=== PATIENT | female | born 1950 | race Caucasian/White ===

== ENCOUNTER 2020-12-10 12:49 | Emergency (ER) | payer MEDICARE, OTHER, SELFPAY ==
--- NOTE | ~2020-12-10 | XR_ITS ---
EXAMINATION: XR finger 1st LT min 2V INDICATION: Left first finger pain TECHNIQUE: Three views of the left first finger are obtained. COMPARISON: None available FINDINGS: Bone alignment is normal. There is moderate osteoarthritis at the triscaphe, first carpomet acarpal, and interphalangeal joints. No fracture is identified. There is mild soft tissue swelling. IMPRESSION: 1. No acute osseous abnormality. Reviewed, dictated and finalized at location A.
[2020-12-10 13:00] VITALS: BP 115/67; PULSE 57; RESP 20; TEMP 36.5; O2SAT 100
--- NOTE | 2020-12-10 13:48 | ED.UPPEXIN ---
HPI - Extremity Injury (Upper) General Chief Complaint: Extremity Injury, Upper Stated Complaint: left thumb injury Time Seen by Provider: 12/10/20 13:40 Source: patient and RN notes reviewed Mode of arrival: ambulatory Limitations: no limitations History of Present Illness HPI narrative: 70 year old female presents to express care with complaints of being outside of her apartment complex and slipping in the mud yesterday and fell forward hyperextending her left thumb and hitting her left knee on the ground. Patient states that she has some bruising to the medial aspect of her left knee but is able to move knee and walk on knee with no problems, has had previous total knee replacement. Left thumb is red and swollen with discomfort with movement of thumb. Patient states that pain to her thumb is throbbing and rates pain a 5/10, has been taking Butalbital for her pain. Patient denies any injury to her head, no loss of consciousness,had to call police to help her get up. Patient is right hand dominant. MD complaint: injury to: left and finger (thumb) Onset (ago): day(s) Other Extremity Injury: Left: fingers (thumb) Handedness: right Place: outdoors Related Data Home Medications Medication Instructions Recorded Confirmed alprazolam 0.5 mg PO BID PRN 12/10/20 12/10/20 amlodipine 10 mg PO DAILY 12/10/20 12/10/20 buspirone 15 mg PO TID 12/10/20 12/10/20 jlavzzudln-kayexgnhkbvlh-dicp 2 tablet PO Q4-6H PRN 12/10/20 12/10/20 duloxetine 30 mg PO BID 12/10/20 12/10/20 gabapentin 400 mg PO BID 12/10/20 12/10/20 levothyroxine 100 mcg PO DAILY 12/10/20 12/10/20 losartan 100 mg PO DAILY 12/10/20 12/10/20 montelukast 10 mg PO DAILY 12/10/20 12/10/20 pantoprazole 40 mg PO QAM 12/10/20 12/10/20 semaglutide [Ozempic] 0.5 mg SUBCUT WEEKLY 12/10/20 12/10/20 simvastatin 20 mg PO DAILY 12/10/20 12/10/20 tizanidine 2 mg PO Q8H PRN 12/10/20 12/10/20 warfarin [Coumadin] 4 mg PO DAILY 12/10/20 12/10/20 Allergies Allergy/AdvReac Type Severity Reaction Status Date / Time Sulfa (Sulfonamide Allergy Mild Rash Verified 12/10/20 13:46 Antibiotics) Corticosteroids AdvReac Intermediate Other Verified 12/10/20 13:47 (Glucocorticoids) hydromorphone [From Dilaudid] AdvReac Mild Itching Verified 12/10/20 13:46 morphine AdvReac Mild Nausea Verified 12/10/20 13:47 Review of Systems Review of Systems: CONSTITUTIONAL: Denies fever, chills, or sweats. EYES: Denies visual changes, redness, or discharge. ENT: Denies rhinorrhea, congestion, sore throat, or otalgia. CARDIOVASCULAR: Denies chest pain, palpitations, or edema. RESPIRATORY: Denies cough or dyspnea. GASTROINTESTINAL: Denies abdominal pain, nausea, vomiting, or diarrhea. GENITOURINARY: Denies dysuria or hematuria. SKIN: Denies rash or itching.Small area of bruising medial aspect of left knee, left thumb and carpal area swollen with bruising noted MUSCULOSKELETAL: Denies acute back pain has history of chronic back problems,no acute joint pain except for pain to left thumb NEUROLOGIC: Denies headache, numbness, or weakness. PSYCHIATRIC: Positive history of anxiety or depression. All systems reviewed & are unremarkable except as noted in HPI and below PMFSH Past Medical History Medical History (Updated 12/11/20 @ 00:00 by Marco Daemrashida) Asthma Bronchitis Diabetes Fibromyalgia Hyperlipidemia Hypertension Surgical History Surgical History (Updated 12/10/20 @ 17:24 by Emilie Vicente NP) H/O section H/O gastric bypass History of bilateral knee replacement Hx of tonsillectomy Family History Family History (Updated 12/10/20 @ 14:10 by Emilie Vicente NP) Mother Heart disease Cerebrovascular accident Hypertension Grandparent Diabetes mellitus Father Hypertension Diabetes mellitus Cirrhosis Sibling Hypertension Social History Social History (Updated 12/10/20 @ 14:09 by Emilie Vicente NP) Smoking status: Never smoker Alcohol intake: former Alcohol use
== END 2020-12-10 14:16 | disposition home or self-care (01) ==
PROVIDERS: Emergency Provider Registered Nurse; PCP Family Medicine
DX: S60.012A Contusion of left thumb without damage to nail, initial encounter (principal); W01.0XXA Fall on same level from slipping, tripping and stumbling without subsequent striking against object, initial encounter; J45.909 Unspecified asthma, uncomplicated; E11.9 Type 2 diabetes mellitus without complications; M79.7 Fibromyalgia; E78.5 Hyperlipidemia, unspecified; I10 Essential (primary) hypertension; Z98.84 Bariatric surgery status; Z96.653 Presence of artificial knee joint, bilateral
CPT/HCPCS: 73140; 99213; G0463

== ENCOUNTER 2021-03-17 11:13 | Emergency (ER) | payer MEDICARE, OTHER, SELFPAY ==
--- NOTE | ~2021-03-17 | XR_ITS ---
EXAMINATION: XR chest 2V DATE: 03/17/2021 11:53 INDICATION: Chest pain TECHNIQUE: PA and lateral views of the chest were obtained. COMPARISON: None FINDINGS: The lungs are clear with no focal airspace opacities, pulmonary edema, pleural effusion or pneumothor ax. The cardiomediastinal silhouette is normal. Instrumented anterior and posterior spinal fusion at the lower cervical spine with the posterior fusion extending to the upper thoracic spine. Distal righ t clavicle resection. Sutures along the anterior abdominal wall with multiple surgical clips in the e pigastric region. IMPRESSION: 1. No acute cardiopulmonary disease. Reviewed, dictated and finalized at location B. EN EXAMINER
--- NOTE | ~2021-03-17 | US_ITS ---
EXAMINATION: US venous doppler LE RT DATE: 03/17/2021 14:03 INDICATION: Right lower limb pain and ecchymosis TECHNIQUE: Grayscale ultrasound images without and with compression and Doppler ultrasound images of the right lower extremity veins were obtained. COMPARISON: None. FINDINGS: The visualized portions of right common femoral vein, profunda (deep) femoral vein, femoral vein, pop liteal vein, posterior tibial veins, peroneal veins, gastrocnemius vein and greater saphenous vein ou tflow are patent. IMPRESSION: 1. No deep venous thrombosis in the right lower limb. Reviewed, dictated and finalized at location B. R LOCOMOTIVE
--- NOTE | 2021-03-17 11:15 | ECG_ITS ---
Measurements Intervals [place] Rate: 65 P: 29 IL: 165 QRS: 4 QRSD: 81 T: 28 QT: 406 QTc: 423 Interpretive Statements SINUS RHYTHM BORDERLINE R WAVE PROGRESSION, ANTERIOR LEADS BASELINE ARTIFACT- I, II ,III, AVR, AVF BORDERLINE ECG Electronically Signed On 03-17-2021 11:29:23 ASSOCIATE by Paul Carrero D.O.
[2021-03-17 11:22] VITALS: BP 151/87; PULSE 73; RESP 18; TEMP 36.3; O2SAT 100
[2021-03-17 11:41] LABS: Basophils Percent Auto 0.2 % (0.2-1.2); Eosinophils Absolute Auto 0.1 K/mm3 (0-0.3); Eosinophils Percent Auto 3.1 % (0-4.4); Hematocrit 36.6 % (37.0-47.0); Hemoglobin 11.9 g/dL (12.0-15.0); Immature Granulocyte Absolute 0.01 K/mm3 (0.00-0.031); Immature Granulocyte Percent A 0.2 % (0-0.5); Mean Corpuscular HGB Conc 32.5 g/dl (32-36); Mean Corpuscular Hemoglobin 31.2 pg (26-34); Mean Corpuscular Volume 96.1 fl (80-100); Monocytes Absolute Auto 0.3 K/mm3 (0.1-0.6); Monocytes Percent Auto 6.7 % (2.6-8.5); Neutrophils Absolute Auto 2.2 K/mm3 (1.3-6.7); Neutrophils Percent Auto 53.8 % (45.5-73.1); Platelet Count Result 205 k/mm3 (150-375); Red Blood Count 3.81 M/mm3 (4.2-5.4); Red Cell Distribution Width 13.5 % (11.5-14.5); White Blood Count 4.2 K/mm3 (4.5-10.0)
[2021-03-17 11:53] LABS: Alanine Aminotransferase 21 U/L (4-35); Albumin Level 4.2 g/dL (3.5-5.1); Alkaline Phosphatase 80 U/L (38-126); Anion Gap 8 mmol/L (8-16); Aspartate Amino Transferase 32 U/L (14-36); Bilirubin,Total 0.4 mg/dL (0.2-1.3); Blood Urea Nitrogen 13 mg/dL (7-17); Calcium 9.3 mg/dL (8.4-10.2); Carbon Dioxide 25 mmol/L (22-30); Chloride 107 mmol/L (98-107); Estimated CRCL calculation 47 ml/min; Estimated Glomerular Filt Rate 60; Glucose 130 mg/dL (65-110); Lipase 44 U/L (23-300); Potassium 3.9 mmol/L (3.4-5.0); Sodium 140 mmol/L (137-145)
[2021-03-17 11:54] LABS: INR 2.6; Prothrombin Time 26.9 Seconds (11.1-14.7)
[2021-03-17 11:55] LABS: Partial Thromboplastin Time 33.2 SECONDS (22.3-36.8)
[2021-03-17 12:02] LABS: Troponin I < 0.012 ng/mL (0.000-0.034)
--- NOTE | 2021-03-17 13:30 | ED.GENADULT ---
HPI - General Adult General Chief complaint: Chest Pain Stated complaint: CP, SOB Time Seen by Provider: 03/17/21 13:06 History of Present Illness HPI narrative: 78-year-old female presents to the emergency department for evaluation of right lower extremity ecchymosis. 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 Patient sat on her chair yesterday incorrectly and struck her right posterior thigh on the armrest. Patient states that she noticed increased ecchymosis and pain of the right lower extremity this morning. Patient also reports some right-sided chest pain. Patient states she has no previous cardiac history. Patient states the chest pain does feel similar to her anxiety and states that she does feel anxious at this time. 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 Patient is taking her Coumadin as directed but is unsure of her INR today. Related Data Allergies Allergy/AdvReac Type Severity Reaction Status Date / Time morphine Allergy Itching Verified 03/17/21 13:07 sulfur dioxide Allergy Itching Verified 03/17/21 13:07 Review of Systems Review of Systems: CONSTITUTIONAL: Denies fever, chills, or sweats. EYES: Denies visual changes, redness, or discharge. ENT: Denies rhinorrhea, congestion, sore throat, or otalgia. CARDIOVASCULAR: Reproducible right-sided chest pain. no palpitations, or edema. RESPIRATORY: Denies cough or dyspnea. GASTROINTESTINAL: Denies abdominal pain, nausea, vomiting, or diarrhea. GENITOURINARY: Denies dysuria or hematuria. SKIN: Denies rash or itching. MUSCULOSKELETAL: Right lower leg pain and ecchymosis NEUROLOGIC: Denies headache, numbness, or weakness. PSYCHIATRIC: Denies anxiety or depression. Exam Narrative: APPEARANCE: Well appearing, no pain in distress, well-nourished. Head normocephalic atraumtaic. EYES: PERRLA/EOMI, conjunctivae very clear. NOSE: Normal no drainage EARS:TMS clear Jesse Zafar, with good light reflex. THROAT: Pharynx clear, no exudate. NECK: Supple. No adenopathy, no masses. RESPIRATORY: Airway patent, repsirations nonlabored. Clear to auscultation bilaterally, no rales, rhonchi, wheezing. CARDIOVASCULAR: Regular rate and rhythm without murmurs rubs or gallops, reproducible right-sided chest tenderness to palpation. ABDOMINAL: Soft, nontender, nondistended, no hepatosplenomegally MUSCULOSKELETAl: Right posterior thigh tenderness to palpation with ecchymosis behind right knee and into right calf with tenderness of the right calf. No significant right-sided lower extremity edema NEURO: Alert. Cranial nerves II through XII intact. Good gait. Good coordination SKIN:: Warm, dry. Normal Color PSYCHIATRIC: Normal affect/mood, normal interaction with parents. Course Course Emergency Course: Patient does have history of DVT and does have some right calf tenderness to palpation. Patient's INR was therapeutic. To further rule out lower extremity DVT from the injury a lower extremity Doppler was ordered and this was negative for DVT. Patient is not tachycardic and patient is not hypoxic. With the negative DVT I have low concern for a concurrent pulmonary embolism at this time. Therefore I am not ordering a CT PE study. Patient did have some right-sided pleuritic chest pain that was worsened with deep inspiration. Patient states she does feel improved at this time. Patient denies any shortness of breath. Patient states the pain that she was having did feel similar to her anxiety. Patient was updated on the results of her ultrasound and labs. Patient was also updated on the anticipated course of illness and on the importance of a close follow-up with her primary care physician. Patient was comfortable with the plan for discharge and close follow-up. Vital Signs Vital signs: Vital Signs Temperature 97.4 F L 03/17/21 11:22 Pulse Rate 73 03/17/21 11:22 Respiratory Rate 18 03/17/21 11:22 Blood Press
[2021-03-17 14:58] LABS: Troponin I < 0.012 ng/mL (0.000-0.034)
[2021-03-17] MEDS: ACETAMINOPHEN/BUTALBITAL/CAFFEINE 325-50-40 MG TABLET (FIORICET) 1 TAB PO (15:09)
== END 2021-03-17 15:25 | disposition home or self-care (01) ==
PROVIDERS: Emergency Medicine; Emergency Provider Emergency Medicine; PCP Family Medicine
DX: S80.11XA Contusion of right lower leg, initial encounter (principal); S89.91XA Unspecified injury of right lower leg, initial encounter; R07.1 Chest pain on breathing; Z86.718 Personal history of other venous thrombosis and embolism; Z79.01 Long term (current) use of anticoagulants; X58.XXXA Exposure to other specified factors, initial encounter
CPT/HCPCS: 36415; 71046; 80053; 83690; 84484; 85025; 85610; 85730; 93005; 93971; 99284; A9270

== ENCOUNTER 2025-04-01 12:57 | Emergency (ER) | payer MEDICARE, MEDICAID, SELFPAY ==
--- OUTSIDE RECORDS SUMMARY | 2024-10-22 05:00 | XMS_ITS ---
Author Organization [facility] [employer] Address [address] [facility] [address] [place] [address] Care Team Providers Care Med Surg Rn Name Role Phone Morris Casas MD Primary Care Provider UnavailMica Manley Unavailable [phone] REASON FOR VISIT 3 month f/u Medications Medication SIG (Take, Route, Frequency, Duration) Notes Start Date End Date Status Cyclobenzaprine HCl 10 MG Tablet Oral 08/08/2023 Not-Taking tiZANidine HCl 2 MG Tablet Oral 08/08/2023 Not-Taking Mounjaro 10 MG/0.5ML Solution Pen-injector Subcutaneous *Reorder from [employer] for eRx and Interaction Alerts* 08/08/2023 Not-Taking Ozempic (0.25 or 0.5 MG/DOSE) 2 MG/3ML Solution Pen-injector Subcutaneous *Pick strength-form from [employer] for eRX* 08/08/2023 Not-Taking busPIRone HCl 10 MG Tablet 1 tablet Oral Twice a day; Duration: 90 days Active Linzess 145 MCG Capsule Oral 08/08/2023 Not-Taking Mounjaro 2.5 MG/0.5ML Solution Auto-injector as directed Subcutaneous *Reorder from [employer] for eRx and Interaction Alerts* 08/08/2023 Active Ketorolac Tromethamine 0.5 % Solution Ophthalmic 08/08/2023 Active Propranolol HCl 20 MG Tablet Oral 08/08/2023 Active Gabapentin 400 MG Capsule 1 capsule Oral four times day 08/08/2023 Active Famotidine 20 MG Tablet Oral 08/08/2023 Active Warfarin Sodium 3 MG Tablet Oral 08/08/2023 Active Losartan Potassium 100 MG Tablet Oral 08/08/2023 Active amLODIPine Besylate 10 MG Tablet Oral 08/08/2023 Active Nystatin 251990 UNIT/ML Suspension Mouth/Throat 08/08/2023 Active Simvastatin 20 MG Tablet Oral 08/08/2023 Active Ofloxacin 0.30% Solution Ophthalmic 08/08/2023 Active Furosemide 40 MG Tablet Oral 08/08/2023 Active Ywirocpvir-CYDV-Sycja ine 50-325-40 MG Tablet Oral 08/08/2023 Active Montelukast Sodium 10 MG Tablet Oral 08/08/2023 Active Pantoprazole Sodium 40 MG Tablet Delayed Release Oral 08/08/2023 Active Levothyroxine Sodium 100 MCG Tablet Oral 08/08/2023 Active Warfarin Sodium 4 MG Tablet Oral 08/08/2023 Active DULoxetine HCl 30 MG Capsule Delayed Release Particles Oral 08/08/2023 Active PEG 3350-KCl-Na Bicarb-NaCl 420 GM Solution Reconstituted Oral 08/08/2023 Active ProAir HFA 108 (90 Base) MCG/ACT Aerosol Solution Inhalation 08/08/2023 Active Restasis 0.05 % Emulsion Ophthalmic 08/08/2023 Active ALPRAZolam 0.5 MG Tablet 1 tablet Oral Twice a day; Duration: 30 days 07/25/2024 Active Social History Sex Assigned At : Social History Observation Description Sex Assigned At Female Encounters Encounter Location Date Provider Diagnosis [address] [address] 10/22/2024 Mica Yanes Plan Of Treatment Next Appt Details Provider Name:Mica Yanes , 04/22/2025 09:45:00 AM, [facility] [address], [place] [address], [place], [address], Progress Notes * SEDRICK KITCHEN KDOB: [birth year] (75 yo F)Acc No.[id number]:10/22/2024 Patient: ZEYAD AGUIARN Randall Provider: Michelle YANES PMHNP :1950 A ge:74 Y S ex:Female Date:10/22/2024 Address:[address] [place], [place] [address] Pcp:Morris Casas MD Subjective: * Chief Complaints: * 3 month f/u * Medications: T akingbusPIRone HCl 10 MG Tablet 1 tablet Oral Twice a day ALPRAZolam 0.5 MG Tablet 1 tablet Oral Twice a day Restasis 0.05 % Emulsion Ophthalmic ProAir HFA 108 (90 Base) MCG/ACT Aerosol Solution Inhalation Levothyroxine Sodium 100 MCG Tablet Oral Pantoprazole Sodium 40 MG Tablet Delayed Release Oral PEG 3350-KCl-Na Bicarb- NaCl 420 GM Solution Reconstituted Oral DULoxetine HCl 30 MG Capsule Delayed Release Particles Oral Warfarin Sodium 4 MG Tablet Oral Montelukast Sodium 10 MG Tablet Oral Ublxaysqud-ICIS-Svytjhjv 50-325-40 MG Tablet Oral Furosemide 40 MG Tablet Oral Ofloxacin 0.30% Solution Ophthalmic Simvastatin 20 MG Tablet Oral Losartan Potassium 100 MG Tablet Oral Warfarin Sodium 3 MG Tablet Oral Famotidine 20 MG Tablet Oral Nystatin 574774 UNIT/ML Suspension Mouth/Throat amLODIPine Besylate 10 MG Tablet Oral Gabapentin 400 MG Capsule 1 capsule Oral four times day Propranolol HCl 20 MG Tablet Oral Ketorolac Tromethamine 0.5 % Solution Ophthalmic Mounjaro 2.5 MG/0.5ML Solution Auto-injector as directed Subcutaneous , Notes to Pharmacist: *Reorder from [facility] for eRx and Interaction Alerts*Taking busPIRone HCl 10 MG Tablet 1 tablet Oral Twice a day Taking ALPRAZolam 0.5 MG Tablet 1 tablet Oral Twice a day Taking Restasis 0.05 % Emulsion Ophthalmic Taking ProAir HFA 108 (90 Base) MCG/ACT Aerosol Solution Inhalation Taking Levothyroxine Sodium 100 MCG Tablet Oral Taking Pantoprazole Sodium 40 MG Tablet Delayed Release Oral Taking PEG 3350-KCl-Na Bicarb-NaCl 420 GM Solution Reconstituted Oral Taking DULoxetine HCl 30 MG Capsule Delayed Release Particles Oral Taking Warfarin Sodium 4 MG Tablet Oral Taking Montelukast Sodium 10 MG Tablet Oral Taking Oeaqidcytj-FPGM-Hglxdxbv 50-325-40 MG Tablet Oral Taking Furosemide 40 MG Tablet Oral Taking Ofloxacin 0.30% Solution Ophthalmic Taking Simvastatin 20 MG Tablet Oral Taking Losartan Potassium 100 MG Tablet Oral Taking Warfarin Sodium 3 MG Tablet Oral Taking Famotidine 20 MG Tablet Oral Taking Nystatin 073048 UNIT/ML Suspension Mouth/Throat Taking amLODIPine Besylate 10 MG Tablet Oral Taking Gabapentin 400 MG Capsule 1 capsule Oral four times day Taking Propranolol HCl 20 MG Tablet Oral Taking Ketorolac Tromethamine 0.5 % Solution Ophthalmic Taking Mounjaro 2.5 MG/0.5ML Solution Auto-injector as directed Subcutaneous , Notes to Pharmacist: *Reorder from [facility] for eRx and Interaction Alerts*Not-TakingLinzess 145 MCG Capsule Oral Ozempic (0.25 or 0.5 MG/DOSE) 2 MG/3ML Solution Pen-injector Subcutaneous , Notes to Pharmacist: *Pick strength-form from [facility] for eRX*Mounjaro 10 MG/0.5ML Solution Pen-injector Subcutaneous , Notes to Pharmacist: *Reorder from [facility] for eRx and Interaction Alerts*tiZANidine HCl 2 MG Tablet Oral Cyclobenzaprine HCl 10 MG Tablet Oral Not-Taking Linzess 145 MCG Capsule Oral Not-Taking Ozempic (0.25 or 0.5 MG/DOSE) 2 MG/3ML Solution Pen-injector Subcutaneous , Notes to Pharmacist: *Pick strength-form from [facility] for eRX*Not-Taking Mounjaro 10 MG/0.5ML Solution Pen-injector Subcutaneous , Notes to Pharmacist: *Reorder from [facility] for eRx and Interaction Alerts*Not-Taking tiZANidine HCl 2 MG Tablet Oral Not-Taking Cyclobenzaprine HCl 10 MG Tablet Oral Billing Information: * Procedure Codes: * Electronic signature of FEDE Srivastava on 04/01/2025 at 01:00 PM HISTOLOGY SUPERVISOR Sign off status: Pending * Provider: FEDE DEWITT Date: 0 10/22/2024 Generated for Fe Sims/Perla on: 06/02/2024 01:00 PM HISTOLOGY SUPERVISOR
--- OUTSIDE RECORDS SUMMARY | 2024-12-18 05:00 | XMS_ITS ---
Author Organization [facility] [employer] Address [facility] [address] Care Team Providers Care Director Of Diversity And Inclusion Name Role Phone Yessenia ANGULO, Morris Primary Care Provider Mica Steward Unavailable [phone] Smitha Allen Unavailable [phone] REASON FOR VISIT Therapy Visit Social History Sex Assigned At : Social History Observation Description Sex Assigned At Female Encounters Encounter Location Date Provider Diagnosis [facility] [employer] [place] [id number] [address] 12/18/2024 Smitha Allen Plan Of Treatment Next Appt Details Provider Name:Mica Yanes , 04/22/2025 09:45:00 AM, [facility], [facility] [address], [place], [address], Progress Notes * SEDRICK KITCHEN KDOB: [birth year] (75 yo F)Acc No.[id number]:12/18/2024 Patient: Nomra RAPHAELSEDRICK Provider: Jennifer [place] LCSW :1950 A ge:74 Y S ex:Female Date:12/18/2024 Address:[address] [place], [place] [id number] Pcp:Morris Casas MD Data: * Chief Complaints: * T herapy Visit * Electronic signature of Smitha Allen LCSW on 04/01/2025 at 01:01 PM VEHICLE CALIBRATION ENGINEER Sign off status: Pending Signatures: No Ad Hoc Signature Added * Provider: Jennifer [place] LCSW Date: 0 12/18/2024 Generated for Fe powell/Taylor/Perla on: 1 06/02/2024 01:01 PM VEHICLE CALIBRATION ENGINEER
[2025-04-01 13:01] VITALS: BP 113/73; PULSE 67; RESP 18; TEMP 36.6; O2SAT 98
--- OUTSIDE RECORDS SUMMARY | 2025-04-01 13:01 | XMS_ITS | Patient Health Record ---
Author Organization [facility] Address [address] [place] [address] Care Team Providers Care Wood Gluer Name Role Phone Morris Casas MD Primary Care Provider UnavailMica Manley Unavailable [phone] Smitha Bloom Unavailable [phone] Allergies Allergen (clinical drug ingredient) Drug/Non Drug Allergy documented on EMR Reaction Allergy Type Onset Date Status CORTICOSTEROIDS (GLUCOCORTICOIDS) (uncoded) Unknown Allergy 07/18/2023 Active Substance with sulfonamide structure and antibacterial mechanism of action (substance) SULFA (SULFONAMIDE ANTIBIOTICS) (uncoded) Unknown Allergy 07/18/2023 Active hydromorphone Dilaudid Unknown Drug Allergy 07/18/2023 Ac tive morphine Morphine Unknown Drug Allergy 07/18/2023 Active Reason For Referral No Information Medications Medication SIG (Take, Route, Frequency, Duration) Notes Start Date End Date Status ALPRAZolam 0.5 MG Tablet 1 tablet Oral Twice a day; Duration: 30 days 10/22/2024 Active Warfarin Sodium 3 MG Tablet Oral 08/08/2023 Active Simvastatin 20 MG Tablet Oral 08/08/2023 Active Pjvbpbbyvg-ONXR-Aaakm ine 50-325-40 MG Tablet Oral 08/08/2023 Active busPIRone HCl 15 MG Tablet 1 tablet Orally Twice a day; Duration: 90 days Active Pantoprazole Sodium 40 MG Tablet Delayed Release Oral 08/08/2023 Active Ozempic (0.25 or 0.5 MG/DOSE) 2 MG/3ML Solution Pen-injector Subcutaneous *Pick strength-form from [email or web address] for eRX* 08/08/2023 Not-Taking Levothyroxine Sodium 100 MCG Tablet Oral 08/08/2023 Active Linzess 145 MCG Capsule Oral 08/08/2023 Not-Taking ProAir HFA 108 (90 Base) MCG/ACT Aerosol Solution Inhalation 08/08/2023 Active Gabapentin 400 MG Capsule 1 capsule Oral four times day 08/08/2023 Active Restasis 0.05 % Emulsion Ophthalmic 08/08/2023 Active Famotidine 20 MG Tablet Oral 08/08/2023 Active Montelukast Sodium 10 MG Tablet Oral 08/08/2023 Active Warfarin Sodium 4 MG Tablet Oral 08/08/2023 Active Cyclobenzaprine HCl 10 MG Tablet Oral 08/08/2023 Not-Taking DULoxetine HCl 30 MG Capsule Delayed Release Particles Oral 08/08/2023 Active tiZANidine HCl 2 MG Tablet Oral 08/08/2023 Not-Taking PEG 3350-KCl-Na Bicarb-NaCl 420 GM Solution Reconstituted Oral 08/08/2023 Active Mounjaro 10 MG/0.5ML Solution Pen-injector Subcutaneous *Reorder from [email or web address] for eRx and Interaction Alerts* 08/08/2023 Not-Taking Immunizations Vaccine Route Administration Date Status Comme nts Influenza virus vaccine, quadrivalent (IIV4), split virus, 0.25 mL dosage Unknown 12/09/2017 Administered Influenza virus vaccine, quadrivalent (IIV4), split virus, 0.25 mL dosage Unknown 12/20/2018 Administered Influenza virus vaccine, quadrivalent (IIV4), split virus, 0.25 mL dosage Unknown 12/11/2019 Administered Influenza, high dose seasonal Unknown 12/20/2018 Admini stered Influenza, seasonal, injecta ble, preservative free, 3 yrs and above Unknown 01/31/2014 Administered Influenza, unspecified formulation Unknown 12/22/2020 A dministered Pfizer [employer] Covid-19 Vac cine 2nd dose Unknown 07/03/2020 Administered Pfizer [employer] Covid-19 Vac cine 2nd dose Unknown 07/24/2020 Administered Pfizer [employer] Covid-19 Vac cine 2nd dose Unknown 02/01/2021 Administered Pfizer [employer] Covid-19 Vac cine 2nd dose Unknown 08/04/2021 Administered Pfizer-Biontech Covid-19 Vac cine 1st dose Unknown 01/06/2022 Administered Pneumococcal conjugate PCV 13 Unknown 04/10/2014 Admini stered Pneumococcal polysaccharide PPV23 Unknown 04/10/2016 Ad ministered Tdap Unknown 04/18/2019 Administered Social History Tobacco Use: Social History Observation Description Date Details (start date - stop date) Never Smoker NA - NA Sex Assigned At : Social History Observation Description Sex Assigned At Female Social History Tobacco Use: Social Info Question Answer Notes Tobacco Control (Standard) Tobacco use: Nonsmoker Additional Details Category Social Info Options Details Migrated Social History Migrated Social History Alcohol Intake: None 07/16/2018,Tobacco Years: Never smoker 07/16/2018,Smoking Status: 0 05/15/2023 Problems Problem Type SNOMED Code ICD Code Onset Dates Problem Status W/U Status Risk Notes Problem Mild recurrent major depression (46580177) Major depressive disorder, recurrent, mild (F33.0) 4 Active confirmed Problem Generalized anxiety disorder (57540437) Generalized anxiety disorder (F41.1) 4 Active confirmed Problem Posttraumatic stress disorder (71516952) Post-traumatic stress disorder, chronic (F43.12) 4 Active confirmed Problem Primary insomnia (3518696) Primary insomnia (F51.01) 4 Active confirmed Problem Long-term current use of drug therapy (425677555) Other shelter (current) drug therapy (Z79.899) 4 Active confirmed Problem Depression Screening (012432744) Encounter for screening for depression (Z13.31) Active confirmed Encounters Encounter Location Date Provider Diagnosis [employer] [address] [facility] [address] [address] 04/18/2024 Smitha Hemdenilson Post-traumatic stres s disorder, chronic F43.12 ; Major depressive disorder, recurrent, mild F33.0 and Generalized anxiety disorder F41.1 [employer] [address] [facility] [address] [address] 04/25/2024 Mica Yanes Major depressive disorder, recurrent, mild F33.0 ; Generalized anxiety disorder F41.1 ; Post-traumatic stress disorder, chronic F43.12 ; Primary insomnia F51.01 and 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 [employer] [facility] [address] [facility] [address] [address] 05/08/2024 Smitha Hemann Post-traumatic stres s disorder, chronic F43.12 ; Major depressive disorder, recurrent, mild F33.0 and Generalized anxiety disorder F41.1 [place] [address] [address] 05/29/2024 Smitha Hemann Post-traumatic stres s disorder, chronic F43.12 ; Major depressive disorder, recurrent, mild F33.0 and Generalized anxiety disorder F41.[address] [address] 06/20/2024 Smitha Hemann Post-traumatic stres s disorder, chronic F43.12 ; Major depressive disorder, recurrent, mild F33.0 and Generalized anxiety disorder F41.[address] [address] 07/18/2024 Smitha Hemann Post-traumatic stres s disorder, chronic F43.12 ; Major depressive disorder, recurrent, mild F33.0 and Generalized anxiety disorder F41.[address] [address] 07/25/2024 Mica Yanes Major depressive disorder, recurrent, mild F33.0 ; Generalized anxiety disorder F41.1 ; Post-traumatic stress disorder, chronic F43.12 ; Primary insomnia F51.01 ; 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 and Encounter for screening for depression Z13.[address] [address] 08/14/2024 Smitha Hemann Post-traumatic stres s disorder, chronic F43.12 ; Major depressive disorder, recurrent, mild F33.0 ; Generalized anxiety disorder F41.1 and Encounter for screening for depression Z13.31 [place] [address] [address] 09/16/2024 Smitha Hemann Major depressive disorder, recurrent, mild F33.0 ; Post-traumatic stress disorder, chronic F43.12 and Generalized anxiety disorder F41.1 [place] [address] [address] 10/17/2024 Smitha Hemann Encounter for screening for depression Z13.31 ; Post-traumatic stress disorder, chronic F43.12 ; Major depressive disorder, recurrent, mild F33.0 and Generalized anxiety disorder F41.1 [facility] [address] [place] [address] 10/22/2024 Mica aYnes Major depressive disorder, recurrent, mild F33.0 ; Generalized anxiety disorder F41.1 ; Post-traumatic stress disorder, chronic F43.12 ; Primary insomnia F51.01 ; Other shelter (current) drug therapy Z79.899 and Encounter for screening for depression Z13.31 [facility] [address] [facility] [address] [place] [address] 11/19/2024 Smitha Hemann Post-traumatic stres s disorder, chronic F43.12 ; Major depressive disorder, recurrent, mild F33.0 and Generalized anxiety disorder F41.1 [facility] [address] [facility] [address] [place] [address] 12/11/2024 Smitha Hemann Post-traumatic stres s disorder, chronic F43.12 and Major depressive disorder, recurrent, mild F33.0 [facility] [address] [facility] [address] [place] [address] 01/07/2025 Smitha Hemann Post-traumatic stres s disorder, chronic F43.12 and Generalized anxiety disorder F41.1 [facility] [address] [facility] [address] [place] [address] 01/21/2025 Mica Yanes Major depressive disorder, recurrent, mild F33.0 ; Generalized anxiety disorder F41.1 ; Post-traumatic stress disorder, chronic F43.12 ; Primary insomnia F51.01 and Other shelter (current) drug therapy Z79.899 [facility] [address] [place] [address] 02/06/2025 Smitha Hemann Post-traumatic stres s disorder, chronic F43.12 [facility] [address] [facility] [address] [place] [address] 10/03/2024 Mica Yanes [facility] [address] [place] [address] 10/22/2024 Mica Yanes [facility], [facility] [address] [place] [address] 07/25/2024 Mica Yanes [facility], [facility] [address] [place] [address] 08/14/2024 Mica Yanes [facility], [facility] [address] [place] [address] 10/22/2024 Mica Yanes [facility], [facility] [address] [facility] [address] [place] [address] 12/09/2024 Mica Yanes [facility], [facility] [address] [facility] [address] [place] [address] 12/10/2024 Smitha Bloom [facility], [facility] [address] [facility] [address] [place] [address] 02/06/2025 Mica Yanes [facility], [facility] [address] [facility] [address] [place] [address] 02/06/2025 Mica Yanes [facility], [facility] [address] [facility] [address] [place] [address] 02/06/2025 Mica Yanes Assessments Encounter Date Diagnosis (ICD Code) Assessment Notes Treatment Notes Treatment Clinical Notes Section Notes 04/18/2024 Post-traumatic stress disorder, chronic (ICD-10 - F43.12) 04/25/2024 Major depressive disorder, recurrent, mild (ICD-10 - F33.0) Preventing Depression From Coming Back: Care Instructions material was published, Seasonal Affective Disorder: Care Instructions material was published, Depression Treatment: Care Instructions material was published, Learning About How to Get Help During a Mental Health Crisis material was published, Learning About Depression Screening material was published 1. major depression - educated on all medications, benefits, side effects and risk, and educated on depression, anxiety, and mood d/o and educated on compliance of medications, appointment's, continue therapy discussion with patient about course of treatment and patient instructions. SSRI side effects discussed including but not limited to, gastric upset, nausea, vomiting, diarrhea and/or constipation, weight changes, sexual side effects including loss of libido, increased suicidal thoughts/behaviors in children and young adults, and serotonin syndrome. Cymbalta 30 mg daily PCP prescribes COVID vaccine 04/24/24 2. Generalized anxiety disorder - Alprazolam 0.5 mg - at night and 1/2 in day and take other 1/2 when need it in day, no refill while on pain medications Buspar 10 mg am and lunch GDR hx schedule therapy Smitha Discussed and educated pt regarding benzodiazepines are generally not intended for prolonged use and that use can cause tolerance, dependence, depression, and associated memory issues including dementias (this list is not exhaustive). Benzodiazepine use is generally not recommended concurrently with pain medications and/or other controlled substances due to increased risks of profound sedation, respiratory depression, coma, and even . They are not to be used with any alcohol, as this combination can also be lethal. Patient was provided caution 3. Primary insomnia -Melatonin 3 mg OTC 4. Chronic post-traumatic stress disorder -therapy 5. Long-term drug therapy LABS scheduled with PCP and iron 04/18/2024 Major depressive disorder, recurrent, mild (ICD-10 - F33.0) 05/08/2024 Major depressive disorder, recurrent, mild (ICD-10 - F33.0) 05/08/2024 Post-traumatic stress disorder, chronic (ICD-10 - F43.12) 05/29/2024 Major depressive disorder, recurrent, mild (ICD-10 - F33.0) 05/29/2024 Post-traumatic stress disorder, chronic (ICD-10 - F43.12) 06/20/2024 Major depressive disorder, recurrent, mild (ICD-10 - F33.0) 07/18/2024 Post-traumatic stress disorder, chronic (ICD-10 - F43.12) 07/25/2024 Major depressive disorder, recurrent, mild (ICD-10 - F33.0) Preventing Depression From Coming Back: Care Instructions material was published, Seasonal Affective Disorder: Care Instructions material was published, Depression Treatment: Care Instructions material was published, Learning About How to Get Help During a Mental Health Crisis material was published, Learning About Depression Screening material was published 1. major depression - educated on all medications, benefits, side effects and risk, and educated on depression, anxiety, and mood d/o and educated on compliance of medications, appointment's, continue therapy discussion with patient about course of treatment and patient instructions. SSRI side effects discussed including but not limited to, gastric upset, nausea, vomiting, diarrhea and/or constipation, weight changes, sexual side effects including loss of libido, increased suicidal thoughts/behaviors in children and young adults, and serotonin syndrome. Cymbalta 30 mg daily PCP prescribes COVID vaccine 1/15/25 has not [address] car since 05/03 2. Generalized anxiety disorder - Alprazolam 0.5 mg - at night and 1/2 in day and take other 1/2 when need it in day, no refill while on pain medications Buspar 10 mg am and lunch GDR hx schedule therapy Smitha Discussed and educated pt regarding benzodiazepines are generally not intended for prolonged use and that use can cause tolerance, dependence, depression, and associated memory issues including dementias (this list is not exhaustive). Benzodiazepine use is generally not recommended concurrently with pain medications and/or other controlled substances due to increased risks of profound sedation, respiratory depression, coma, and even . They are not to be used with any alcohol, as this combination can also be lethal. Patient was provided caution 3. Primary insomnia -Melatonin 3 mg OTC 4. Chronic post-traumatic stress disorder -therapy 5. Long-term drug therapy LABS with PCP and iron 06/20/2024 Post-traumatic stress disorder, chronic (ICD-10 - F43.12) 07/18/2024 Major depressive disorder, recurrent, mild (ICD-10 - F33.0) 08/14/2024 Major depressive disorder, recurrent, mild (ICD-10 - F33.0) 08/14/2024 Post-traumatic stress disorder, chronic (ICD-10 - F43.12) 09/16/2024 Major depressive disorder, recurrent, mild (ICD-10 - F33.0) 10/17/2024 Post-traumatic stress disorder, chronic (ICD-10 - F43.12) 10/17/2024 Encounter for screening for depression (ICD-10 - Z13.31) 10/22/2024 Major depressive disorder, recurrent, mild (ICD-10 - F33.0) Preventing Depression From Coming Back: Care Instructions material was published, Seasonal Affective Disorder: Care Instructions material was published, Depression Treatment: Care Instructions material was published, Learning About How to Get Help During a Mental Health Crisis material was published, Learning About Depression Screening material was published 1. major depression - educated on all medications, benefits, side effects and risk, and educated on depression, anxiety, and mood d/o and educated on compliance of medications, appointment's, continue therapy discussion with patient about course of treatment and patient instructions. SSRI side effects discussed including but not limited to, gastric upset, nausea, vomiting, diarrhea and/or constipation, weight changes, sexual side effects including loss of libido, increased suicidal thoughts/behaviors in children and young adults, and serotonin syndrome. Cymbalta 30 mg daily PCP prescribes COVID vaccine 04/24/24 has [address] car since 05/03 2. Generalized anxiety disorder - Alprazolam 0.5 mg - at night and 1/2 in day and take other 1/2 when need it in day, no refill while on pain medications Buspar 10 mg am and lunch GDR hx schedule therapy Smitha Discussed and educated pt regarding benzodiazepines are generally not intended for prolonged use and that use can cause tolerance, dependence, depression, and associated memory issues including dementias (this list is not exhaustive). Benzodiazepine use is generally not recommended concurrently with pain medications and/or other controlled substances due to increased risks of profound sedation, respiratory depression, coma, and even . They are not to be used with any alcohol, as this combination can also be lethal. Patient was provided caution 3. Primary insomnia -Melatonin 3 mg OTC 4. Chronic post-traumatic stress disorder -therapy 5. Long-term drug therapy LABS with PCP and iron 09/16/2024 Post-traumatic stress disorder, chronic (ICD-10 - F43.12) 11/19/2024 Major depressive disorder, recurrent, mild (ICD-10 - F33.0) 11/19/2024 Post-traumatic stress disorder, chronic (ICD-10 - F43.12) 12/11/2024 Major depressive disorder, recurrent, mild (ICD-10 - F33.0) 12/11/2024 Post-traumatic stress disorder, chronic (ICD-10 - F43.12) 01/07/2025 Post-traumatic stress disorder, chronic (ICD-10 - F43.12) 01/21/2025 Major depressive disorder, recurrent, mild (ICD-10 - F33.0) Preventing Depression From Coming Back: Care Instructions material was published, Seasonal Affective Disorder: Care Instructions material was published, Depression Treatment: Care Instructions material was published, Learning About How to Get Help During a Mental Health Crisis material was published, Learning About Depression Screening material was published 1. major depression - educated on all medications, benefits, side effects and risk, and educated on depression, anxiety, and mood d/o and educated on compliance of medications, appointment's, continue therapy discussion with patient about course of treatment and patient instructions. SSRI side effects discussed including but not limited to, gastric upset, nausea, vomiting, diarrhea and/or constipation, weight changes, sexual side effects including loss of libido, increased suicidal thoughts/behaviors in children and young adults, and serotonin syndrome. Cymbalta 30 mg daily PCP prescribes COVID vaccine 04/24/[address] car since 05/03 2. Generalized anxiety disorder - patient would like to increase Buspar and stop Alprazolam 0.5 mg - at night and 1/2 in day and take other 1/2 when need it in day,- reported taking 1/2 tab daily related to surgery planned 02/22/25 shoulder and will be on pain rx no refill while on pain medications increase Buspar 15 mg am and lunch GDR hx schedule therapy Smitha Discussed and educated pt regarding benzodiazepines are generally not intended for prolonged use and that use can cause tolerance, dependence, depression, and associated memory issues including dementias (this list is not exhaustive). Benzodiazepine use is generally not recommended concurrently with pain medications and/or other controlled substances due to increased risks of profound sedation, respiratory depression, coma, and even . They are not to be used with any alcohol, as this combination can also be lethal. Patient was provided caution 3. Primary insomnia -Melatonin 3 mg OTC 4. Chronic post-traumatic stress disorder -therapy 5. Long-term drug therapy LABS with PCP and iron 01/21/2025 Generalized anxiety disorder (ICD-10 - F41.1) Generalized Anxiety Disorder: Care Instructions material was published, Learning About Generalized Anxiety Disorder material was published, Learning About Anxiety Disorders material was published 1. major depression - educated on all medications, benefits, side effects and risk, and educated on depression, anxiety, and mood d/o and educated on compliance of medications, appointment's, continue therapy discussion with patient about course of treatment and patient instructions. SSRI side effects discussed including but not limited to, gastric upset, nausea, vomiting, diarrhea and/or constipation, weight changes, sexual side effects including loss of libido, increased suicidal thoughts/behaviors in children and young adults, and serotonin syndrome. Cymbalta 30 mg daily PCP prescribes COVID vaccine 04/24/[address] car since 05/03 2. Generalized anxiety disorder - patient would like to increase Buspar and stop Alprazolam 0.5 mg - at night and 1/2 in day and take other 1/2 when need it in day,- reported taking 1/2 tab daily related to surgery planned 02/22/25 shoulder and will be on pain rx no refill while on pain medications increase Buspar 15 mg am and lunch GDR hx schedule therapy Smitha Discussed and educated pt regarding benzodiazepines are generally not intended for prolonged use and that use can cause tolerance, dependence, depression, and associated memory issues including dementias (this list is not exhaustive). Benzodiazepine use is generally not recommended concurrently with pain medications and/or other controlled substances due to increased risks of profound sedation, respiratory depression, coma, and even . They are not to be used with any alcohol, as this combination can also be lethal. Patient was provided caution 3. Primary insomnia -Melatonin 3 mg OTC 4. Chronic post-traumatic stress disorder -therapy 5. Long-term drug therapy LABS with PCP and iron 02/06/2025 Post-traumatic stress disorder, chronic (ICD-10 - F43.12) 01/21/2025 Post-traumatic stress disorder, chronic (ICD-10 - F43.12) Post-Traumatic Stress Disorder (PTSD): Care Instructions material was published 1. major depression - educated on all medications, benefits, side effects and risk, and educated on depression, anxiety, and mood d/o and educated on compliance of medications, appointment's, continue therapy discussion with patient about course of treatment and patient instructions. SSRI side effects discussed including but not limited to, gastric upset, nausea, vomiting, diarrhea and/or constipation, weight changes, sexual side effects including loss of libido, increased suicidal thoughts/behaviors in children and young adults, and serotonin syndrome. Cymbalta 30 mg daily PCP prescribes COVID vaccine 04/24/24 [address] car since 05/03 2. Generalized anxiety disorder - patient would like to increase Buspar and stop Alprazolam 0.5 mg - at night and 1/2 in day and take other 1/2 when need it in day,- reported taking 1/2 tab daily related to surgery planned 02/22/25 shoulder and will be on pain rx no refill while on pain medications increase Buspar 15 mg am and lunch GDR hx schedule therapy Smitha Discussed and educated pt regarding benzodiazepines are generally not intended for prolonged use and that use can cause tolerance, dependence, depression, and associated memory issues including dementias (this list is not exhaustive). Benzodiazepine use is generally not recommended concurrently with pain medications and/or other controlled substances due to increased risks of profound sedation, respiratory depression, coma, and even . They are not to be used with any alcohol, as this combination can also be lethal. Patient was provided caution 3. Primary insomnia -Melatonin 3 mg OTC 4. Chronic post-traumatic stress disorder -therapy 5. Long-term drug therapy LABS with PCP and iron 01/07/2025 Generalized anxiety disorder (ICD-10 - F41.1) 11/19/2024 Generalized anxiety disorder (ICD-10 - F41.1) 10/17/2024 Major depressive disorder, recurrent, mild (ICD-10 - F33.0) 10/22/2024 Generalized anxiety disorder (ICD-10 - F41.1) Generalized Anxiety Disorder: Care Instructions material was published, Learning About Generalized Anxiety Disorder material was published, Learning About Anxiety Disorders material was published 1. major depression - educated on all medications, benefits, side effects and risk, and educated on depression, anxiety, and mood d/o and educated on compliance of medications, appointment's, continue therapy discussion with patient about course of treatment and patient instructions. SSRI side effects discussed including but not limited to, gastric upset, nausea, vomiting, diarrhea and/or constipation, weight changes, sexual side effects including loss of libido, increased suicidal thoughts/behaviors in children and young adults, and serotonin syndrome. Cymbalta 30 mg daily PCP prescribes COVID vaccine 04/24/[address] car since 05/03 2. Generalized anxiety disorder - Alprazolam 0.5 mg - at night and 1/2 in day and take other 1/2 when need it in day, no refill while on pain medications Buspar 10 mg am and lunch [facility]DR hx schedule therapy [place] Discussed and educated pt regarding benzodiazepines are generally not intended for prolonged use and that use can cause tolerance, dependence, depression, and associated memory issues including dementias (this list is not exhaustive). Benzodiazepine use is generally not recommended concurrently with pain medications and/or other controlled substances due to increased risks of profound sedation, respiratory depression, coma, and even . They are not to be used with any alcohol, as this combination can also be lethal. Patient was provided caution 3. Primary insomnia -Melatonin 3 mg OTC 4. Chronic post-traumatic stress disorder -therapy 5. Long-term drug therapy LABS with PCP and iron 09/16/2024 Generalized anxiety disorder (ICD-10 - F41.1) 08/14/2024 Generalized anxiety disorder (ICD-10 - F41.1) 07/18/2024 Generalized anxiety disorder (ICD-10 - F41.1) 07/25/2024 Generalized anxiety disorder (ICD-10 - F41.1) Generalized Anxiety Disorder: Care Instructions material was published, Learning About Generalized Anxiety Disorder material was published, Learning About Anxiety Disorders material was published 1. major depression - educated on all medications, benefits, side effects and risk, and educated on depression, anxiety, and mood d/o and educated on compliance of medications, appointment's, continue therapy discussion with patient about course of treatment and patient instructions. SSRI side effects discussed including but not limited to, gastric upset, nausea, vomiting, diarrhea and/or constipation, weight changes, sexual side effects including loss of libido, increased suicidal thoughts/behaviors in children and young adults, and serotonin syndrome. Cymbalta 30 mg daily PCP prescribes COVID vaccine 04/24/[address] car since 05/03 2. Generalized anxiety disorder - Alprazolam 0.5 mg - at night and 1/2 in day and take other 1/2 when need it in day, no refill while on pain medications Buspar 10 mg am and lunch GDR hx schedule therapy [place] Discussed and educated pt regarding benzodiazepines are generally not intended for prolonged use and that use can cause tolerance, dependence, depression, and associated memory issues including dementias (this list is not exhaustive). Benzodiazepine use is generally not recommended concurrently with pain medications and/or other controlled substances due to increased risks of profound sedation, respiratory depression, coma, and even . They are not to be used with any alcohol, as this combination can also be lethal. Patient was provided caution 3. Primary insomnia -Melatonin 3 mg OTC 4. Chronic post-traumatic stress disorder -therapy 5. Long-term drug therapy LABS with PCP and iron 06/20/2024 Generalized anxiety disorder (ICD-10 - F41.1) 05/29/2024 Generalized anxiety disorder (ICD-10 - F41.1) 05/08/2024 Generalized anxiety disorder (ICD-10 - F41.1) 04/18/2024 Generalized anxiety disorder (ICD-10 - F41.1) 04/25/2024 Generalized anxiety disorder (ICD-10 - F41.1) Generalized Anxiety Disorder: Care Instructions material was published, Learning About Generalized Anxiety Disorder material was published, Learning About Anxiety Disorders material was published 1. major depression - educated on all medications, benefits, side effects and risk, and educated on depression, anxiety, and mood d/o and educated on compliance of medications, appointment's, continue therapy discussion with patient about course of treatment and patient instructions. SSRI side effects discussed including but not limited to, gastric upset, nausea, vomiting, diarrhea and/or constipation, weight changes, sexual side effects including loss of libido, increased suicidal thoughts/behaviors in children and young adults, and serotonin syndrome. Cymbalta 30 mg daily PCP prescribes COVID vaccine 04/24/24 2. Generalized anxiety disorder - Alprazolam 0.5 mg - at night and 1/2 in day and take other 1/2 when need it in day, no refill while on pain medications Buspar 10 mg am and lunch GDR hx schedule therapy [place] Discussed and educated pt regarding benzodiazepines are generally not intended for prolonged use and that use can cause tolerance, dependence, depression, and associated memory issues including dementias (this list is not exhaustive). Benzodiazepine use is generally not recommended concurrently with pain medications and/or other controlled substances due to increased risks of profound sedation, respiratory depression, coma, and even . They are not to be used with any alcohol, as this combination can also be lethal. Patient was provided caution 3. Primary insomnia -Melatonin 3 mg OTC 4. Chronic post-traumatic stress disorder -therapy 5. Long-term drug therapy LABS scheduled with PCP and iron 04/25/2024 Post-traumatic stress disorder, chronic (ICD-10 - F43.12) Post-Traumatic Stress Disorder (PTSD): Care Instructions material was published 1. major depression - educated on all medications, benefits, side effects and risk, and educated on depression, anxiety, and mood d/o and educated on compliance of medications, appointment's, continue therapy discussion with patient about course of treatment and patient instructions. SSRI side effects discussed including but not limited to, gastric upset, nausea, vomiting, diarrhea and/or constipation, weight changes, sexual side effects including loss of libido, increased suicidal thoughts/behaviors in children and young adults, and serotonin syndrome. Cymbalta 30 mg daily PCP prescribes COVID vaccine 04/24/24 2. Generalized anxiety disorder - Alprazolam 0.5 mg - at night and 1/2 in day and take other 1/2 when need it in day, no refill while on pain medications Buspar 10 mg am and lunch GDR hx schedule therapy [place] Discussed and educated pt regarding benzodiazepines are generally not intended for prolonged use and that use can cause tolerance, dependence, depression, and associated memory issues including dementias (this list is not exhaustive). Benzodiazepine use is generally not recommended concurrently with pain medications and/or other controlled substances due to increased risks of profound sedation, respiratory depression, coma, and even . They are not to be used with any alcohol, as this combination can also be lethal. Patient was provided caution 3. Primary insomnia -Melatonin 3 mg OTC 4. Chronic post-traumatic stress disorder -therapy 5. Long-term drug therapy LABS scheduled with PCP and iron 07/25/2024 Post-traumatic stress disorder, chronic (ICD-10 - F43.12) Post-Traumatic Stress Disorder (PTSD): Care Instructions material was published 1. major depression - educated on all medications, benefits, side effects and risk, and educated on depression, anxiety, and mood d/o and educated on compliance of medications, appointment's, continue therapy discussion with patient about course of treatment and patient instructions. SSRI side effects discussed including but not limited to, gastric upset, nausea, vomiting, diarrhea and/or constipation, weight changes, sexual side effects including loss of libido, increased suicidal thoughts/behaviors in children and young adults, and serotonin syndrome. Cymbalta 30 mg daily PCP prescribes COVID vaccine 04/24/[address] car since 05/03 2. Generalized anxiety disorder - Alprazolam 0.5 mg - at night and 1/2 in day and take other 1/2 when need it in day, no refill while on pain medications Buspar 10 mg am and lunch GDR hx schedule therapy [place] Discussed and educated pt regarding benzodiazepines are generally not intended for prolonged use and that use can cause tolerance, dependence, depression, and associated memory issues including dementias (this list is not exhaustive). Benzodiazepine use is generally not recommended concurrently with pain medications and/or other controlled substances due to increased risks of profound sedation, respiratory depression, coma, and even . They are not to be used with any alcohol, as this combination can also be lethal. Patient was provided caution 3. Primary insomnia -Melatonin 3 mg OTC 4. Chronic post-traumatic stress disorder -therapy 5. Long-term drug therapy LABS with PCP and iron 10/22/2024 Post-traumatic stress disorder, chronic (ICD-10 - F43.12) Post-Traumatic Stress Disorder (PTSD): Care Instructions material was published 1. major depression - educated on all medications, benefits, side effects and risk, and educated on depression, anxiety, and mood d/o and educated on compliance of medications, appointment's, continue therapy discussion with patient about course of treatment and patient instructions. SSRI side effects discussed including but not limited to, gastric upset, nausea, vomiting, diarrhea and/or constipation, weight changes, sexual side effects including loss of libido, increased suicidal thoughts/behaviors in children and young adults, and serotonin syndrome. Cymbalta 30 mg daily PCP prescribes COVID vaccine 04/24/[address] car since 05/03 2. Generalized anxiety disorder - Alprazolam 0.5 mg - at night and 1/2 in day and take other 1/2 when need it in day, no refill while on pain medications Buspar 10 mg am and lunch GDR hx schedule therapy [place] Discussed and educated pt regarding benzodiazepines are generally not intended for prolonged use and that use can cause tolerance, dependence, depression, and associated memory issues including dementias (this list is not exhaustive). Benzodiazepine use is generally not recommended concurrently with pain medications and/or other controlled substances due to increased risks of profound sedation, respiratory depression, coma, and even . They are not to be used with any alcohol, as this combination can also be lethal. Patient was provided caution 3. Primary insomnia -Melatonin 3 mg OTC 4. Chronic post-traumatic stress disorder -therapy 5. Long-term drug therapy LABS with PCP and iron 10/17/2024 Generalized anxiety disorder (ICD-10 - F41.1) 01/21/2025 Primary insomnia (ICD-10 - F51.01) Insomnia: Care Instructions material was published, Learning About Sleeping Well material was published 1. major depression - educated on all medications, benefits, side effects and risk, and educated on depression, anxiety, and mood d/o and educated on compliance of medications, appointment's, continue therapy discussion with patient about course of treatment and patient instructions. SSRI side effects discussed including but not limited to, gastric upset, nausea, vomiting, diarrhea and/or constipation, weight changes, sexual side effects including loss of libido, increased suicidal thoughts/behaviors in children and young adults, and serotonin syndrome. Cymbalta 30 mg daily PCP prescribes COVID vaccine 04/24/[address] car since 05/03 2. Generalized anxiety disorder - patient would like to increase Buspar and stop Alprazolam 0.5 mg - at night and 1/2 in day and take other 1/2 when need it in day,- reported taking 1/2 tab daily related to surgery planned 02/22/25 shoulder and will be on pain rx no refill while on pain medications increase Buspar 15 mg am and lunch GDR hx schedule therapy [place] Discussed and educated pt regarding benzodiazepines are generally not intended for prolonged use and that use can cause tolerance, dependence, depression, and associated memory issues including dementias (this list is not exhaustive). Benzodiazepine use is generally not recommended concurrently with pain medications and/or other controlled substances due to increased risks of profound sedation, respiratory depression, coma, and even . They are not to be used with any alcohol, as this combination can also be lethal. Patient was provided caution 3. Primary insomnia -Melatonin 3 mg OTC 4. Chronic post-traumatic stress disorder -therapy 5. Long-term drug therapy LABS with PCP and iron 01/21/2025 Other shelter (current) drug therapy (ICD-10 - Z79.899) Medication Refill: Care Instructions material was published 1. major depression - educated on all medications, benefits, side effects and risk, and educated on depression, anxiety, and mood d/o and educated on compliance of medications, appointment's, continue therapy discussion with patient about course of treatment and patient instructions. SSRI side effects discussed including but not limited to, gastric upset, nausea, vomiting, diarrhea and/or constipation, weight changes, sexual side effects including loss of libido, increased suicidal thoughts/behaviors in children and young adults, and serotonin syndrome. Cymbalta 30 mg daily PCP prescribes COVID vaccine 04/24/[address] car since 05/03 2. Generalized anxiety disorder - patient would like to increase Buspar and stop Alprazolam 0.5 mg - at night and 1/2 in day and take other 1/2 when need it in day,- reported taking 1/2 tab daily related to surgery planned 02/22/25 shoulder and will be on pain rx no refill while on pain medications increase Buspar 15 mg am and lunch GDR hx schedule therapy [place] Discussed and educated pt regarding benzodiazepines are generally not intended for prolonged use and that use can cause tolerance, dependence, depression, and associated memory issues including dementias (this list is not exhaustive). Benzodiazepine use is generally not recommended concurrently with pain medications and/or other controlled substances due to increased risks of profound sedation, respiratory depression, coma, and even . They are not to be used with any alcohol, as this combination can also be lethal. Patient was provided caution 3. Primary insomnia -Melatonin 3 mg OTC 4. Chronic post-traumatic stress disorder -therapy 5. Long-term drug therapy LABS with PCP and iron 10/22/2024 Primary insomnia (ICD-10 - F51.01) Insomnia: Care Instructions material was published, Learning About Sleeping Well material was published 1. major depression - educated on all medications, benefits, side effects and risk, and educated on depression, anxiety, and mood d/o and educated on compliance of medications, appointment's, continue therapy discussion with patient about course of treatment and patient instructions. SSRI side effects discussed including but not limited to, gastric upset, nausea, vomiting, diarrhea and/or constipation, weight changes, sexual side effects including loss of libido, increased suicidal thoughts/behaviors in children and young adults, and serotonin syndrome. Cymbalta 30 mg daily PCP prescribes COVID vaccine 04/24/24 has not drove car since 05/03 2. Generalized anxiety disorder - Alprazolam 0.5 mg - at night and 1/2 in day and take other 1/2 when need it in day, no refill while on pain medications Buspar 10 mg am and lunch GDR hx schedule therapy [place] Discussed and educated pt regarding benzodiazepines are generally not intended for prolonged use and that use can cause tolerance, dependence, depression, and associated memory issues including dementias (this list is not exhaustive). Benzodiazepine use is generally not recommended concurrently with pain medications and/or other controlled substances due to increased risks of profound sedation, respiratory depression, coma, and even . They are not to be used with any alcohol, as this combination can also be lethal. Patient was provided caution 3. Primary insomnia -Melatonin 3 mg OTC 4. Chronic post-traumatic stress disorder -therapy 5. Long-term drug therapy LABS with PCP and iron 07/25/2024 Primary insomnia (ICD-10 - F51.01) Insomnia: Care Instructions material was published, Learning About Sleeping Well material was published 1. major depression - educated on all medications, benefits, side effects and risk, and educated on depression, anxiety, and mood d/o and educated on compliance of medications, appointment's, continue therapy discussion with patient about course of treatment and patient instructions. SSRI side effects discussed including but not limited to, gastric upset, nausea, vomiting, diarrhea and/or constipation, weight changes, sexual side effects including loss of libido, increased suicidal thoughts/behaviors in children and young adults, and serotonin syndrome. Cymbalta 30 mg daily PCP prescribes COVID vaccine 04/24/24 has not drove car since 05/03 2. Generalized anxiety disorder - Alprazolam 0.5 mg - at night and 1/2 in day and take other 1/2 when need it in day, no refill while on pain medications Buspar 10 mg am and lunch GDR hx schedule therapy [place] Discussed and educated pt regarding benzodiazepines are generally not intended for prolonged use and that use can cause tolerance, dependence, depression, and associated memory issues including dementias (this list is not exhaustive). Benzodiazepine use is generally not recommended concurrently with pain medications and/or other controlled substances due to increased risks of profound sedation, respiratory depression, coma, and even . They are not to be used with any alcohol, as this combination can also be lethal. Patient was provided caution 3. Primary insomnia -Melatonin 3 mg OTC 4. Chronic post-traumatic stress disorder -therapy 5. Long-term drug therapy LABS with PCP and iron 08/14/2024 Encounter for screening for depression (ICD-10 - Z13.31) 04/25/2024 Primary insomnia (ICD-10 - F51.01) Insomnia: Care Instructions material was published, Learning About Sleeping Well material was published 1. major depression - educated on all medications, benefits, side effects and risk, and educated on depression, anxiety, and mood d/o and educated on compliance of medications, appointment's, continue therapy discussion with patient about course of treatment and patient instructions. SSRI side effects discussed including but not limited to, gastric upset, nausea, vomiting, diarrhea and/or constipation, weight changes, sexual side effects including loss of libido, increased suicidal thoughts/behaviors in children and young adults, and serotonin syndrome. Cymbalta 30 mg daily PCP prescribes COVID vaccine 04/24/24 2. Generalized anxiety disorder - Alprazolam 0.5 mg - at night and 1/2 in day and take other 1/2 when need it in day, no refill while on pain medications Buspar 10 mg am and lunch GDR hx schedule therapy [place] Discussed and educated pt regarding benzodiazepines are generally not intended for prolonged use and that use can cause tolerance, dependence, depression, and associated memory issues including dementias (this list is not exhaustive). Benzodiazepine use is generally not recommended concurrently with pain medications and/or other controlled substances due to increased risks of profound sedation, respiratory depression, coma, and even . They are not to be used with any alcohol, as this combination can also be lethal. Patient was provided caution 3. Primary insomnia -Melatonin 3 mg OTC 4. Chronic post-traumatic stress disorder -therapy 5. 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 major depression - educated on all medications, benefits, side effects and risk, and educated on depression, anxiety, and mood d/o and educated on compliance of medications, appointment's, continue therapy discussion with patient about course of treatment and patient instructions. SSRI side effects discussed including but not limited to, gastric upset, nausea, vomiting, diarrhea and/or constipation, weight changes, sexual side effects including loss of libido, increased suicidal thoughts/behaviors in children and young adults, and serotonin syndrome. Cymbalta 30 mg daily PCP prescribes COVID vaccine 04/24/24 2. Generalized anxiety disorder - Alprazolam 0.5 mg - at night and 1/2 in day and take other 1/2 when need it in day, no refill while on pain medications Buspar 10 mg am and lunch GDR hx schedule therapy [place] Discussed and educated pt regarding benzodiazepines are generally not intended for prolonged use and that use can cause tolerance, dependence, depression, and associated memory issues including dementias (this list is not exhaustive). Benzodiazepine use is generally not recommended concurrently with pain medications and/or other controlled substances due to increased risks of profound sedation, respiratory depression, coma, and even . They are not to be used with any alcohol, as this combination can also be lethal. Patient was provided caution 3. Primary insomnia -Melatonin 3 mg OTC 4. Chronic post-traumatic stress disorder -therapy 5. Long-term drug therapy LABS scheduled with PCP and iron 07/25/2024 Other shelter (current) drug therapy (ICD-10 - Z79.899) Medication Refill: Care Instructions material was published 1. major depression - educated on all medications, benefits, side effects and risk, and educated on depression, anxiety, and mood d/o and educated on compliance of medications, appointment's, continue therapy discussion with patient about course of treatment and patient instructions. SSRI side effects discussed including but not limited to, gastric upset, nausea, vomiting, diarrhea and/or constipation, weight changes, sexual side effects including loss of libido, increased suicidal thoughts/behaviors in children and young adults, and serotonin syndrome. Cymbalta 30 mg daily PCP prescribes COVID vaccine 04/24/[address] has not [address] car since 05/03 2. Generalized anxiety disorder - Alprazolam 0.5 mg - at night and 1/2 in day and take other 1/2 when need it in day, no refill while on pain medications Buspar 10 mg am and lunch GDR hx schedule therapy [place] Discussed and educated pt regarding benzodiazepines are generally not intended for prolonged use and that use can cause tolerance, dependence, depression, and associated memory issues including dementias (this list is not exhaustive). Benzodiazepine use is generally not recommended concurrently with pain medications and/or other controlled substances due to increased risks of profound sedation, respiratory depression, coma, and even . They are not to be used with any alcohol, as this combination can also be lethal. Patient was provided caution 3. Primary insomnia -Melatonin 3 mg OTC 4. Chronic post-traumatic stress disorder -therapy 5. 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 major depression - educated on all medications, benefits, side effects and risk, and educated on depression, anxiety, and mood d/o and educated on compliance of medications, appointment's, continue therapy discussion with patient about course of treatment and patient instructions. SSRI side effects discussed including but not limited to, gastric upset, nausea, vomiting, diarrhea and/or constipation, weight changes, sexual side effects including loss of libido, increased suicidal thoughts/behaviors in children and young adults, and serotonin syndrome. Cymbalta 30 mg daily PCP prescribes COVID vaccine 04/24/[address] car since 05/03 2. Generalized anxiety disorder - Alprazolam 0.5 mg - at night and 1/2 in day and take other 1/2 when need it in day, no refill while on pain medications Buspar 10 mg am and lunch GDR hx schedule therapy [place] Discussed and educated pt regarding benzodiazepines are generally not intended for prolonged use and that use can cause tolerance, dependence, depression, and associated memory issues including dementias (this list is not exhaustive). Benzodiazepine use is generally not recommended concurrently with pain medications and/or other controlled substances due to increased risks of profound sedation, respiratory depression, coma, and even . They are not to be used with any alcohol, as this combination can also be lethal. Patient was provided caution 3. Primary insomnia -Melatonin 3 mg OTC 4. Chronic post-traumatic stress disorder -therapy 5. Long-term drug therapy LABS with PCP and iron 10/22/2024 Encounter for screening for depression (ICD-10 - Z13.31) 1. major depression - educated on all medications, benefits, side effects and risk, and educated on depression, anxiety, and mood d/o and educated on compliance of medications, appointment's, continue therapy discussion with patient about course of treatment and patient instructions. SSRI side effects discussed including but not limited to, gastric upset, nausea, vomiting, diarrhea and/or constipation, weight changes, sexual side effects including loss of libido, increased suicidal thoughts/behaviors in children and young adults, and serotonin syndrome. Cymbalta 30 mg daily PCP prescribes COVID vaccine 04/24/[address] car since 05/03 2. Generalized anxiety disorder - Alprazolam 0.5 mg - at night and 1/2 in day and take other 1/2 when need it in day, no refill while on pain medications Buspar 10 mg am and lunch GDR hx schedule therapy [place] Discussed and educated pt regarding benzodiazepines are generally not intended for prolonged use and that use can cause tolerance, dependence, depression, and associated memory issues including dementias (this list is not exhaustive). Benzodiazepine use is generally not recommended concurrently with pain medications and/or other controlled substances due to increased risks of profound sedation, respiratory depression, coma, and even . They are not to be used with any alcohol, as this combination can also be lethal. Patient was provided caution 3. Primary insomnia -Melatonin 3 mg OTC 4. Chronic post-traumatic stress disorder -therapy 5. Long-term drug therapy LABS with PCP and camilla 07/25/2024 Encounter for screening for depression (ICD-10 - Z13.31) 1. major depression - educated on all medications, benefits, side effects and risk, and educated on depression, anxiety, and mood d/o and educated on compliance of medications, appointment's, continue therapy discussion with patient about course of treatment and patient instructions. SSRI side effects discussed including but not limited to, gastric upset, nausea, vomiting, diarrhea and/or constipation, weight changes, sexual side effects including loss of libido, increased suicidal thoughts/behaviors in children and young adults, and serotonin syndrome. Cymbalta 30 mg daily PCP prescribes COVID vaccine 04/24/24 has not [address] car since 05/03 2. Generalized anxiety disorder - Alprazolam 0.5 mg - at night and 1/2 in day and take other 1/2 when need it in day, no refill while on pain medications Buspar 10 mg am and lunch GDR hx schedule therapy [place] Discussed and educated pt regarding benzodiazepines are generally not intended for prolonged use and that use can cause tolerance, dependence, depression, and associated memory issues including dementias (this list is not exhaustive). Benzodiazepine use is generally not recommended concurrently with pain medications and/or other controlled substances due to increased risks of profound sedation, respiratory depression, coma, and even . They are not to be used with any alcohol, as this combination can also be lethal. Patient was provided caution 3. Primary insomnia -Melatonin 3 mg OTC 4. Chronic post-traumatic stress disorder -therapy 5. Long-term drug therapy LABS with PCP and camilla Plan Of Treatment Next Appt Details Provider Name:Mica Yanes , 04/22/2025 09:45:00 AM, [address], [address], [place], [address], Insurance Providers Payer Name Payer Address Payer Phone Subscriber Number Group Number Insured Name Patient Relationship to Insured Coverage Start Date Coverage End Date [employer] Medicare Replacemen t/Advantag e - Ppo [address] [address] [place]ELSI NMANAS [phone] [id number] SEDRICK KITCHNE Self - patient is the insured Janett Rowland - Ffs-DNU [address] [address] [place] [address] [id number] SEDRICK KITCHEN Self - patient is the insured Medical (General) History Medical History History ICD Code Problems: Acute COVID-19 Chronic pain Chronic post-traumatic stress disorder Generalized anxiety disorder Long-term drug therapy Mild recurrent major depression Primary insomnia Recurrent falls , Surgical History Surgery Date(Month/Year) Tonsilectomy/adenoids 04/10/1958 Appendectomy (71292) 04/10/1974 Removal of gallbladder (91407) 5 Hysterectomy (92371) 04/10/1981 Cataract surgery (10988) 04/10/2019
--- OUTSIDE RECORDS SUMMARY | 2025-04-01 13:01 | XMS_ITS | Clinical Summary ---
Author Organization 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 Active melatonin 10 mg cap Take by mouth. Activ e montelukast (SINGULAIR) 10 mg tablet Take 10 mg by mouth nightly. Active multivitamin (THERAGRAN) tab Take 1 tablet by mouth daily. Active pen needle, diabetic (NOVOFINE 32 MISC) by miscellaneous route. Active pantoprazole (PROTONIX) 40 MG tablet Take 40 mg by mouth daily. Active semaglutide 2 mg/dose (8 mg/3 mL) pnij Inject subcutaneously. Active simvastatin (ZOCOR) 20 MG tablet Take 20 mg by mouth nightly. Active TiZANidine (ZANAFLEX) 2 MG capsule Take 2 mg by mouth 3 (three) times a day. Active topiramate (TOPAMAX) 25 MG tablet Take 25 mg by mouth 2 (two) times a day. Active warfarin (COUMADIN) 4 MG tablet Take 4 mg by mouth daily. Active Active Problems Problem Noted Date Diagnosed Date Deep postoperative wound infection 10/05/2021 Social History Tobacco Use Types Packs/Day Years Used Date Smoking Tobacco: Never Assessed Comments Unknown Sex and Gender Information Value Date Recorded Sex Assigned at Not on file Legal Sex Female 3:03 PM EDT Gender Identity Not on file Sexual Orientation Not on file Last Filed Vital Signs Vital Sign Reading Time Taken Comments Blood Pressure - - Pulse - - Temperature - - Respiratory Rate - - Oxygen Saturation - - Inhaled Oxygen Concentration - - Weight 83.5 kg (184 lb) 10/04/2021 4:58 PM PDT Height 165.1 cm (5' 5) 10/04/2021 4:58 PM PDT Body Mass Index 30.62 10/04/2021 4:58 PM PDT Plan of Treatment Not on file Medical Devices Not on file Insurance - MEDICARE
--- OUTSIDE RECORDS SUMMARY | 2025-04-01 13:01 | XMS_ITS | Clinical Summary ---
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 Active ondansetron (ZOFRAN-ODT) 4 MG TABLET DISPERSIBLE Take 4 mg by mouth every 8 hours as needed for Nausea - 1st line. Active oxyCODONE-Aceta minophen (PERCOCET) 10-325 MG Tablet Take 1 Tab by mouth every 4 hours as needed for Severe pain. Active pantoprazole (PROTONIX) 40 MG Pack Take 40 mg by mouth daily. Active propranolol (INDERAL) 80 MG Tablet Take 80 mg by mouth 2 times daily. Active Sennosides-Docu sate Sodium (SENNA-DOCUSATE SODIUM) 8.6-50 MG Tablet Take 1 Tab by mouth daily. Active simvastatin (ZOCOR) 20 MG Tablet Take 20 mg by mouth daily. Active traMADol (ULTRAM) 50 MG Tablet Take 50 mg by mouth every 6 hours as needed for Moderate or more severe pain. Active Cholecalciferol (VITAMIN D3) 400 units Capsule Take 2 Caps by mouth daily. Active warfarin (COUMADIN) 3 MG Tablet Take 3 mg by mouth daily. Active buPROPion SR (WELLBUTRIN SR) 150 MG TABLET SR 12 HR Take 150 mg by mouth daily. Active ALPRAZolam (XANAX) 0.5 MG Tablet Take 0.5 mg by mouth 2 times daily as needed for Anxiety. Active amLODIPine (NORVASC) 10 MG Tablet Take 10 mg by mouth daily. Active Ascorbic Acid 500 MG Chewable Tablet Take 1 Tab by mouth 2 times daily. Active busPIRone (BUSPAR) 10 MG Tablet Take 5 mg by mouth 3 times daily. Active butalbital-aspi rin-caffeine (FIORINAL) 50-325-40 MG Capsule Take 1 Cap by mouth every 4 hours as needed (tension headache). Active cyclobenzaprine (FLEXERIL) 10 MG Tablet Take 10 mg by mouth 3 times daily as needed for Muscle spasms. Active DULoxetine (CYMBALTA) [address] Particles Take 30 mg by mouth daily. Active DULoxetine (CYMBALTA) [address] Particles Take 60 mg by mouth daily. Active escitalopram (LEXAPRO) 20 MG Tablet Take 20 mg by mouth daily. Active levothyroxine (SYNTHROID) 88 MCG Tablet Take 88 mcg by mouth daily. Active losartan (COZAAR) 100 MG Tablet Take 100 mg by mouth daily. Active albuterol 108 (90 Base) MCG/ACT Aerosol Solution take 2 Puffs by inhalation every 4 hours as needed for Wheezing. Active ibuprofen (MOTRIN) 600 MG Tablet Take 600 mg by mouth every 8 hours. Active aspirin EC 81 MG Tablet Delayed Response Take 81 mg by mouth daily. Active insulin lispro (HUMALOG) 100 UNIT/ML Solution by Subcutaneous route 3 times daily (after meals). Use as directed Active MetFORMIN HCl 1000 MG (MOD) TABLET SR 24 HR Take by mouth. This RX is for Metformin SR. Active gabapentin (NEURONTIN) 800 MG Tablet Take 300 mg by mouth 3 times daily. Active divalproex (DEPAKOTE) 500 MG Tablet Delayed Response Take 500 mg by mouth 3 times daily. Active budesonide-form oterol fumarate (SYMBICORT) 160-4.5 MCG/ACT Aerosol take 2 Puffs by inhalation 2 times daily. Active QUEtiapine (SEROQUEL) 200 MG Tablet Take 200 mg by mouth 2 times daily. Active Topiramate ER 200 MG Capsule ER 24 Hour Sprinkle Take by mouth. Activ e potassium chloride SA (KLORCON M) 20 MEQ Tablet Controlled Release Take 20 mEq by mouth daily. Active Multiple Vitamins-Minera ls (MULTIVITAMIN PO) Take by mouth. Activ e atorvastatin (LIPITOR) 40 MG Tablet Take 40 mg by mouth daily. Active QUEtiapine (SEROQUEL) 100 MG Tablet Take 100 mg by mouth 2 times daily. Active Ranolazine (RANEXA) 1000 MG TABLET SR 12 HR Take 1,000 mg by mouth 2 times daily. Active tiZANidine (ZANAFLEX) 2 MG Capsule Take 2 mg by mouth 3 times daily. Active butalbital-acet aminophen-caffe ine-codeine (FIORICET/CODEI NE) 06-509-13-30 MG Capsule Take 1 Cap by mouth every 4 hours as needed. Active Social History Tobacco Use Types Packs/Day Years Used Date Smoking Tobacco: Never Smokeless Tobacco: Never Alcohol Use Standard Drinks/Week Comments No 0 (1 standard drink = 0.6 oz pur e alcohol) Comments Unknown Sex and Gender Information Value Date Recorded Sex Assigned at Not on file Legal Sex Female 12:07 PM CDT Gender Identity Not on file Sexual Orientation Not on file Last Filed Vital Signs Vital Sign Reading Time Taken Comments Blood Pressure 125/65 01/26/2022 6:17 AM CDT Pulse 50 01/26/2022 6:00 AM CDT Temperature 35.4 C (95.7 F) 01/26/2022 4:34 AM CDT Respiratory Rate 18 01/26/2022 4:34 AM CDT Oxygen Saturation 100% 01/26/2022 6:00 AM CDT Inhaled Oxygen Concentration - - Weight 86.2 kg (190 lb) 01/26/2022 4:34 AM CDT Height 165.1 cm (5' 5) 01/26/2022 4:34 AM CDT Body Mass Index 31.62 01/26/2022 4:34 AM CDT Plan of Treatment Health Maintenance Due Date Last Done Comments Hepatitis C Virus (HCV) Screening 1950 Zoster Immunization (2 of 3) 08/24/2015 06/29/2015 Medicare Initial AWV [id number] 04/10/2018 Respiratory Syncytial Virus (RSV) Immunization (Adult) (1 - 1-dose 75+ series) 2024 Influenza Immunization (#1) 12/09/202412/09, 12/22/2020, 12/11/2019, Additional history exists SARS-COV-2 Immunization ( season) 2024 01/06/2022, 08/04/2021, 02/01/2021, Additional history exists Pneumococcal Immunization (50+ years) Completed 09/18/2018, 05/03/2017, 04/10/2016, Additional history exists Pneumococcal Immunization Combined Discontinued 09/18/2018, 05/03/2017, 04/10/2016, Additional history exists DTaP/Tdap/Td Immunization Discontinued 04/18/2019 TdaP Immunization Completed 04/18/2019 Hepatitis B Immunization Aged Out No longer eligible based on patient's age to complete this topic Human Papillomavirus (HPV) Immunization (No Doses Required) Completed Meningococcal Immunization (ACWY) Aged Out No longer eligible based on patient's age to complete this topic Rotavirus Immunization Aged Out No lo nger eligible based on patient's age to complete this topic Insurance MEDICARE C [employer]NA [facility] Advance Directives Documents on File Type Date Recorded Patient Manager Division Expl anation Advance Care Planning Discussion 10/26/2017 8:54 AM ACP Discussion Recor d 10/20/17 Advance Care Planning Discussion 10/10/2017 2:29 PM POA-HC 12/22/2016 Living Will 10/10/2017 2:26 PM LIVING WILL 12/22/2016 * Full Code (Latest Code Status on File) Date Activated Date Inactivated Comments 10/23/2017 9:03 AM 12/16/2019 1:56 PM Care Teams 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
--- OUTSIDE RECORDS SUMMARY | 2025-04-01 13:01 | XMS_ITS | Clinical Summary ---
Author Organization [facility] Address [address] [place] [address] Care Team Providers Care Surveyor Geophysical Prospecting Name Role Phone Morris Casas MD Primary Care Provider [phone] Source Comments [facility],non-owned Affiliates and Associated Physician Practices is amultiple site organization consisting of ambulatory clinics and hospital sitesin [place], [place], [place] and [place]. This disclosure is being madepursuant to the Care Everywhere program and may not contain all information available regarding this patient. Last updated 17.[facility] Allergies Active Allergy Reactions Criticality Noted Date Comments Corticosteroids Other Medium 12/05/2018 Aggression Hydromorphone Itching,Headache High 12/05/2018 aggressive Morphine Nausea and/or Vomiting Low 12/05/2018 Sulfacetamide Rash Medium 02/02/2022 Sulfur Rash High 12/05/2018 Medications * Be aware that medications may not be up to date on this document. Alwaysverify current medications with the patient. losartan (COZAAR) 100 MG tablet Take 1 (one) tablet by mouth once daily Active simvastatin (ZOCOR) 20 MG tablet Take 1 (one) tablet by mouth at bedtime Active pantoprazole (PROTONIX) 40 MG packet Take 1 (one) packet by mouth 2 times daily Active montelukast (SINGULAIR) 10 MG tablet Take 1 (one) tablet by mouth at bedtime Active butalbital-brennen taminophen-caf feine (FIORICET) 50-325-40 MG tablet Take 1 (one) tablet by mouth every 4 hours as needed Active busPIRone (BUSPAR) 15 MG tablet Take 1 (one) tablet by mouth 3 times daily Active ALPRAZolam (XANAX) 0.5 MG tablet Take 1 (one) tablet by mouth 3 times daily as needed Active tiZANidine (ZANAFLEX) 2 MG capsule Take 1 (one) capsule by mouth every 8 hours as needed Active amLODIPine (NORVASC) 10 MG tablet Take one tablet by mouth daily 9 Active gabapentin (NEURONTIN) 400 MG capsule Take 1 capsule by mouth 3 times daily 90 capsule 5 9 Active Additional Information Patient taking differently:400 mg Oral4 TIMES DAILY, Reported on 02/02/2022 ascorbic acid (VITAMIN C) 500 MG tablet Take 1 (one) tablet by mouth once daily Active calcium carbonate-ofelia min D 600-400 MG-UNIT tablet Take 1 (one) tablet by mouth 3 times daily with meals Active levothyroxine (SYNTHROID) 100 MCG tablet Take 1 (one) tablet by mouth daily before breakfast 1 Active semaglutide (OZEMPIC) 2 MG/1.5ML pen Inject 1 (one) mg subcutaneously 1mg per daughter 1 Active topiramate (TOPAMAX SPRINKLE) 25 MG capsule Take 2 (two) capsules by mouth 2 times daily 1 Active warfarin (COUMADIN) 4 MG tablet Take 1 (one) tablet by mouth once daily 1 Active DULoxetine (CYMBALTA) 30 MG capsule 1 (one) capsule 2 times daily 1 Active melatonin 10 MG capsule Take 1 (one) capsule by mouth at bedtime Active albuterol HFA (PROVENTIL; VENTOLIN; PROAIR) 108 (90 Base) MCG/ACT inhaler Inhale 2 (two) puffs by mouth every 6 hours as needed Active enoxaparin (LOVENOX) 80 MG/0.8ML injection Inject 80 (eighty) mg subcutaneously once daily Active cyclobenzaprin e (FLEXERIL) 10 MG tablet Take 1 (one) tablet by mouth 3 times daily as needed 2 Active Additional Information Patient not taking.Reported on 08/17/2022 Polyethylene Glycol 3350 (PEG 3350) 17 g 2 Active FUROSEMIDE PO Take 40 mg by mouth as needed Active B Complex Vitamins CAPS Take 1 capsule by mouth once daily Active Calcium-Vitami n D-Vitamin K 500-1000-40 MG-UNT-MCG Active propranolol (Inderal) 20 MG tablet Take 1 (one) tablet by mouth 2 times daily 2 Active Mounjaro 5 MG/0.5ML injection Inject 5 (five) mg subcutaneously every 7 days 3 Active Active Problems Problem Noted Date Diagnosed Date Abnormal EKG 07/26/2022 06/02/2023 Atrophy of liver 04/26/2022 06/02/2023 Chronic constipation 04/26/2022 06/02/2023 Dilation of biliary tract 04/26/20222023 Globus sensation 04/26/2022 06/02/2023 Antibiotic long-term use 04/26/2022 024 Tremor, essential 02/17/2022 06/02/2023 Oropharyngeal dysphagia 02/07/2022 06/02/19 24 Overview (06/02/2023): Last Assessment & Plan: Agree with starting physical therapy tomorrow Continue Protonix and Famotidine twice daily Modified barium swallow Centralized Scheduling: 64 ounces of caffeine free and soda free fluid daily Deep postoperative wound infection 10/05/2021 Primary osteoarthritis of both knees 04/26/2021 Overview (06/30/2021): Last Assessment & Plan: Patient total knees appear to be doing okay. There is no signs of wear or loosening. There is no evidence of septic joint. She has no instability the knees. She does have atrophy of the leg muscles would likely benefit from conditioning program. Physical therapy was prescribed. She also has fairly profound osteopenia and is likely to have osteoporosis. Encouraged her to attend her upcoming visit for her bone density study as she may need more than the calcium and vitamin-D she is currently taking. Contusion of left thumb 02/23/2021 De Quervain's syndrome (tenosynovitis) Overview (06/30/2021): Last Assessment & Plan: Clinically the patient has de Quervain tenosynovitis and may have strained the flexor tendons of the wrist as well. A wrist control splint was issued for better protection. She may find physical and/or occupational therapy beneficial. Traumatic incomplete tear of left rotator cuff 1 04/25/2020 Overview (06/30/2021): Last Assessment & Plan: Patient likely aggravated her left shoulder and has partial-thickness rotator cuff tear. She may benefit from physical therapy. Cervical spondylosis without myelopathy 07/03/19 Overview (06/30/2021): Last Assessment & Plan: Patient has undergone a previous extensive cervical fusion and with radiculopathy in the arm I would recommend she get in to see her disability benefits specialist. She is not myelopathic at this time Right calf pain 07/02/2020 Overview (06/30/2021): Last Assessment & Plan: Patient has noted some swelling and pain in her entire leg since her fall. Since she has had two prior deep vein thrombosis and does have or edema on the right than on the left I would recommend getting a Doppler ultrasound make sure there is no evidence of an acute deep vein thrombosis despite the fact she is anticoagulated she still could get one. Rotator cuff tendinitis, left 07/02/2020 Overview (06/30/2021): Last Assessment & Plan: Patient failed to get significant relief with physical therapy. It is possible she has tearing of the rotator cuff and further workup may be helpful. The patient however is facing upcoming back surgery and wants to wait until after she has recuperate before pursuing anything with her shoulder. She was offered cortisone today but declined she has not found it helpful for her in the past. History of total knee arthroplasty, bilateral Epigastric pain 01/17/2020 Overview (06/30/2021): Last Assessment & Plan: Pt says she had severe epigastric pain that occurred twice shortly after taking narcotic post spinal fusion surgery in August 2019. She is still having some soreness in this area with palpation. She said the last time she tried to take this medication that causes this pain was a few weeks ago. Will f/u at next appointment. If still present, we will plan to do imaging. Gastro-esophageal reflux disease without esophag itis 01/17/2020 Overview (06/30/2021): Added automatically from request for surgery [id number] Iron deficiency anemia, unspecified 12/25/2019 Overview (06/30/2021): Last Assessment & Plan: Pt referred by hematology due to findings of anemia. Her last colonoscopy was in 2015 and she is due for screening 05/2020; however, due to issues with anemia requiring iron infusions, will go ahead and schedule to rule out GI bleeding. Pt denies any overt signs of GI bleeding. We discussed having EGD as well. Pt had just had EGD in 2017 and was normal. Pt agreed until she found out she would need COVID test. She does not want to have COVID test done and just wants lower scope done. Last hgb done was 10.5. She had iron infusion done on Monday. Bradycardia by electrocardiogram 09/08/2019 Hypertension associated with diabetes 05/08/2019 Thromboembolism 05/08/2019 BMI 39.0-39.9,adult 04/18/2019 Overview (09/08/2019): Last Assessment & Plan: Reviewed need to lose weight, reviewed health benefits. Reviewed recommendations for daily intake & activity 20-30 minutes/day. Discussed healthy diet and importance of regular physical activity. Encounter for osteoporosis s creening in asymptomatic postmenopausal patient 04/18/2019 Overview (09/08/2019): Last Assessment & Plan: DEXA ordered. Will contact with results once received. Chronic anticoagulation 04/04/2019 Current use of pourer anticoagulation Overview (06/30/2021): Last Assessment & Plan: Pt currently on coumadin therapy due to multiple thromboembolic episodes. Cervicalgia 03/30/2019 Fall 03/30/2019 Neck pain 02/23/2019 S/P cervical spinal fusion 02/23/2019 Balance problems 02/23/2019 Disorder of refraction and accommodation Nuclear senile cataract 10/02/2018 Chronic bilateral low back pain without sciatica 09/18/2018 Overview (09/08/2019): Last Assessment & Plan: Encouraged otc tylenol/ibuprofen prn back pain. Sees Dr Mbary at [facility]. Discussed ice, gentle ROM, increased activity/core strengthening & other non pharm methods of pain relief. Denies bowel/bladder dysfunction. Denies cauda equina. Reviewed red flags. Has seen Dr Mabry in past few months at [facility] for injections. Very minimal improvement noted. Seen in pain mgmt office every 3 months (sees [facility]). Discussed at length needing neurosurg/neuro eval. Will call w/[facility] physician that she would like referral sent to (family member went to them). Chronic tension-type headache, not intractable 0 09/18/2018 Overview (09/08/2019): Last Assessment & Plan: Headaches are stable. Continue current treatment regimen. Advised to keep a headache diary. Counseled regarding lifestyle modifications. Discussed neck pain associated w/MEJÍA. Need to control neck pain to improve MEJÍA. Need for vaccination 09/18/2018 Overview (09/08/2019): Last Assessment & Plan: prevnar 13 vaccine given today. Discussed possible tenderness/redness at injection site. Last Assessment & Plan: Tdap vaccine given today. Discussed possible tenderness/redness at injection site. Cervicalgia 09/18/2018 Overview (09/08/2019): Last Assessment & Plan: Has seen Dr Mbary in past few months at [facility] for injections. Very minimal improvement noted. Seen in pain mgmt office every 3 months (sees Ana Vieira). Discussed at length needing neurosurg/neuro eval. Will call w/[facility] physician that she would like referral sent to (family member went to them). Encounter for immunization 09/18/2018 Overview (06/30/2021): Last Assessment & Plan: prevnar 13 vaccine given today. Discussed possible tenderness/redness at injection site. Last Assessment & Plan: Tdap vaccine given today. Discussed possible tenderness/redness at injection site. Cubital tunnel syndrome on right 08/20/2018 Trigger middle finger of right hand 08/20/2018 Ulnar neuropathy of right upper extremity 2018 Arthritis of right acromioclavicular joint 09/22 Overview (09/08/2019): Added automatically from request for surgery [id number] Tear of right rotator cuff 09/22/2017 Overview (09/08/2019): Added automatically from request for surgery [id number] Iron deficiency anemia danikaon javi to inadequate dietary iron intake 06/16/2017 Iron deficiency anemia venus javi to inadequate dietary iron intake 06/16/2017 Overview (06/30/2021): Last Assessment & Plan: -Likely due to past history of gastric bypass and pt says she is unable to eat red meat. -Will get guaiac stool testing. If this is positive, we will schedule small bowel capsule endoscopy. If negative, no need for further GI workup at this time. Carpal tunnel syndrome on right 02/19/2017 Clotting disorder 10/31/2016 Overview (09/08/2019): Last Assessment & Plan: She does not know the name of the specific disorder. She tells me her Mom had it as well. She thinks she can find it in paperwork at home. I cannot find reference to it in [employer] or [employer]. She has a hx of PE and DVT's. She is currently on coumadin. I would like to refer her to Hematology so she can discuss the risks and benefits of changing to 1 of the newer medications such as Xarelto or Eliquis. Closed vertical fracture of patella 09/22/2015 Overview (09/08/2019): Closed nondisplaced longitudinal fracture of right patella, initial encounter Anxiety disorder 06/29/2015 Overview (09/08/2019): Anxiety disorder Asthma 06/29/2015 Overview (09/08/2019): Asthma Benign essential hypertension 06/29/2015 Overview (09/08/2019): Benign essential hypertension Last Assessment & Plan: Hypertension is unchanged. Continue current treatment regimen. Regular aerobic exercise. Continue current medications. Blood pressure will be reassessed at the next regular appointment. Chronic migraine without aur a without status migrainosus, not intractable 06/29/2015 Overview (09/08/2019): Migraine Last Assessment & Plan: Had head CT and c-spine CT in [place] in March. These results were reviewed and were negative. Continue fioricet per pain management. Depression 06/29/2015 Overview (09/08/2019): Depressive disorder Last Assessment & Plan: She sees Dr. Gutiérrez and has a counselor there in [place] as well. They are discussing stopping the cymbalta and trying something else. I think stress and not sleeping are likely the cause of her fatigue. Gastroesophageal reflux disease 06/29/2015 Overview (09/08/2019): Gastroesophageal reflux disease History of deep venous thrombosis 06/29/2015 Overview (09/08/2019): Hx of deep venous thrombosis History of pulmonary embolus (PE) 06/29/2015 Overview (09/08/2019): Hx pulmonary embolism Hyperlipidemia 06/29/2015 Overview (09/08/2019): Hyperlipidemia Last Assessment & Plan: Lipid abnormalities are improving with treatment. Pharmacotherapy as ordered. Lipids will be reassessed in 6 months. Hypothyroidism 06/29/2015 Overview (09/08/2019): Hypothyroidism Last Assessment & Plan: Due for repeat TSH. Continue levothyroxine 88mcg Type 2 diabetes mellitus 06/29/2015 Overview (09/08/2019): Type 2 diabetes mellitus Last Assessment & Plan: Has been stable without oral medications. Recheck hga1c and microalbumin. F/u 6 months and as needed Episodic mood disorder 06/29/2015 Overview (06/30/2021): Depressive disorder Last Assessment & Plan: She sees Dr. Gutiérrez and has a counselor there in [place] as well. They are discussing stopping the cymbalta and trying something else. I think stress and not sleeping are likely the cause of her fatigue. Fibromyalgia 04/10/2011 Overview (09/08/2019): Fibromyalgia Spinal stenosis of lumbar region S/P spinal fusion Radiculopathy Post-operative pain Anxiety and depression Acute postoperative pulmonary insufficiency Oliguria Acute blood loss as cause of postoperative anemi a Neurogenic claudication Immunizations Immunization Administration Dates Next Due INFLUENZA VACCINE, TRIV. (AF LURIA, FLUZONE TRIVALENT; 6MO+) (IIV3) 01/31/2014 Covid Ubiq Mobile primary monoval ent 12+ yr 0.3mL Purple cap 08/05/2021 FLU VACCINE QUAD IIV4 SPLIT 0.25 ML IM 12/09/2017,01/21/2015 FLU VACCINE TRI IIV3 SPLIT P F IM (FLUVIRIN) 12/11/2019 INFLUENZA VACCINE 12/22/2020,12/11/2019,12/24/19 19 INFLUENZA VACCINE, ADJUVANTE D, QUADR. (FLUAD QUADRIVALENT; 65Y+) (AIIV4) 12/11/2019 INFLUENZA VACCINE, HIGH-DOSE , QUADR. (FLUZONE HIGH-DOSE QUADRIVALENT; 65Y+), 0.7 ML (HD-IIV4) 12/20/2018,01/18/2018,01/31/2017,2015 PNEUMOCOCCAL PCV VACCINE 04/10/2014 PNEUMOCOCCAL PPSV23 05/03/2017,04/10/2016,2010 Pneumococcal Pcv13 Conj 09/18/2018 TDAP (7yrs+) 04/18/2019 ZOSTER VACCINE, LIVE 06/29/2015 Family History Medical History Relation Name Comments Cirrhosis Father CVA Mother Relation Name Status Comments Father Mother Social History Tobacco Use Types Packs/Day Years Used Date Smoking Tobacco: Never Smokeless Tobacco: Never Tobacco Cessation:Counseling Given: No Alcohol Use Standard Drinks/Week Comments Not Currently 0 (1 standard drink = 0.6 oz pur e alcohol) AUDIT-C Answer Date Recorded Q1: How often do you have a drink containing alcohol? Never 08/21/2021 Q2: How many drinks containi ng alcohol do you have on a typical day when you are drinking? Patient does not drink Q3: How often do you have si x or more drinks on one occasion? Never 08/21/2021 PHQ-2 Answer Date Recorded PHQ2 TOTAL SCORE 0 10/21/2021 Comments No Sex and Gender Information Value Date Recorded Sex Assigned at Not on file Legal Sex Female 9:50 AM CDT Gender Identity Not on file Sexual Orientation Not on file Last Filed Vital Signs Vital Sign Reading Time Taken Comments Blood Pressure 147/77 06/07/2023 10:59 AM MANIPULATOR OPERATOR Pulse 59 06/07/2023 10:59 AM MANIPULATOR OPERATOR Temperature 36.6 C (97.9 F) 06/07/2023 10:59 AM MANIPULATOR OPERATOR Respiratory Rate 18 06/07/2023 10:59 AM MANIPULATOR OPERATOR Oxygen Saturation 100% 06/07/2023 10:59 AM MANIPULATOR OPERATOR Inhaled Oxygen Concentration 50% 08/21/2021 6 :00 AM CDT Weight 72.1 kg (159 lb) 06/07/2023 10:59 AM MANIPULATOR OPERATOR Height 165.1 cm (5' 5) 06/07/2023 10:59 AM MANIPULATOR OPERATOR Body Mass Index 26.46 06/07/2023 10:59 AM MANIPULATOR OPERATOR Plan of Treatment Health Maintenance Due Date Last Done Comments ZOSTER VACCINE (2 of 3) 08/24/2015 06/29/2015 DIABETES RETINOPATHY SCREENING 09/08/2019 DIABETES-FOOT EXAM WITH MONOFILAMENT 09/08/2019 DIABETES-HGB A1C 02/21/2022 08/21/2021 DIABETES-SERUM CREATININE 10/19/20222021, 09/15/2021, 09/14/2021, Additional history exists Respiratory Syncytial Virus (RSV) Vaccine Pt: or over 60 yrs (1 - 1-dose 75+ series) 2024 DEPRESSION SCREENING 04/10/2024 02/02/2022, 12/30/2021, 10/27/2021, Additional history exists DIABETES - URINE PROTEIN SCREENING 04/10/2024 MEDICARE AWV CALENDAR YEAR 2024 COVID-19 VACCINE ( season) 2024 01/06/2022, 08/05/2021, 02/01/2021, Additional history exists INFLUENZA VACCINE (#1) 2024 3, 12/22/2020, 12/11/2019, Additional history exists DTAP/TDAP/TD VACCINES (2 - Td or Tdap) 04/18/2029 04/18/2019 PNEUMOCOCCAL VACCINE 50+ Completed 019, 05/03/2017, 04/10/2016, Additional history exists HEPATITIS C SCREENING Completed 03/30/2019 BONE DENSITY TESTING Completed 07/02/2021, 05/08/2019, 07/14/2015 HEPATITIS B VACCINE Aged Out No longe r eligible based on patient's age to complete this topic HIB VACCINE Aged Out No longer eligi ble based on patient's age to complete this topic HPV VACCINE Aged Out No longer eligi ble based on patient's age to complete this topic MENINGOCOCCAL (Group B) VACCINE SHARED DECISION-MAKING Aged Out No longer eligible based on patient's age to complete this topic MENINGOCOCCAL GROUPS A/C/Y/W VACCINE Aged Out No longer eligible based on patient's age to complete this topic Medical Devices Implanted Type Area Hot Dipper Device Identifier Shelf Expiration Date Model / Serial / Lot Graft Bone Grftn Dbm 10ml Ptty Jr - [id number] Implanted:Qty: 1 on 08/22/2019 by Clifford Grimes MD at [facility] N/A: Spine [employer] Inc 09/30/2021 [id number] / [id number] / Bentley Spnl 240mm 3.5mm Chromaloy + Implanted:Qty: 1 on 08/22/2019 by Clifford Grimes MD at [facility] N/A: Spine Medtronic Sofamor Danek Inc [id number] / / Screw Set Std Spne Implanted:Qty: 14 on 08/22/2019 by Clifford Grimes MD at [facility] N/A: Spine Medtronic Sofamor [employer]anek Inc [id number] / / Screw 4mm 24mm Ma Spne Bone Implanted:Qty: 2 on 08/22/2019 by Clifford Grimes MD at [facility] N/A: Spine Medtronic Sofamor [employer]anek Inc [id number] / / Screw 3.5mm 20mm Ma Spne Bone Implanted:Qty: 2 on 08/22/2019 by Clifford Grimes MD at [facility] N/A: Spine Medtronic Sofamor Danek Inc [id number] / / Screw 4.5mm 26mm Ma Spne Bone Implanted:Qty: 2 on 08/22/2019 by Clifford Grimes MD at [facility] N/A: Spine Medtronic Sofamor Danek Spine [id number] / / Screw 4.5mm 28mm Ma Spne Bone Implanted:Qty: 2 on 08/22/2019 by Clifford Grimes MD at [facility] N/A: Spine Medtronic Sofamor Danek Spine [id number] / / Screw 3.5mm 16mm Ma Spne Bone Implanted:Qty: 3 on 08/22/2019 by Clifford Grimes MD at [facility] N/A: Spine Medtronic Sofamor [employer]ane[employer] [id number] / / Screw 3.5mm 14mm Ma Spne Bone Implanted:Qty: 1 on 08/22/2019 by Clifford Grimes MD at [facility] N/A: Spine Medtronic Sofamor [employer]ane[employer] [id number] / / Screw 3.5mm 18mm Ma Spne Bone Implanted:Qty: 2 on 08/22/2019 by Clifford Grimes MD at [facility] N/A: Spine Medtronic Sofamor [employer]ane[employer] Inc [id number] / / Stimulan Rapid Cure Implanted:Qty: 1 on 08/20/2021 by Clifford Grimes MD at [facility] N/A: Spine Biocom[employer]es 12/09/2023 [id number] / / [id number] Description:MIXED WITH 1 GM VANCOMYCIN POWDER Graft Bone Grftn Dbm 5cc Ptty Jr - [id number] Implanted:Qty: 1 on 08/20/2021 by Clifford Grimes MD at [facility] N/A: Spine [employer] Inc 07/13/2024 [id number] / [id number] / Cmnt Bone [facility] Hvr 30% Baso4 Pmma Canc Implanted:Qty: 2 on 08/20/2021 by Clifford Grimes MD at [facility] N/A: Spine Kyphon Inc 04/09/2024 [id number] / / [id number] Screw Set Ti Spnl Brk Off Cd Hzn Nonster Implanted:Qty: 17 on 08/20/2021 by Clifford Grimes MD at [facility] N/A: Spine Medtronic Inc [id number] / / Screw Set Ti Rvrs Ang Spne Pdcl Brkof Implanted:Qty: 2 on 08/20/2021 by Clifford Grimes MD at [facility] N/A: Spine Medtronic Inc [id number] / / Screw 8.5mm 90mm Ma Spne Cocr 5.5mm Bentley Implanted:Qty: 2 on 08/20/2021 by Clifford Grimes MD at [facility] N/A: Spine Medtronic Inc [id number] / / Mas [id number] 5.5/6.0 Fenstrtd 7.5x45 Implanted:Qty: 2 on 08/20/2021 by Clifford Grimes MD at [facility] N/A: Spine Medtronic Inc [id number] / / Mas [id number] 5.5/6.0 Fenstrtd 6.5x45 Implanted:Qty: 2 on 08/20/2021 by Clifford Grimes MD at [facility] N/A: Spine Medtronic Inc [id number] / / Mas [id number] 5.5/6.0 Fenstrtd 5.5x45 Implanted:Qty: 2 on 08/20/2021 by Clifford Grimes MD at [facility] N/A: Spine Medtronic Inc [id number] / / Mas [id number] 5.5/6.0 Fenstrtd 5.5x40 Implanted:Qty: 5 on 08/20/2021 by Clifford Grimes MD at [facility] N/A: Spine Medtronic Inc [id number] / / Screw 7.5mm 40mm Ma Spne Solera Cd Hzn Implanted:Qty: 1 on 08/20/2021 by Clifford Grimes MD at [facility] N/A: Spine Medtronic Inc [id number] / / Mas [id number] 5.5/6.0 Fenstrtd 4.5x40 Implanted:Qty: 1 on 08/20/2021 by Clifford Grimes MD at [facility] N/A: Spine Medtronic Inc [id number] / / Screw 5.5mm 40mm Ma Spne Solera Cd Hzn Implanted:Qty: 2 on 08/20/2021 by Clifford Grimes MD at [facility] N/A: Spine Medtronic Inc [id number] / / Graft Bone Grftn Dbm 5cc Ptty Jr - [id number] Implanted:Qty: 1 on 08/20/2021 by Clifford Grimes MD at [facility] N/A: Spine [employer]otech Inc 07/13/2024 [id number] / [id number] / Graft Tissue Drgn + Bvn Clgn Mtrx 3x3in Implanted:Qty: 1 on 08/20/2021 by Clifford Grimes MD at [facility] N/A: Spine Integra [employer] 05/10/2024 [id number] / / [id number] 5.5 Ccr Bentley Implanted:Qty: 2 on 08/20/2021 by Clifford Grimes MD at [facility] Med[employer]onic Inc [id number] / / Explanted Type Area Hot Dipper Device Identifier Shelf Expiration Date Model / Serial / Lot Bentley Spnl 240mm 3.5mm Std Explanted:Qty: 1 on 08/22/2019 by Clifford Grimes MD at [facility] N/A: Spine Medtronic Sofamor Dane[employer] [id number] / / Screw Set Std Spne Explanted:Qty: 3 on 08/22/2019 by Clifford Grimes MD at [facility] N/A: Spine Medtronic Sofamor [employer] [id number] / / Procedures Procedure Name Priority Date/Time Associated Diagnosis Comments CREATININE - POCT INTERFACED Routine 10/19/2021 8:23 AM CDT HEMOGLOBIN A1C Routine 08/21/2021 3:58 AM CDT Benign essential hypertension HEPATITIS C AB SCREEN RFLX NAAT QUANT STAT 03/30/2019 9:05 PM MANIPULATOR OPERATOR from Last 3 Months or Most Recently Relevant to Health Maintenance Results * CREATININE - POCT INTERFACED (10/19/2021 8:23 AM CDT) Creatinine POCT 0.65 0.30 - 1.30 mg/dL 10/19/2021 8:25 AM CDT [facility] eGFR >90 >90 mL/min/1.7 3 m2 10/19/2021 8:25 AM CDT [facility] Blood BLOOD SPECIMEN / Unknown 10/19/2021 8:23 AM CDT 10/19/2021 8:25 AM CDT us Hermilo Muir MD LAB - POINT OF CARE ORDERABL ES Final Result [facility] [address] [place] [id number], [facility] [phone] * HEMOGLOBIN A1C (08/21/2021 3:58 AM CDT) Pathologist [facility] Hemoglobin A1c 5.3 <=5.6 % 08/21/2021 11:53 AM CDT [facility] Estimated Average Glucose 105 mg/dL 08/21/2021 11:53 AM CDT [facility] Comment: HbA1c Interpretation: Normal : < 5.7% Pre-diabetes: 5.7-6.4% Diabetes: Equal to or greater than 6.5% Test results diagnostic of diabetes should be repeated for confirmation. Treatment target values recommended by ADA and other clinical organizations should be used to evaluate metabolic control in patients. Reference: [place] Diabetes Association, Standards of Care in Diabetes -2020 In patients 70 years and older consider HbA1c target range of 7.0-7.5% (Reference: Armand Rodriguez et al. JAMDA. 2012) The Sebia assay for the measurement of HbA1c is a National Glycohemoglobin Standardization Program (NGSP) certified method. Blood BLOOD SPECIMEN / Unknown Venipuncture / Unknown 08/21/2021 3:58 AM CDT 08/21/2021 4:05 AM CDT Douglas Marino II, DO LAB - CHEMISTRY ORDERA BLES Final Result [facility] [address] [address], [facility] [phone] * HEPATITIS C AB SCREEN RFLX NAAT QUANT (03/30/2019 9:05 PM MANIPULATOR OPERATOR) [facility] Hepatitis C Antibody Non-react robin Non-reac tive 03/30/2019 9:42 PM MANIPULATOR OPERATOR [facility] Comment: Hepatitis C Antibody screen indicates no serologic evidence of past or current infection with Hepatitis C Virus. Patients with unexplained liver disease who are immunocompromised or suspected of having acute Hepatitis C infection may benefit from Nucleic Acid Test (DIMA) for Hepatitis C Viral RNA to confirm Hepatitis C status. Blood BLOOD SPECIMEN / Unknown Lab Venipuncture / Unknown 03/30/2019 9:05 PM MANIPULATOR OPERATOR 03/30/2019 9:05 PM MANIPULATOR OPERATOR Corey Malhotra MD LAB - CHEMISTRY ORDERABLES F inal Result [facility] [address] [place] [address] from Last 3 Months or Most Recently Relevant to Health Maintenance Insurance [facility] Member Subscriber Plan / Payer (Ef fective 2019-Present) Name:Elizabeth Batres Relation to Subscriber:Self Name:DavontejoseluisElizabeth Payer ID:[id number] (NAIC) Group ID:Not on file Type:Medicare-Managed Care Address: [address] [facility] Agency-Miscellaneous Address: [address] [address] [place] [address] [employer] MEDICARE ADV HMO & PPO Advance Directives Documents on File Type Date Recorded 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
--- OUTSIDE RECORDS SUMMARY | 2025-04-01 13:04 | XMS_ITS | Encounter Summary ---
Author Organization [facility] Address [address] [place] [address] Care Team Providers Care Glue Mixer Name Role Phone Morris Casas MD Primary Care Provider [phone] Vivian Rodriguez PT Unavailable Unavailable Colton Abraham Unavailable Unavailable Malcolm Shen MD Unavailable [phone] Malcolm Shen MD Unavailable [phone] Cayetano Tan MD Unavailable Adina Toure RN Unavailable [phone] Debi Diaz LCSW Unavailable Unavaila ble Reason for Visit * Reason Onset Date Comments Scheduling Appointments 07/01/2021 Confirme d dexa Encounter Details Date Type Department Care Team (Late st Contact Info) Description 07/01/2021 Telephone [facility] [address] [place] [address] Anastacia Hernandez, Scheduling Appointments (Confirmed dexa/) Social History Tobacco Use Types Packs/Day Years Used Date Smoking Tobacco: Never Smokeless Tobacco: Never Alcohol Use Standard Drinks/Week Comments Not Currently 0 (1 standard drink = 0.6 oz pur e alcohol) PHQ-2 Answer Date Recorded PHQ-2 Total Score (If total score is 3 or more points, staff should administer the PHQ-9) 0 06/09/2021 Comments No Sex and Gender Information Value Date Recorded Sex Assigned at Not on file Legal Sex Female 8:47 PM SETTLEMENT AGENT Gender Identity Not on file Sexual Orientation Not on file Occupation Industry Job Start Date Job End Date retired Not on file Not on file Not on file documented as of this encounter Plan of Treatment Not on file documented as of this encounter Visit Diagnoses Not on filedocumented in this encounter Additional Health Concerns Infection Onset Date Last Indicated Resolved Time COVID: Suspected 01/16/2022 01/16/2022 01/16/2022 3:33 PM CDT COVID19 01/16/2022 01/16/2022 01/26/2022 3:05 AM CDT COVID: Recovered Comment:Added based on recent COVID infection. 01/26/2022 01/27/2022 05/26/2022 3:[address] COVID: Suspected 02/23/2022 02/23/2022 02/23/2022 5:33 PM SETTLEMENT AGENT COVID: Suspected 06/21/2022 06/21/2022 06/21/2022 12:16 PM CDT COVID19 06/21/2022 06/21/2022 07/01/2022 3:05 AM CDT Influenza, adult 06/21/2022 06/21/2022 06/28/2022 3:05 AM CDT COVID: Recovered Comment:Added based on recent COVID infection. 07/01/2022 07/01/2022 09/29/2022 3:05 AM C DT COVID: Suspected 09/30/2022 09/30/2022 09/30/2022 11:31 AM CDT COVID: Suspected 03/22/2023 03/22/2023 03/22/2023 12:34 PM SETTLEMENT AGENT documented as of this encounter Care Teams Glue Mixer Relationship Specialty Start Date End Date Morris Casas MD [address] [place] [address] PCP - General Family Medicine 08/15/17 Vivian Rodriguez, PT Physical Therapist Physical Therapy 11/29/17 07/20/22 Colton Abraham Fish Trapper Physical Therapy 12/01/17 Malcolm Shen MD Consulting Physician Hematology and Oncology 04/07/21 07/20/22 Malcolm Shen MD Medical Oncologist/Aggregate Conveyor Operator Hematology and Oncology 04/20/22 Cayetano Tan MD Consulting Physician Neurology 08/22/24 Adina Toure, RN [address] [place] [address] [place] [address] Wireworker 08/23/24 10/07/24 Debi Diaz LCSW Licensed Direct Entry Midwife 09/09/24 10/02/24 documented as of this encounter
--- OUTSIDE RECORDS SUMMARY | 2025-04-01 13:04 | XMS_ITS | Encounter Summary ---
Author Organization [facility] Healthcare Address [address] [place] [address] Care Team Providers Care Mainframe Architect Name Role Phone Morris Casas MD Primary Care Provider [phone] Colton Abraham Unavailable Unavailable Malcolm Shen MD Unavailable [phone] Cayetano Tan MD Unavailable Adina Toure RN Unavailable [phone] Debi Diaz LCSW Unavailable Unavaila ble Encounter Details Date Type Department Care Team (Late st Contact Info) Description 08/29/2024 [facility] Post Discharge Follow up phone call [facility] Care [address] [place] [id number] Smitha Friedman RN Social History Tobacco Use Types Packs/Day Years Used Date Smoking Tobacco: Never Smokeless Tobacco: Never Alcohol Use Standard Drinks/Week Comments Not Currently 0 (1 standard drink = 0.6 oz pur e alcohol) [facility] Utilities Answer Date Recorded In the past 12 months has e electric, gas, oil, or water company threatened to shut off services in your home? No 08/19/2024 Social Connection and Isolation Panel Answer Date Recorded In a typical week, how many times do you talk on the phone with family, friends, or neighbors? More than three times a week 08/19/2024 How often do you get togethe r with friends or relatives? Once a week 08/19/2024 How often do you attend chur ch or jewish services? Never 08/19/2024 Do you belong to any clubs o r organizations such as worship groups, unions, fraternal or athletic groups, or school groups? No 08/19/2024 How often do you attend meet ings of the clubs or organizations you belong to? Never 08/19/2024 Are you , , di vorced, , never , or living with a partner? 08/19/2024 AUDIT-C Answer Date Recorded Q1: How often do you have a drink containing alcohol? Never 08/18/2024 Q2: How many drinks containi ng alcohol do you have on a typical day when you are drinking? Patient does not drink Q3: How often do you have si x or more drinks on one occasion? Never 08/18/2024 Overall Financial Resource Strain (CARDIA) Answe r Date Recorded How hard is it for you to pa y for the very basics like food, housing, medical care, and heating? Not hard at all 08/19/2024 PHQ-2 Answer Date Recorded PHQ-2 Total Score (If total score is 3 or more points, staff should administer the PHQ-9) 0 08/29/2024 Hunger Vital Sign Answer Date Recorded Within the past 12 months, y ou worried that your food would run out before you got the money to buy more. Never true 08/20/19 25 Within the past 12 months, t he food you bought just didn't last and you didn't have money to get more. Never true 08/19/2024 PRAPARE - Transportation Answer Date Re corded In the past 12 months, has l ack of transportation kept you from medical appointments or from getting medications? No 08/08 In the past 12 months, has l ack of transportation kept you from meetings, work, or from getting things needed for daily living? No 08/19/2024 Housing Stability Vital Sign Answer Jonah e Recorded In the last 12 months, was t here a time when you were not able to pay the mortgage or rent on time? No 08/19/2024 In the past 12 months, how m any times have you moved where you were living? 0 08/19/2024 At any time in the past 12 m [facility], were you homeless or living in a prison (including now)? No 08/19/2024 Personal Safety Answer Date Recorded Have you ever been in or are you currently in a harmful physical or emotional relationship or is someone making you feel afraid or unsafe? Denies 08/18/2024 Comments No Sex and Gender Information Value Date Recorded Sex Assigned at Not on file Legal Sex Female 8:47 PM MACHINERY RIGGER Gender Identity Not on file Sexual Orientation Not on file Occupation Industry Job Start Date Job End Date retired Not on file Not on file Not on file documented as of this encounter Plan of Treatment Not on file documented as of this encounter Goals Goal Patient Goal Type Associated Problems Recent Progress Patient-Stated? Author CARLOS General Goal - Patient schedules and keeps appointments with all recommended providers ACO Care Management On track(2024 3:54 PM CDT) Adina Kinney RN Note: Problem: Potential for medical complications and readmission if follow-up appointments are not scheduled Interventions: - Ensure all follow-up appointments are scheduled, all prescribed medications have been received. - Address any barriers for keeping scheduled appointment. - Coordinate with patient/caregiver(s) to ensure patient is able to keep scheduled appointment. - Emphasize importance of keeping scheduled appointments. - Identify and discuss questions for next provider visit. - Follow up with patient after scheduled appointment(s) to review any new orders or changes made to medication regimen. CARLOS General Goal - Patient / caregiver verbalizes lifestyle changes necessary to meet self-care needs and executes self-care activities to utmost capability ACO Care Management On track(2024 1:19 PM CDT) Adina Kinney, DALTON Note: Problem: At Risk for Self Care Deficit Interventions: - Assess patient's level of dependence on others along with current level of assistance being provided. - Use motivational interviewing to help guide the patient in accepting the needed amount of assisstance, as applicable. - Contact caregiver and assess their involvement with patient and level of assistance provided, as appropriate. - Assess appropriateness for Home Health. Start referral process if skilled need is present. - Encourage independent ADL's as appropriate. Ensure patient has the appropriate tools at home to be as independent as possible. - Provide fall prevention education to patient and caregiver. - Evaluate need for assistive devices. - Refer to SW if appropriate and patient is agreeable. documented as of this encounter Visit Diagnoses Not on filedocumented in this encounter Care Teams Mainframe Architect Relationship Specialty Start Date End Date Morris Casas MD [address] [place] [address] PCP - General Family Medicine 08/15/17 Colton Abraham Full Stack Software Developer Physical Therapy 12/01/17 Malcolm Shen MD Medical Oncologist/Shipping & Receiving Lead Hematology and Oncology 04/20/22 Cayetano Tan MD Consulting Physician Neurology 08/22/24 Adina Toure, DALTON [address] [place] [address] [place] [address] Precision Farming Coordinator 08/23/24 10/07/24 Debi Diaz LCSW [place] 09/09/24 10/02/24 documented as of this encounter
--- OUTSIDE RECORDS SUMMARY | 2025-04-01 13:04 | XMS_ITS | Encounter Summary ---
Author Organization [facility] Healthcare Address [address] [place] [address] Care Team Providers Care Global Project Manager Name Role Phone Morris Casas MD Primary Care Provider [phone] Vivian Rodriguez PT Unavailable Unavailable Colton Abraham Unavailable Unavailable Malcolm Shen MD Unavailable [phone] Malcolm Shen MD Unavailable [phone] Cayetano Tan MD Unavailable Adina Toure RN Unavailable [phone] Debi Diaz LCSW Unavailable Unavaila ble Encounter Details Date Type Department Care Team (Late st Contact Info) Description 07/02/2021 Telephone [facility] [address] [place] [address] Anastacia Hernandez, RT Social History Tobacco Use Types Packs/Day Years [...] on file Legal Sex Female 8:47 PM HEAD OF ICT Gender Identity Not on file Sexual Orientation [...] COVID: Suspected 02/23/2022 02/23/2022 02/23/2022 5:33 PM HEAD OF ICT COVID: Suspected 06/21/2022 06/21/2022 06/21/2022 12:16 PM CDT COVID19 06/21/2022 06/21/2022 07/01/2022 3:05 AM CDT Influenza, adult 06/21/2022 06/21/2022 06/28/2022 3:05 AM CDT COVID: Recovered Comment:Added based on recent COVID infection. 07/01/2022 07/01/2022 09/29/2022 3:05 AM C DT COVID: Suspected 09/30/2022 09/30/2022 09/30/2022 11:31 AM CDT COVID: Suspected 03/22/2023 03/22/2023 03/22/2023 12:34 PM HEAD OF ICT documented as of this encounter Care Teams Global Project Manager Relationship Specialty Start Date End Date Morris Casas MD [address] [place] [address] PCP - General Family Medicine 08/15/17 Vivian Rodriguez PT Physical Therapist Physical Therapy 11/29/17 07/20/22 Colton Abraham Configuration Release Manager Physical Therapy 12/01/17 Malcolm Shen MD Consulting Physician Hematology and Oncology 04/07/21 07/20/22 Malcolm Shen MD Medical Oncologist/Fountain Brush Assembler Hematology and Oncology 04/20/22 Cayetano Tan MD Consulting Physician Neurology 08/22/24 Adina Toure, RN [address] [place] [address] [address] [place] [id number] Ice Platform Supervisor 08/23/24 10/07/24 Debi Diaz LCSW Resource Coordinator 09/09/24 10/02/24 documented as of this encounter
--- OUTSIDE RECORDS SUMMARY | 2025-04-01 13:05 | XMS_ITS | Encounter Summary ---
Author Organization [facility] Address [address] [place] [address] Phone Care Team Providers Care Wardrobe Specialist Name Role Phone Lore Rodriguez NP Primary Care Provider [phone] Gunjan Wolfe PT Unavailable Unavailable Morris Casas MD Primary Care Provider [phone] Vivian Rodriguez PT Unavailable Unavailable Colton Abraham Unavailable Unavailable Malcolm Shen MD Unavailable [phone] Malcolm Shen MD Unavailable [phone] Cayetano Tan MD Unavailable Adina Toure RN Unavailable [phone] Debi Diaz LCSW Unavailable Unavaila ble Encounter Details Date Type Department Care Team (Late st Contact Info) Description 12/13/2016 Orders Only [facility] ProviderJoseluis MD [address] [place] [address] Social History Tobacco Use Types Packs/Day Years Used Date Smoking Tobacco: Never Smokeless Tobacco: Never Alcohol Use Standard Drinks/Week Comments No 0 (1 standard drink = 0.6 oz pur e alcohol) Comments Unknown Sex and Gender Information Value Date Recorded Sex Assigned at Not on file Legal Sex Female 8:47 PM CARPET SEWER Gender Identity Not on file Sexual Orientation Not on file Occupation Industry Job Start Date Job End Date retired Not on file Not on file Not on file documented as of this encounter Plan of Treatment Not on file documented as of this encounter Procedures Procedure Name Priority Date/Time Associated Diagnosis Comments DISCHARGE LABORATORY CUMULATIVE REPORT 12/13/2016 12:00 AM CDT documented in this encounter Results * DISCHARGE LABORATORY CUMULATIVE REPORT (12/13/2016 12:00 AM CDT) Narrative 12/13/2016 12:00 AM CDT Ordered by an unspecified provider. Historical Provider LAB BLOOD ORDERABLES Wendy l Result documented in this encounter Visit Diagnoses Not on filedocumented in this encounter Additional Health Concerns Infection Onset Date Last Indicated Resolved Time COVID: Suspected 01/16/2022 01/16/2022 01/16/2022 3:33 PM CDT COVID19 01/16/2022 01/16/2022 01/26/2022 3:05 AM CDT COVID: Recovered Comment:Added based on recent COVID infection. 01/26/2022 01/27/2022 05/26/2022 3:[address] COVID: Suspected 02/23/2022 02/23/2022 02/23/2022 5:33 PM CARPET SEWER COVID: Suspected 06/21/2022 06/21/2022 06/21/2022 12:16 PM CDT COVID19 06/21/2022 06/21/2022 07/01/2022 3:05 AM CDT Influenza, adult 06/21/2022 06/21/2022 06/28/2022 3:05 AM CDT COVID: Recovered Comment:Added based on recent COVID infection. 07/01/2022 07/01/2022 09/29/2022 3:05 AM C DT COVID: Suspected 09/30/2022 09/30/2022 09/30/2022 11:31 AM CDT COVID: Suspected 03/22/2023 03/22/2023 03/22/2023 12:34 PM CARPET SEWER documented as of this encounter Care Teams Wardrobe Specialist Relationship Specialty Start Date End Date Lore Rodriguez NP PCP - General 08/01/16 08/14/17 Morris Casas MD [address] [place] [address] PCP - General Family Medicine 08/15/17 Gunjan Wolfe, PT Physical Therapist Physical Therapy 07/24/17 08/14/17 Vivian Rodriguez, PT Physical Therapist Physical Therapy 11/29/17 07/20/22 Colton Abraham Motion Picture Projectionist Apprentice Physical Therapy 12/01/17 Malcolm Shen MD Consulting Physician Hematology and Oncology 04/07/21 07/20/22 Malcolm Shen MD Medical Oncologist/Lactation Specialist Hematology and Oncology 04/20/22 Cayetano Tan MD Consulting Physician Neurology 08/22/24 Adina Toure RN [address] [place] [address] [place] [address] Budget Report Clerk 08/23/24 10/07/24 Debi Diaz LCSW Molded Goods Controls Operator 09/09/24 10/02/24 documented as of this encounter
--- OUTSIDE RECORDS SUMMARY | 2025-04-01 13:05 | XMS_ITS | Encounter Summary ---
Author Organization [facility] Address [address] [place] [address] Care Team Providers Care Feeder Operator Automatic Name Role Phone Morris Casas MD Primary Care Provider [phone] Vivian Rodriguez PT Unavailable Unavailable Colton Abraham Unavailable Unavailable Malcolm Shen MD Unavailable [phone] Malcolm Shen MD Unavailable [phone] Cayetano Tan MD Unavailable Adina Toure RN Unavailable [phone] Debi Diaz LCSW Unavailable Unavaila ble Encounter Details Date Type Department Care Team (Late st Contact Info) Description 03/18/2020 Telephone [facility] [address] [place] [address] Kari Hubbard RDMS Social History Tobacco Use Types Packs/Day Years Used Date Smoking Tobacco: Never Smokeless Tobacco: Never Alcohol Use Standard Drinks/Week Comments Not Currently 0 (1 standard drink = 0.6 oz pur e alcohol) PHQ-2 Answer Date Recorded PHQ-2 Total Score (If total score is 3 or more points, staff should administer the PHQ-9) 0 03/11/2020 Comments No Sex and Gender Information Value Date Recorded Sex Assigned at Not on file Legal Sex Female 8:47 PM RIBBON WINDER Gender Identity Not on file Sexual Orientation [...] COVID: Suspected 02/23/2022 02/23/2022 02/23/2022 5:33 PM RIBBON WINDER COVID: Suspected 06/21/2022 06/21/2022 06/21/2022 12:16 PM CDT COVID19 06/21/2022 06/21/2022 07/01/2022 3:05 AM CDT Influenza, adult 06/21/2022 06/21/2022 06/28/2022 3:05 AM CDT COVID: Recovered Comment:Added based on recent COVID infection. 07/01/2022 07/01/2022 09/29/2022 3:05 AM C DT COVID: Suspected 09/30/2022 09/30/2022 09/30/2022 11:31 AM CDT COVID: Suspected 03/22/2023 03/22/2023 03/22/2023 12:34 PM RIBBON WINDER documented as of this encounter Care Teams Feeder Operator Automatic Relationship Specialty Start Date End Date [place] [address] PCP - General Family Medicine 08/15/17 Vivian Rodriguez PT Physical Therapist Physical Therapy 11/29/17 07/20/22 Colton Abraham Flight Agent Physical Therapy 12/01/17 Malcolm Shen MD Consulting Physician Hematology and Oncology 04/07/21 07/20/22 Malcolm Shen MD Medical Oncologist/Curriculum Consultant Hematology and Oncology 04/20/22 Cayetano Tan MD Consulting Physician Neurology 08/22/24 Adina Toure, RN [address] [place] [address] [place] [address] Liquor Commissioner 08/23/24 10/07/24 Debi Diaz LCSW Container Finishing Inspector 09/09/24 10/02/24 documented as of this encounter
--- OUTSIDE RECORDS SUMMARY | 2025-04-01 13:06 | XMS_ITS | Encounter Summary ---
Author Organization [facility] Address [address] [place] [address] Care Team Providers Care Aircraft Seat Upholsterer Name Role Phone Morris Casas MD Primary Care Provider [phone] Colton Abraham Unavailable Unavailable Malcolm Shen MD Unavailable [phone] Cayetano Tan MD Unavailable Encounter Details Date Type Department Care Team (Late st Contact Info) Description 03/28/2025 Results Follow-Up [facility] of [address] [id number] Dariana Caceres NP [address] [facility] [place] [address] Lipid panel Social History Tobacco Use Types Packs/Day Years Used Date Smoking Tobacco: Never Smokeless Tobacco: Never Alcohol Use Standard Drinks/Week Comments Not Currently 0 (1 standard drink = 0.6 oz pur e alcohol) Social Connection and Isolation Panel Answer Date Recorded In a typical week, how many times do you talk on the phone with family, friends, or neighbors? Once a week 09/10/2024 How often do you get togethe r with friends or relatives? Once a week 09/10/2024 How often do you attend chur ch or jew services? More than 4 times per year 09/10/2024 Do you belong to any clubs o r organizations such as yazdanism groups, unions, fraternal or athletic groups, or school groups? No 09/10/2024 How often do you attend meet ings of the clubs or organizations you belong to? Never 09/10/2024 Are you , , di vorced, , never , or living with a partner? 09/10/2024 Overall Financial Resource Strain (CARDIA) Answe r Date Recorded How hard is it for you to pa y for the very basics like food, housing, medical care, and heating? Not very hard 09/10/2024 PHQ-2 Answer Date Recorded PHQ-2 Total Score (If total score is 3 or more points, staff should administer the PHQ-9) 0 11/18/2024 [facility] of Occupat ional [facility] - Occupational Stress Questionnaire Answer Date Recorded Do you feel stress - tense, restless, nervous, or anxious, or unable to sleep at night because your mind is troubled all the time - these days? Rather much 09/10/2024 PRAPARE - Transportation Answer Date Re corded In the past 12 months, has l ack of transportation kept you from medical appointments or from getting medications? No 06/2024 In the past 12 months, has l ack of transportation kept you from meetings, work, or from getting things needed for daily living? No 09/10/2024 Housing Stability Vital Sign Answer Jonah e Recorded In the last 12 months, was t here a time when you were not able to pay the mortgage or rent on time? No 09/10/2024 In the past 12 months, how m any times have you moved where you were living? 0 09/10/2024 At any time in the past 12 m [facility], were you homeless or living in a fpc (including now)? No 09/10/2024 Social Connection and Isolation Panel Answer Date Recorded In a typical week, how many times do you talk on the phone with family, friends, or neighbors? Three times a week 02/19/2025 How often do you get togethe r with friends or relatives? Once a week 02/19/2025 How often do you attend chur ch or jew services? More than 4 times per year 02/19/2025 Do you belong to any clubs o r organizations such as yazdanism groups, unions, fraternal or athletic groups, or school groups? No 02/19/2025 How often do you attend meet ings of the clubs or organizations you belong to? Never 02/19/2025 Are you , , di vorced, , never , or living with a partner? 02/19/2025 AUDIT-C Answer Date Recorded Q1: How often do you have a drink containing alcohol? Never 02/18/2025 Q2: How many drinks containi ng alcohol do you have on a typical day when you are drinking? Patient does not drink Q3: How often do you have si x or more drinks on one occasion? Never 02/18/2025 Overall Financial Resource Strain (CARDIA) Answe r Date Recorded How hard is it for you to pa y for the very basics like food, housing, medical care, and heating? Not hard at all 02/19/2025 Hunger Vital Sign Answer Date Recorded Within the past 12 months, y ou worried that your food would run out before you got the money to buy more. Never true 02/20/20 25 Within the past 12 months, t he food you bought just didn't last and you didn't have money to get more. Never true 02/19/2025 PRAPARE - Transportation Answer Date Re corded In the past 12 months, has l ack of transportation kept you from medical appointments or from getting medications? No 02/08 In the past 12 months, has l ack of transportation kept you from meetings, work, or from getting things needed for daily living? No 02/19/2025 Housing Stability Vital Sign Answer Jonah e Recorded In the last 12 months, was t here a time when you were not able to pay the mortgage or rent on time? No 02/19/2025 In the past 12 months, how m any times have you moved where you were living? 0 02/19/2025 At any time in the past 12 m [facility], were you homeless or living in a fpc (including now)? No 02/19/2025 [facility] Utilities Answer Date Recorded In the past 12 months has th e electric, gas, oil, or water [employer] threatened to shut off services in your home? No 02/19/2025 Personal Safety Answer Date Recorded Have you ever been in or are you currently in a harmful physical or emotional relationship or is someone making you feel afraid or unsafe? 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
--- OUTSIDE RECORDS SUMMARY | 2025-04-01 13:06 | XMS_ITS | Encounter Summary ---
Author Organization [facility] Address [address] [place] [address] Care Team Providers Care Senior Mortgage Underwriter Name Role Phone Morris Casas MD Primary Care Provider [phone] Colton Abraham Unavailable Unavailable Malcolm Shen MD Unavailable [phone] Cayetano Tan MD Unavailable Reason for Visit * Reason Onset Date Comments Fall 02/21/2025 Encounter Details Date Type Department Care Team (Late st Contact Info) Description 02/21/2025 Nurse Triage [facility] [place] [address] [place] [address] Morris Casas MD [address] [facility] [place] [address] Social History Tobacco Use Types Packs/Day Years [...] often do you attend chur ch or mandaeism services? More than 4 times per year 09/10/2024 Do you belong to any clubs o r organizations such as nondenominational groups, unions, fraternal or athletic groups, or [...] staff should administer the PHQ-9) 0 11/18/2024 [facility] of Occupat ional [facility] - Occupational Stress Questionnaire Answer Date Recorded [...] any time in the past 12 m [facility], were you homeless or living in a alf (including now)? No 09/10/2024 Social Connection and Isolation Panel Answer Date Recorded In a typical week, how many times do you talk on the phone with family, friends, or neighbors? Three times a week 02/19/2025 How often do you get togethe r with friends or relatives? Once a week 02/19/2025 How often do you attend chur ch or mandaeism services? More than 4 times per year 02/19/2025 Do you belong to any clubs o r organizations such as nondenominational groups, unions, fraternal or athletic groups, or [...] any time in the past 12 m [facility], were you homeless or living in a alf (including now)? 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 Additional information was sent to [email or web address] for Wesator. ENGER COACH DRIVER * Telephone Encounter - Rosemarie Mays RN - 02/21/2025 8:46 AM PASSENGER COACH DRIVER DaughterLilly, on HIPAA, calling with patient on speaker phone. Reason for Conversation Fall This am Background Turned around towards chair and fell in head first and slid into the floor. Fell around 1:30 am andlaid on floor until 3:30 am. Waited to contact daughter. Bruise on right elbow, size of a quarter. Dizzy from pain medication, had shoulder surgery (pain from surgery) on Monday. Denies pain from fell OR fever. Disposition Go to ED/C Now (or to Office With PCP Approval) Morris Casas MD contacted via secure chat for ED disposition consult. Recommendation from provider:Proceed to ED, if declines, please observe. Daughter declines and expresses will watch and observe, anything out of the normal will take to ED. Daughter states needs a rollator LENA. Advised to call back if needs further assistance or with questions. Daughter verbalizes understanding. Reason for Disposition Unable to get up until help (e.g., caregiver, family, friend) arrived and on the ground 1 hour or more Protocols Used Falls and Jmfqocz-Ibint-PI ENGER COACH DRIVER * Telephone Encounter - Rosemarie Mays RN - 02/21/2025 8:45 AM PASSENGER COACH DRIVER Regarding: fall ----- Message from Anette Barragan sent at 02/21/2025 8:43 AM PASSENGER COACH DRIVER ----- Symptom Based Call Chief Complaint(s):fall Duration: this morning What type of symptom(s) is the patient experiencing? Red Flag. Is the patient concerned they are experiencing a medical emergency requiring an ambulance? No Additional Comments: patient fell today around 330am and called daughter, stated that she slipped and had been laying on the floor for over an hour Does message need to be routed? Yes-Action Needed ENGER COACH DRIVER documented in this encounter Plan of Treatment Not on [...] on filedocumented in this encounter Care Teams Senior Mortgage Underwriter Relationship Specialty Start Date End Date Morris Casas MD [address] [place] [address] PCP - General Family Medicine 08/15/17 Colton Abraham [place] Physical Therapy 12/01/17 Malcolm Shen MD Medical Oncologist/Relay Worker Hematology and Oncology 04/20/22 Cayetano Tan MD Consulting Physician Neurology 08/22/24 documented as of this encounter
--- OUTSIDE RECORDS SUMMARY | 2025-04-01 13:06 | XMS_ITS | Encounter Summary ---
Author Organization [facility] Address [address] [place] [address] Care Team Providers Care Wool Tamper Name Role Phone Morris Casas MD Primary Care Provider [phone] Vivian Rodriguez PT Unavailable Unavailable Colton Abraham Unavailable Unavailable Malcolm Shen MD Unavailable [phone] Malcolm Shen MD Unavailable [phone] Cayetano Tan MD Unavailable Adina Toure RN Unavailable [phone] Debi Diaz LCSW Unavailable Unavaila ble Encounter Details Date Type Department Care Team (Late st Contact Info) Description 12/24/2018 Documentation [facility] Physicians [address] [facility] [address] [place] [address] Fox Scott MD [facility] [address] [place] [address] Social History Tobacco Use Types Packs/Day Years Used Date Smoking Tobacco: Never Smokeless Tobacco: Never Alcohol Use Standard Drinks/Week Comments Not Currently 0 (1 standard drink = 0.6 oz pur e alcohol) PHQ-2 Answer Date Recorded PHQ-2 Score 0 11/29/2018 Comments No Sex and Gender Information Value Date Recorded Sex Assigned at Not on file Legal Sex Female 8:47 PM APPLICATIONS DEVELOPER Gender Identity Not on file Sexual Orientation [...] COVID: Suspected 02/23/2022 02/23/2022 02/23/2022 5:33 PM APPLICATIONS DEVELOPER COVID: Suspected 06/21/2022 06/21/2022 06/21/2022 12:16 PM CDT COVID19 06/21/2022 06/21/2022 07/01/2022 3:05 AM CDT Influenza, adult 06/21/2022 06/21/2022 06/28/2022 3:05 AM CDT COVID: Recovered Comment:Added based on recent COVID infection. 07/01/2022 07/01/2022 09/29/2022 3:05 AM C DT COVID: Suspected 09/30/2022 09/30/2022 09/30/2022 11:31 AM CDT COVID: Suspected 03/22/2023 03/22/2023 03/22/2023 12:34 PM APPLICATIONS DEVELOPER documented as of this encounter Care Teams Wool Tamper Relationship Specialty Start Date End Date Morris Casas MD [address] [place] [address] PCP - General Family Medicine 08/15/17 Vivian Rodriguez PT Physical Therapist Physical Therapy 11/29/17 07/20/22 Colton Abraham Sales And Retail Management Recruiter Physical Therapy 12/01/17 Malcolm Shen MD Consulting Physician Hematology and Oncology 04/07/21 07/20/22 Malcolm Shen MD Medical Oncologist/Dog And Cat Food Cook Hematology and Oncology 04/20/22 Cayetano Tan MD Consulting Physician Neurology 08/22/24 Adina Toure, RN [address] [place] [address] [place] [address] Data Migration Consultant 08/23/24 10/07/24 Debi Diaz LCSW Bricklayer Paving Brick 09/09/24 10/02/24 documented as of this encounter
--- OUTSIDE RECORDS SUMMARY | 2025-04-01 13:06 | XMS_ITS | Encounter Summary ---
Author Organization [facility] Address [address] [place] [address] Care Team Providers Care Water Treatment Plant Mechanic Name Role Phone Morris Casas MD Primary Care Provider [phone] Colton Abraham Unavailable Unavailable Malcolm Shen MD Unavailable [phone] Cayetano Tan MD Unavailable Reason for Visit * Reason Onset Date Comments Back Pain 04/01/2025 Hip Pain 04/01/2025 UTI 04/01/2025 Encounter Details Date Type Department Care Team (Late st Contact Info) Description 04/01/2025 Nurse Triage [facility] of [address] [address] Morris Casas MD [address] [facility] [place] [address] Social History Tobacco Use Types Packs/Day Years [...] often do you attend chur ch or jain services? More than 4 times per year 09/10/2024 Do you belong to any clubs o r organizations such as denominational groups, unions, fraternal or athletic groups, or [...] staff should administer the PHQ-9) 0 11/18/2024 [facility] of Occupat ional Health - Occupational Stress Questionnaire Answer Date [...] any time in the past 12 m [facility], were you homeless or living in a mcfp (including now)? No 09/10/2024 Social Connection and Isolation Panel Answer Date Recorded In a typical week, how many times do you talk on the phone with family, friends, or neighbors? Three times a week 02/19/2025 How often do you get togethe r with friends or relatives? Once a week 02/19/2025 How often do you attend chur ch or jain services? More than 4 times per year 02/19/2025 Do you belong to any clubs o r organizations such as denominational groups, unions, fraternal or athletic groups, or [...] any time in the past 12 m [facility], were you homeless or living in a mcfp (including now)? No 02/19/2025 [facility] Utilities Answer Date Recorded In the past 12 months has th TeamPatent, gas, oil, or water company threatened to [...] on file Legal Sex Female 8:47 PM PATIENT FINANCIAL SERVICES COORDINATOR Gender Identity Not on file Sexual Orientation Not on file Occupation Industry Job Start Date Job End Date retired Not on file Not on file Not on file documented as of this encounter Miscellaneous Notes * Telephone Encounter - Diane Roe RN - 04/01/2025 8:03 AM PATIENT FINANCIAL SERVICES COORDINATOR Access Center Nurse Triage: Reason for Conversation Back Pain, Hip Pain, and UTI Background LEONARDO 12/17/24 (uti) Patient reports she had a shoulder replacement on . She did resume the warfarin. Her INR has been all over the place. She tests from home. INR Monday was 3.2 and she held it Monday night. She went out for her Birthmonday night and had a nacho. Mon and Monday she took 3mg of warfarin instead of 4mg. Monday she started back on the 4mg of warfarin again. She began having UTI symptoms for about a week now. She has been having lower back pain and hip pain. She is also reporting bleeding in her underwear. She isn't sure if it is coming from the vagina or urethra. She has been having dizzy spells and using her cane again. She slid out of her chair on 03/22 and couldn't get up for several hours. 2-3 days later she tried to lay down on the bed and losther balance and went head first into the wall and landed on the floor. Then a couple days after that she went to clean herself after going to the bathroom, her left hip popped really hard. She alsonoticed her urine was turning darker yellow. She began having groin area pain. Last night was the first time she showered by herself. Her arm couldn't reach everything. She noticed bright red blood on her towel when drying off. She wears a pad for incontinency issues at night. The pad had blood on it this morning. She had some cramping in her groin and she noticed blood on her pad. It is bright red. Some very small/tiny blood clots. No urinary frequency or urgency. Urine is dark. No same day availability in the office today. Patient will go to the [facility] later today. She has a housing appointment this morning that she cannot miss. I will send her an email with the locations of all of the [facility]. Encouraged oral fluids. Disposition Go to Office Now Reason for Disposition Taking Coumadin (warfarin) or other strong blood thinner, or known bleeding disorder (e.g., thrombocytopenia) Protocols Used Urine - Blood In-Adult-[place] ENT FINANCIAL SERVICES COORDINATOR * Telephone Encounter - Diane Roe RN - 04/01/2025 7:57 AM PATIENT FINANCIAL SERVICES COORDINATOR Regarding: Severe lower back and hip pain ----- Message from Hina Barragan sent at 04/01/2025 7:46 AM PATIENT FINANCIAL SERVICES COORDINATOR ----- Symptom Based Call Chief Complaint(s): Severe lower back and hip pain Duration: Since yesterday What type of symptom(s) is the patient experiencing? Red Flag. Is the patient concerned they are experiencing a medical emergency requiring an ambulance? No Additional Comments: Pt states she's also experiencing vaginal bleeding but unsure if it's coming from her bladder, she states she did notice dark clots at one point when wiping and also worse a pad to bed that had blood on it. Does message need to be routed? Yes-Action Needed ENT FINANCIAL SERVICES COORDINATOR documented in this encounter Plan of Treatment Not on file documented as of this encounter Goals Goal Patient Goal Type Associated Problems Recent Progress Patient-Stated? Author CARLOS General Goal - Patient schedules and keeps appointments with all recommended providers ACO Care Management On track(2024 3:54 PM CDT) No Mesfin, Adina L., RN Note: Problem: Potential for medical complications [...] On track(2024 1:19 PM CDT) Adina Kinney, RN Note: Problem: At Risk for Self [...] on filedocumented in this encounter Care Teams Water Treatment Plant Mechanic Relationship Specialty Start Date End [place] [address] PCP - General Family Medicine 08/15/17 Colton Abraham Movie Writer Physical Therapy 12/01/17 Malcolm Shen MD Medical Oncologist/Career Services Coordinator Hematology and Oncology 04/20/22 Cayetano Tan MD Consulting Physician Neurology 08/22/24 documented as of this encounter
--- OUTSIDE RECORDS SUMMARY | 2025-04-01 13:06 | XMS_ITS | Encounter Summary ---
Author Organization [facility] Address [address] [place] [address] Care Team Providers Care Salad Bar Clerk Name Role Phone oMrris Casas MD Primary Care Provider [phone] Colton Abraham Unavailable Unavailable Malcolm Shen MD Unavailable [phone] Cayetano Tan MD Unavailable Reason for Visit * Reason Onset Date Comments Test Results 03/28/2025 Encounter Details Date Type Department Care Team ([facility] Contact Info) Description 03/28/2025 Telephone [facility] of [address] [address] Morris Casas MD [address] [place] [address] Test Results Social History Tobacco Use Types Packs/Day Years [...] often do you attend chur ch or presybeterian services? More than 4 times per year 09/10/2024 Do you belong to any clubs o r organizations such as congregational groups, unions, fraternal or athletic groups, or [...] staff should administer the PHQ-9) 0 11/18/2024 [facility] - Occupational Stress Questionnaire Answer Date Recorded [...] any time in the past 12 m [facility], were you homeless or living [...] often do you attend chur ch or presybeterian services? More than 4 times per year 02/19/2025 Do you belong to any clubs o r organizations such as congregational groups, unions, fraternal or athletic groups, or [...] any time in the past 12 m [facility], were you homeless or living in a fpc (including now)? No 02/19/2025 [facility] Utilities Answer Date Recorded In the past 12 months has [employer] electric, gas, oil, or water company threatened [...] on file Legal Sex Female 8:47 PM SOCIAL SERVICES COUNSELOR Gender Identity Not on file Sexual Orientation Not on file Occupation Industry Job Start Date Job End Date retired Not on file Not on file Not on file documented as of this encounter Miscellaneous Notes * Telephone Encounter - Maria E Mccauley - 03/31/2025 2:44 PM CST Call Back Caller???s Concern: Elizabeth calling in to relay that she hadn't checked her voicemail. She wanted torelay that she held Monday, took 3 mg Monday and Monday and resumed 4 mg on Monday. Does message need to be routed? Yes-FYI Only AL SERVICES COUNSELOR * Telephone Encounter - Debra Rebolledo MA - 03/28/2025 4:33 PM CST Attempted to contact pt. No answer. Lvm to return call to office. AL SERVICES COUNSELOR * Telephone Encounter - Debra Rebolledo MA - 03/28/2025 2:30 PM CST Received fax from [facility]. Pt INR today 03/28 is 3.2. Reviewing chart, pt has been taking 4 mg everyday. Would you like to make any changes and when would you like pt to repeat INR? AL SERVICES COUNSELOR documented in this encounter Plan of Treatment Not on file documented as of this encounter Goals Goal Patient Goal Type Associated Problems Recent Progress Patient-Stated? Author CARLOS General Goal - Patient schedules and keeps appointments with all recommended providers ACO Care Management On track(2024 3:54 PM CDT) Adina Kinney, RN Note: Problem: Potential for medical complications [...] on filedocumented in this encounter Care Teams Salad Bar Clerk Relationship Specialty Start Date End Date [place] [address] PCP - General Family Medicine 08/15/17 Colton Abraham Tax Representative Physical Therapy 12/01/17 Malcolm Shen MD Medical Oncologist/Floor Tiling Professional Hematology and Oncology 04/20/22 Cayetano Tan MD Consulting Physician Neurology 08/22/24 documented as of this encounter
--- OUTSIDE RECORDS SUMMARY | 2025-04-01 13:06 | XMS_ITS | Clinical Summary ---
Author Organization [facility] Address [address] [place] [address] Care Team Providers Care Furnace Tender Name Role Phone Morris Casas MD Primary Care Provider [phone] Colton Abraham Unavailable Unavailable Malcolm Shen MD Unavailable Cayetano Tan MD Unavailable Allergies Active Allergy Reactions Criticality Noted Date Comments 5-Quinn Reductase Inhibitor, Azasteroids Agitation Low Corticosteroids (Glucocorticoids) Agitation,Other (See comments) Medium 10/08/2017 severe aggression Cortisone Agitation Low Hydromorphone Itching Medium 10/08/2017 aggression Morphine Nausea & Vomiting,Nausea Only Medium 10/08/2017 Opioids - Morphine Analogues Prochlorperazine Mental status changes Low Sulfa Unknown 10/04/2021 Sulfa (Sulfonamide Antibiotics) Rash Medium Sulfacetamide Rash Medium 02/02/2022 Sulfasalazine Rash Medium 10/08/2017 Medications ALPRAZolam (XANAX) 0.5 mg tabletIndications :anxiety Take 1 tablet (0.5 mg total) by mouth 2 (two) times a day as needed for anxiety Active vitamin B complex capsule Take 1 capsule by mouth daily Active busPIRone (BUSPAR) 10 mg tablet Take 1 tablet (10 mg total) by mouth 2 (two) times a day Noon and bedtime Active pen needle, diabetic 32 gauge x 1/6 needle Use as directed with semaglutide injection 100 each Active albuterol HFA (PROVENTIL HFA,VENTOLIN HFA,PROAIR HFA) 90 mcg/actuation inhalerIndication s:Bronchospasm Prevention Inhale 2 puffs every 4 (four) hours as needed for wheezing 8.5 each 3 Active OneTouch Verio test strips stripIndications: Controlled type 2 diabetes mellitus with hyperglycemia, with long-term current use of insulin TEST BLOOD SUGAR THREE TIMES DAILY 300 strip 3 Active ondansetron ODT (ZOFRAN-ODT) 4 mg disintegrating tabletIndications :Nausea Take 1 tablet (4 mg total) by mouth every 8 (eight) hours as needed for nausea or vomiting 30 tablet 2 Active simvastatin (ZOCOR) 20 mg tablet TAKE 1 TABLET EVERY NIGHT 90 tablet 3 Active levothyroxine (SYNTHROID) 100 mcg tablet TAKE 1 TABLET EVERY DAY 90 tablet 3 Active simethicone (GAS-X) 125 mg capsule Take 1 capsule (125 mg total) by mouth 4 (four) times a day as needed for flatulence Active lubiprostone (AMITIZA) 24 mcg capsule Take 1 capsule (24 mcg total) by mouth 2 (two) times a day with meals 180 capsule 3 2025 Active hydrocortisone (ANUSOL-HC) 25 mg suppositoryIndica tions:Hemorrhoids Insert 1 suppository (25 mg total) into the rectum 2 (two) times a day as needed for hemorrhoids 24 suppository [address] (PROTONIX) 40 mg EC tablet TAKE 1 TABLET EVERY DAY 90 tablet 3 Active Additional Information Patient taking differently:40 mg oralNightly, Reported on 03/27/[address] (CYMBALTA) 30 mg capsule TAKE 1 CAPSULE TWICE DAILY 180 capsule 3 Active famotidine (PEPCID) 20 mg tablet TAKE 1 TABLET TWICE DAILY 180 tablet 3 Active gabapentin (NEURONTIN) 400 mg capsule TAKE 1 CAPSULE THREE TIMES DAILY AND 2 CAPSULES EVERY NIGHT AT BEDTIME (2000MG CUMULATIVE DAILY DOSE) 500 capsule 1 Active Additional Information Patient taking differently: 400 mg, Takes 1 capsule at noon and 2 capsules at night, Reported on 03/27/2025 warfarin (COUMADIN) 3 mg tablet TAKE DIRECTED DAILY FOR INR GOAL OF 2-3 (ALTERNATE 3MG AND 4MG EVERY OTHER DAY) 45 tablet 3 Active montelukast (SINGULAIR) 10 mg tablet TAKE 1 TABLET EVERY DAY 90 tablet 3 Active Additional Information Patient taking differently:10 mg oralNightly, Reported on 03/27/2025 HYDROcodone-aceta minophen (NORCO) 10-325 mg per tabletIndications :Pain Take 1 tablet by mouth every 4 (four) hours as needed for pain 32 tablet Active Additional Information Patient not taking.Reported on 03/27/2025 ondansetron ODT (ZOFRAN-ODT) 4 mg disintegrating tabletIndications :nausea and vomiting Take 1 tablet (4 mg total) by mouth every 6 (six) hours as needed for nausea or vomiting 20 tablet 2 Active docusate sodium (COLACE) 100 mg capsuleIndication s:constipation Take 1 capsule (100 mg total) by mouth 2 (two) times a day 60 capsule 1 Active butalbital-acetam inophen-caffeine (ESGIC) 50-325-40 mg per tablet Take 1-2 tablets by mouth every 4 (four) hours as needed for headaches (pain) 40 tablet Active methocarbamoL (ROBAXIN) 500 mg tablet Take 1 tablet (500 mg total) by mouth 4 (four) times a day as needed for muscle spasms 120 tablet 2 Active warfarin (COUMADIN) 4 mg tablet TAKE 1 TABLET EVERY DAY OR DIRECTED BY INR CLINIC 100 tablet 3 Active furosemide (LASIX) 40 mg tablet Take 1 tablet (40 mg total) by mouth 2 (two) times a day 60 tablet 4 Active potassium chloride ER (KLOR-CON) 20 mEq CR tablet Take 1 tablet (20 mEq total) by mouth 2 (two) times a day Take with furosemide. 60 tablet 4 025 2025 Active warfarin (COUMADIN) 4 mg tablet TAKE 1 TABLET EVERY DAY OR DIRECTED BY INR CLINIC 100 tablet 3 025 2024 Discontinued Active Problems Problem Noted Date Diagnosed Date Bipolar 1 disorder 02/19/2025 Emphysema of lung 02/19/2025 S/P reverse total shoulder arthroplasty, left Arthritis of left shoulder region 01/17/2025 Diabetes mellitus type II, controlled 12/26/2024 Assessment & Plan (12/26/2024 8:40 AM CDT): Secondary prevention and will follow response. No new blood sugar alterations and will follow resopnse. E. coli UTI 12/26/2024 Assessment & Plan (12/26/2024 8:41 AM CDT): Reviwed prior cours eof antivbiot and will retreat based on prior sensittvy and repeat urinalysis. ENcourage aggressive hydration. BMI 30.0-30.9,adult 12/26/2024 Assessment & Plan (12/26/2024 8:41 AM CDT): Encourag ehealthy food chocies. Target 150min/week aerobic exercise. Obesity (BMI 30.0-34.9) 12/26/2024 Weight loss counseling, encounter for 12/25/2024 Class 1 obesity with body ma ss index (BMI) of 30.0 to 30.9 in adult 12/25/2024 Flank pain 12/01/2024 Assessment & Plan (12/01/2024 7:48 AM CDT): Reveiwed differnetial to include musculoskeletal vs origin of pain. WIll treat empirically with cipro for possible UTI. Refer for urinalsysi and will monitor response. Check CT scan to r/o renal stone. History of gastric bypass 08/28/2024 Tubular adenoma of colon 08/28/2024 Irritable bowel syndrome with constipation 08/28 Hiatal hernia 08/28/2024 Assessment & Plan (09/03/2024 10:58 AM CDT): We have discussed several concerns with the patient. A simple explanation could just be the constipation. It looked quite severe on CT scan and this could attribute to the patient having bloating after eating as well as pushing up on the small hiatal hernia causing some reflux. Given the inflammation and thickening of the GE junction she can also have a marginal ulcer. This would lead to also potentially bloating with eating as well as some reflux symptoms. Finally she could have something such as a Daryl stasis syndrome. Just addressing the hiatal hernia is unlikely to fix all of her symptoms. I 1st went to follow up with the EGD that she is scheduled and then go from there. She is in understanding of the plan. Assessment & Plan (08/29/2024 9:56 AM CDT): Will be seeing general surgery soon for further evaluation. Elevated liver enzymes 08/28/2024 Abdominal pain 08/18/2024 Acute non-recurrent maxillary sinusitis 07/24/19 25 Assessment & Plan (07/23/2024 10:11 AM CDT): Will start on Augmentin. Will monitor. Orders: amoxicillin-clavulanate (AUGMENTIN) 875-125 mg per tablet; Take 1 tablet by mouth 2 (two) times a day for 10 days Annual physical exam 02/17/2024 Assessment & Plan (02/17/2024 3:07 PM SKIDWAY WORKER): Foucs of exam is preventative. Good support from DOP and support animals. 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 Arthritis of left hip 01/25/2024 Assessment & Plan (01/25/2024 9:04 AM CDT): The patient has moderate arthritis of the hip in his markedly debilitated. She has an order for physical therapy which would likely be helpful. Arthritis of right hip 01/25/2024 Assessment & Plan (01/25/2024 9:05 AM CDT): The patient has similar arthritis of both of her hips. She would likely benefit from physical therapy working on gait mechanics and overall physical conditioning as she was debilitated. [facility] she should avoid weight gain. A graduated walking program may be beneficial as well. In the future she may be facing hip replacement surgery but is a poor operative candidate being physically debilitated Pelvic pain 01/12/2024 Assessment & Plan (01/12/2024 8:53 AM CDT): Stable and will continue to ofllow repsonse. Check ultrasound of the area and will montiro erspnose. Controlled type 2 diabetes m ellitus without complication, without long-term current use of insulin 01/12/2024 Assessment & Plan (01/12/2024 8:54 AM CDT): Excelletn glycemic control and will follow response. Joint effusion of pelvis or thigh, right Assessment & Plan (01/12/2024 8:54 AM CDT): Check for evdience fo recurrent right inguinal hernai. Sore throat 01/12/2024 Assessment & Plan (01/12/2024 8:54 AM CDT): Check GAS rapid. Most likely consistnet with viral etiology and reviewed supportive care. Left arm pain 01/10/2024 COVID-19 12/31/2023 Assessment & Plan (12/31/2023 10:48 AM CDT): Post COIVD fatigue. No new smell or taste difficuties. Atherosclerosis of [place]ies of extremities with rest pain, right leg 12/31/2023 Assessment & Plan (12/31/2023 10:48 AM CDT): Cotnineu on secondary prevneiton for PAD with statin and anticoagulant in form of warfarin. Muscle tension headache 09/08/2023 Assessment & Plan (09/08/2023 6:08 PM CDT): Patient has significant neck and shoulder spasms/pain. Has been experiencing increase in headaches. Currently taking [id number] p.r.n.. Limited use of tizanidine as this causes her to feel sleepy. Encouraged patient to take tizanidine 2-3 times per day. Recommended physical therapy to help with neck and upper back pain, patient declines at this time. Unable to take NSAIDs as she is on warfarin, we discussed risks versus benefits of short term use of ibuprofen. Suggested she take ibuprofen 400 mg twice daily with food x2 days only. She is unable to tolerate oral steroids, reports extreme agitation. Breast pain, left 09/08/2023 Assessment & Plan (09/08/2023 6:09 PM CDT): Patient with swelling and tenderness of left breast, also extending down abdomen/pannus. She is scheduled for diagnostic mammogram and ultrasound in 2 weeks. Unclear etiology or increased swelling of pannus/excess skin following weight loss, she has not experiencing any pain or overlying skin changes. No abdominal pain, fevers or night sweats. Encounter for screening mamm ogram for malignant neoplasm of breast 08/24/2023 Assessment & Plan (08/24/2023 8:05 AM CDT): No concerning findings upon exam today. Make sure to wear well fitting supportive bras. She is due for mammogram in a few weeks and encouraged to complete for full evaluation. She is agreeable and states understanding. Of course RTC for any changes which were reviewed today. She is agreeable and states understanding. Mild recurrent major depression 08/08/2023 Pain in both knees 08/07/2023 Osteoarthritis of left shoulder 08/07/2023 Assessment & Plan (08/24/2023 8:03 AM CDT): Continue following with hiv cts specialist as directed. Primary insomnia 07/11/2023 Personal history of colonic polyps 07/03/2023 Encounter for screening colonoscopy 07/03/2023 Claudication 05/25/2023 Shoulder arthritis 05/04/2023 Assessment & Plan (05/04/2023 12:08 PM SKIDWAY WORKER): Patient is developing arthritis of her shoulders. She has a more advanced changes on the left side than the right. Likely has a component of rotator cuff tendinitis with impingement on the left side as well. After reviewing the treatment options she elected undergo a cortisone injection due the severity of her symptoms for her left shoulder. She tolerated the procedure well. Stretching exercises were recommended on ongoing basis. In the future she may be facing the need or consideration for shoulder replacement surgery or reverse total shoulders. In her group Dr. Gutiérrez as a shoulder subspecialist with expertise in these techniques Current use of glassware maker demonstrator anticoagulation 023 Abnormal EKG 07/26/2022 Atrophy of liver 04/26/2022 Assessment & Plan (08/29/2024 10:01 AM CDT): Stable and continue to follow LFTs. Orders: Comprehensive metabolic panel; Future Assessment & Plan (12/31/2023 10:48 AM CDT): Stable and continue to follow LFTs. Dilation of biliary tract 04/26/2022 Chronic constipation 04/26/2022 LLQ pain 04/26/2022 Globus sensation 04/26/2022 Antibiotic long-term use 04/26/2022 Tremor, essential 02/17/2022 Oropharyngeal dysphagia 02/07/2022 Assessment & Plan (02/07/2022 11:55 AM CDT): Agree with starting physical therapy tomorrow Continue Protonix and Famotidine twice daily Modified barium swallow Centralized Scheduling: 64 ounces of caffeine free and soda free fluid daily Acute blood loss as cause of postoperative anemi a 10/26/2021 Neurogenic claudication 10/26/2021 Oliguria 10/26/2021 Post-operative pain 10/26/2021 Radiculopathy 10/26/2021 Spinal stenosis of lumbar region 10/26/2021 Deep postoperative wound infection 10/05/2021 Traumatic incomplete tear of right rotator cuff 07/20/2021 Assessment & Plan (08/03/2021 3:57 PM CDT): By MRI the patient has a partial thickness articular sided rotator cuff tear with tendinopathy and postop changes at the AC joint. She is more symptomatic currently on her left side. She is facing back surgery next week and once she has recovered if she is having ongoing issues with her shoulder she most likely should get back in for follow-up Assessment & Plan (07/20/2021 10:37 AM CDT): Patient likely has a high-grade partial-thickness tear of her right rotator cuff. She has had physical therapy since her injury in December and notes progressive pain and weakness. She has not responded to cortisone the past. Would recommend obtaining an MRI to evaluate the extent of the damage initiate appropriate treatment accordingly. Traumatic complete tear of left rotator cuff 03/2022 Assessment & Plan (07/20/2021 10:38 AM CDT): Patient is scheduled undergo major back surgery on her spine surgeon indicated would be best to address any shoulder issues 1st. She has failed respond to conservative measures and would recommend obtaining an MRI. She does have arthritic changes of her shoulder joint but not end-stage arthritis. As such she may have a correctable problem Primary osteoarthritis of both knees 04/26/2021 Assessment & Plan (04/26/2021 9:42 AM SKIDWAY WORKER): Patient total knees appear to be doing [...] currently taking. Contusion of left thumb 02/23/2021 Traumatic incomplete tear of left rotator cuff 1 04/25/2020 Assessment & Plan (08/03/2021 3:55 PM CDT): Patient has evidence of a partial-thickness rotator cuff tear by MRI of her shoulder with tendinopathy. This likely producing impingement of the shoulder. Patient was not symptomatic prior to her fall with her shoulder and likely has ongoing issues related to the injury itself. She failed respond to physical therapy. Having failed respond to conservative measures she may want to get in to see Dr. jake wallace pediatric sports medicine specialist who has expertise in arthroscopic rotator cuff repairs or consider cortisone for temporizing relief. She has major back surgery scheduled next week and once she has recovered she may want to get back in to be seen Assessment & Plan (02/23/2021 2:30 PM SKIDWAY WORKER): Patient likely aggravated her left shoulder and has partial-thickness rotator cuff tear. She may benefit from physical therapy. De Quervain's syndrome (tenosynovitis) Assessment & Plan (02/23/2021 2:31 PM SKIDWAY WORKER): Clinically the patient has de Quervain tenosynovitis and may have strained the flexor tendons of the wrist as well. A wrist control splint was issued for better protection. She may find physical and/or occupational therapy beneficial. Rotator cuff tendinitis, left 07/02/2020 Assessment & Plan (04/26/2021 9:43 AM SKIDWAY WORKER): Patient failed to get significant relief with [...] it helpful for her in the past. Assessment & Plan (07/02/2020 10:21 AM CDT): Patient likely strained her rotator cuff and possible labrum. She was offered physical therapy but wants to use CBD oils instead. The patient was also offered a cortisone injection which would likely help with the inflammation but indicates they do not work for her. She was advised to work on stretching exercises to prevent a frozen Cervical spondylosis without myelopathy 07/03/19 Assessment & Plan (07/02/2020 10:22 AM CDT): Patient has undergone a previous extensive cervical fusion and with radiculopathy in the arm I would recommend she get in to see her [facility]. She is not myelopathic at this time Right calf pain 07/02/2020 Assessment & Plan (07/02/2020 5:03 PM CDT): Patient has noted some swelling and pain [...] is anticoagulated she still could get one. History of total knee arthroplasty, bilateral Epigastric pain 01/17/2020 Assessment & Plan (01/17/2020 2:17 PM CDT): Pt says she had severe epigastric pain [...] present, we will plan to do imaging. Anemia 01/17/2020 Overview (01/17/2020): Added automatically from request for surgery [id number] Gastro-esophageal reflux disease without esophag itis 01/17/2020 Overview (02/03/2020): Added automatically from request for surgery [id number] Iron deficiency anemia following bariatric surge ry 12/25/2019 Assessment & Plan (01/17/2020 2:16 PM CDT): Pt referred by hematology due to findings of anemia. Her last colonoscopy was in 2015 and she is due for screening 05/2020; however, due to issues with anemia requiring iron infusions, will go ahead and schedule to rule out GI bleeding. Pt denies any overt signs of GI bleeding. We discussed having EGD as well. Pt had just had EGD in 2018 and was normal. Pt agreed until she found out she would need COVID test. She does not want to have COVID test done and just wants lower scope done. Last hgb done was 10.5. She had iron infusion done on Monday. Thromboembolism 05/08/2019 Assessment & Plan (08/29/2024 10:01 AM CDT): Stable and controlled. Will continue to monitor and get updated CBC. Continues on warfarin for anticoagulation and will monitor response. Orders: CBC with auto differential; Future Assessment & Plan (12/31/2023 10:48 AM CDT): Continues on warfarin for [id number] and will monitor response. Hypertension associated with diabetes 05/08/2019 Assessment & Plan (08/29/2024 10:01 AM CDT): Stable and well controlled. Will continue to monitor. No longer on medications. Orders: Hemoglobin A1c; Future Comprehensive metabolic panel; Future Assessment & Plan (02/17/2024 3:05 PM SKIDWAY WORKER): Stable on furosemide. Need for vaccination 04/18/2019 Assessment & Plan (04/18/2019 1:27 PM SKIDWAY WORKER): Tdap vaccine given today. Discussed possible tenderness/redness at injection site. Encounter for osteoporosis s creening in asymptomatic postmenopausal patient 04/18/2019 Assessment & Plan (04/18/2019 1:27 PM SKIDWAY WORKER): DEXA ordered. Will contact with results once received. Cough 04/18/2019 Assessment & Plan (12/31/2023 10:47 AM CDT): Reviewed post - covid cough. Reviewed inflammatory component and reviewed cxr. No s/s of post viral bacterial pneumonia. Assessment & Plan (04/18/2019 1:30 PM SKIDWAY WORKER): You will need to take over the counter medications: Advise to use Mucinex and nasal saline to help with congestions and mucus. Add flonase 1 spray per nostril daily for the next 2 weeks. Add Claritin, Franchesca or Zyrtec daily for nasal drip Mucinex for chest congestion Coricidin HBP for head/nasal congestion, Dayquil/delsym for cough Drink plenty of fluids. May take Tylenol for pain. Contact the office if not better in a 7-10 days or if getting worse. If symptoms worsen or you experience shortness of breath, return to clinic or go to ER. Chronic anticoagulation 04/04/2019 Assessment & Plan (01/17/2020 2:24 PM CDT): Pt currently on coumadin therapy due to multiple thromboembolic episodes. S/P cervical spinal fusion 02/23/2019 Assessment & Plan (09/18/2024 7:55 AM CDT): No new weakness in the bilateral upper extremities. Assessment & Plan (02/17/2024 3:06 PM SKIDWAY WORKER): COntinues ot receive support from daughter. Decreaed ROM. Dizziness and giddiness 01/22/2019 Disorder of refraction and accommodation 019 Nuclear senile cataract 10/02/2018 Cervicalgia 09/18/2018 Assessment & Plan (09/18/2018 8:39 AM CDT): Has seen Dr Mabry in past few months at [facility] for injections. Very minimal improvement noted. Seen in pain mgmt office every 3 months (sees [facility]). Discussed at length needing neurosurg/neuro eval. Will call w/[facility] physician that she would like referral sent to (family member went to them). Chronic bilateral low back pain without sciatica 09/18/2018 Assessment & Plan (12/01/2024 7:49 AM CDT): Supportive care and will follow response. Assessment & Plan (09/18/2018 8:40 AM CDT): Encouraged otc tylenol/ibuprofen prn back pain. Sees Dr Mabry at [facility]. Discussed ice, gentle ROM, increased activity/core strengthening & other non pharm methods of pain relief. Denies bowel/bladder dysfunction. Denies cauda equina. Reviewed red flags. Has seen Dr Mabry in past few months at [facility] for injections. Very minimal improvement noted. Seen in pain mgmt office every 3 months (sees [facility]). Discussed at length needing neurosurg/neuro eval. Will call w/[facility] physician that she would like referral sent to (family member went to them). Chronic tension-type headache, not intractable 0 09/18/2018 Assessment & Plan (09/18/2018 8:41 AM CDT): Headaches are stable. Continue current treatment regimen. Advised to keep a headache diary. Counseled regarding lifestyle modifications. Discussed neck pain associated w/MEJÍA. Need to control neck pain to improve MEJÍA. Need for pneumococcal vaccination 09/18/2018 Assessment & Plan (09/18/2018 9:10 AM CDT): prevnar 13 vaccine given today. Discussed possible tenderness/redness at injection site. Cubital tunnel syndrome on right 08/20/2018 Trigger middle finger of right hand 08/20/2018 Ulnar neuropathy of right upper extremity 2018 Arthritis of right acromioclavicular joint 09/22 Overview (09/22/2017): Added automatically from request for surgery [id number] Tear of right rotator cuff 09/22/2017 Overview (09/22/2017): Added automatically from request for surgery [id number] Iron deficiency anemia [place] to inadequate dietary iron intake 06/16/2017 Assessment & Plan (03/10/2020 10:38 AM SKIDWAY WORKER): -Likely due to past history of gastric bypass and pt says she is unable to eat red meat. -Will get guaiac stool testing. If this is positive, we will schedule small bowel capsule endoscopy. If negative, no need for further GI workup at this time. Carpal tunnel syndrome on right 02/19/2017 Closed vertical fracture of patella 09/22/2015 Overview (07/15/2016): Closed nondisplaced longitudinal fracture of right patella, initial encounter Gastroesophageal reflux disease 06/29/2015 Overview (07/15/2016): Gastroesophageal reflux disease Assessment & Plan (12/01/2024 7:49 AM CDT): Stable on pantorpazole and will follow response. No dysphagia, no melena, no hematochezia. Assessment & Plan (09/18/2024 7:54 AM CDT): Continues on pantoprazole and will follow response. No dysphagia, no melena, no hematochezia. Assessment & Plan (02/17/2024 3:02 PM SKIDWAY WORKER): Continue on dual agenet therapy no recurrent dysphagia. Asthma 06/29/2015 Overview (07/15/2016): Asthma Chronic migraine without aur a without status migrainosus, not intractable 06/29/2015 Overview (07/15/2016): Migraine Assessment & Plan (09/18/2024 7:54 AM CDT): Continues on butalbital and will monitor erspnose. Continues on migraine and will follow response. Assessment & Plan (02/17/2024 3:06 PM SKIDWAY WORKER): Reviewed use of butalbital adnw ill follow response. Assessment & Plan (05/03/2017 3:39 PM SKIDWAY WORKER): Had head CT and c-spine CT in [place] in March. These results were reviewed and were negative. Continue fioricet per pain management. Type 2 diabetes mellitus 06/29/2015 Overview (07/15/2016): Type 2 diabetes mellitus Assessment & Plan (07/23/2024 10:11 AM CDT): Decreased Mounjaro to 2.5 mg due to hypoglycemia episodes with no symptom. Orders: tirzepatide (Mounjaro) 2.5 mg/0.5 mL pen injector injection; Inject 0.5 mL (2.5 mg total) under the skin once a week Assessment & Plan (02/17/2024 3:05 PM SKIDWAY WORKER): REivewed glycmei cocntorl targets. Reivewed import of dietary control with decreased aerobic exericse capability. Assessment & Plan (05/03/2017 3:37 PM SKIDWAY WORKER): Has been stable without oral medications. Recheck hga1c and microalbumin. F/u 6 months and as needed Assessment & Plan (10/31/2016 2:34 PM CDT): Stable; no change - hga1c was 6.1% History of deep venous thrombosis 06/29/2015 Overview (07/15/2016): Hx of deep venous thrombosis History of pulmonary embolism 06/29/2015 Overview (07/15/2016): Hx pulmonary embolism Assessment & Plan (12/01/2024 7:48 AM CDT): Continues on warfarin montioring for chronic anticioagulation and will follow response. Assessment & Plan (02/17/2024 3:07 PM SKIDWAY WORKER): Continue warfarin monitoring. Hypothyroidism 06/29/2015 Overview (07/15/2016): Hypothyroidism Assessment & Plan (12/26/2024 8:40 AM CDT): Clinically euthyroid. Continue to ofllow TFTs. WIll follow response. Assessment & Plan (09/18/2024 7:55 AM CDT): Clinically euthyroid. Continue to follow tfts and will monitor response. Assessment & Plan (05/03/2017 3:38 PM SKIDWAY WORKER): Due for repeat TSH. Continue levothyroxine 88mcg Hyperlipidemia 06/29/2015 Overview (07/15/2016): Hyperlipidemia Assessment & Plan (05/03/2017 3:38 PM SKIDWAY WORKER): Lipid abnormalities are improving with treatment. Pharmacotherapy as ordered. Lipids will be reassessed in 6 months. Benign essential hypertension 06/29/2015 Overview (07/15/2016): Benign essential hypertension Assessment & Plan (02/17/2024 3:03 PM SKIDWAY WORKER): Stable on current reigmen. WIll follow response. Yes. Assessment & Plan (08/24/2023 8:03 AM CDT): Stable. Will continue to monitor. Assessment & Plan (10/31/2016 2:40 PM CDT): Hypertension is unchanged. Continue current treatment regimen. Regular aerobic exercise. Continue current medications. Blood pressure will be reassessed at the next regular appointment. Mood disorder ([facility]) 06/29/2015 Overview (07/15/2016): Depressive disorder Assessment & Plan (09/18/2024 7:55 AM CDT): Mood with current stressors related to anxiety and adjustmetn to sick dog. Will continue to follow on duloxetine and buspirone. Prn alprazolam. Assessment & Plan (02/17/2024 3:04 PM SKIDWAY WORKER): Stable on duloxetine. Continue on buspirone. COntinue on alprazolam and will follow response. Mood control. Assessment & Plan (12/13/2016 1:34 PM CDT): She sees Dr. Gutiérrez and has a counselor there in [place] as well. They are discussing stopping the cymbalta and trying something else. I think stress and not sleeping are likely the cause of her fatigue. Anxiety disorder 06/29/2015 Overview (07/15/2016): Anxiety disorder Assessment & Plan (12/26/2024 8:41 AM CDT): Continues on buspirone and prn alpraozlam. WIll follow response. Assessment & Plan (02/17/2024 3:05 PM SKIDWAY WORKER): Reivweed and will montior response. WIll continue to follow with prn alprazolam and will follow response. Fibromyalgia 04/10/2011 Overview (10/31/2016): Fibromyalgia Assessment & Plan (02/17/2024 3:06 PM SKIDWAY WORKER): DUloxetinea nd increase activity even chair exercise. Bradycardia by electrocardiogram Resolved Problems Problem Noted Date Diagnosed Date Resolved Date Acute postoperative pulmonary insufficiency 10/26/2021 12/31/2023 Severe obesity (BMI 35.0-39. 9) with comorbidity 01/17/2020 12/31/2023 Impingement syndrome of right shoulder 09/22/2017 09/18/2018 Overview (09/22/2017): Added automatically from request for surgery [id number] Biceps tendinitis of right upper extremity 09/22/2017 09/18/2018 Overview (09/22/2017): Added automatically from request for surgery [id number] Right calf pain 03/14/2017 05/03/2017 Other chest pain 03/14/2017 05/03/2017 Assessment & Plan (03/14/2017 1:39 PM SKIDWAY WORKER): Hx DVT and PE . Now complaining of shortness of breath, left sided chest pain. Will need to r/o PE due to symptoms. Discussed with patient and she's agreeable to be evaluated in the ER . Clotting disorder 10/31/2016 01/17/2020 Assessment & Plan (10/31/2016 2:38 PM CDT): She does not know the name of the specific disorder. She tells me her Mom had it as well. She thinks she can find it in paperwork at home. I cannot find reference to it in [employer] or [employer]. She has a hx of PE and DVT's. She is currently on coumadin. I would like to refer her to Hematology so she can discuss the risks and benefits of changing to 1 of the newer medications such as Xarelto or Eliquis. Right rotator cuff tendinitis 10/27/2016 09/18/2018 Tear of right rotator cuff 10/13/2016 0 12/13/2016 Assessment & Plan (10/13/2016 2:05 PM CDT): The patient has not responded to cortisone in the past for any shoulder knee issue. The patient also is on blood thinners for multiple deep vein thrombosis and cannot tolerate oral anti-inflammatories. I would recommend an MRI to evaluate the integrity of the rotator cuff she require repair on the left side and if torn she is a poor medication management risk Rotator cuff tendinitis 10/13/2016 09/0 08/2016 Assessment & Plan (10/27/2016 2:56 PM CDT): The patient was given a cortisone injection through a sterile field in the subacromial space. She tolerated the procedure well. Would have physical therapy working on a conditioning program. She inquired about massage therapy which may be helpful Assessment & Plan (10/13/2016 2:06 PM CDT): Left rotator cuff tendinitis is most likely diagnosis although the patient may have some recurrent tearing that the partial-thickness that still while she raise the arm. Depending on her right shoulder issues would have physical therapy working on a conditioning program Acute abdominal pain 05/12/2016 017 Overview (07/15/2016): Abdominal pain, acute Strain of neck muscle 09/22/20152017 Overview (07/15/2016): Cervical muscle strain, initial encounter Fibrositis 06/29/2015 12/13/2016 Overview (07/15/2016): Fibromyalgia Medication side effect, initial encounter 09/18/2018 Encounters Date Type Department Care Team Description 04/01/2025 Nurse Triage [facility] [address] [phone] Morris Casas MD 03/28/2025 Telephone [facility] [address] [phone] Morris Casas MD Test Results 03/28/2025 Telephone [facility] Orthopedics and Sports Medicine at [address] [phone] Ishan Gutiérrez MD 03/28/2025 Results Follow-Up [facility] [place] [address] [place] [address] Dariana Caceres NP Lipid panel 03/27/2025 1:45 PM SKIDWAY WORKER Office Visit [facility] at [address] [phone] Ishan Gutiérrez MD S/P reverse total shoulder arthroplasty, left (Primary Dx) 03/27/2025 1:15 PM SKIDWAY WORKER - 03/27/2025 11:59 PM SKIDWAY WORKER Hospital Encounter [facility] [address] [place] [phone] Discharge Disposition: Discharge to home or self care 03/27/2025 11:45 AM SKIDWAY WORKER Lab [facility] [address] [place] [address] Medicare annual wellness visit, subsequent; Encounter for lipid screening for cardiovascular disease 03/27/2025 11:30 AM SKIDWAY WORKER Lab [facility] [address] [place] [address] Controlled type 2 diabetes mellitus without complication, without long-term current use of insulin; History of gastric bypass; Other specified intestinal malabsorption; Class 3 severe obesity with serious comorbidity in adult, unspecified BMI, unspecified obesity type 03/25/2025 2:15 PM SKIDWAY WORKER Office Visit [facility] [address] [place] [address] Medical Office [address] [place] [address] Marita Ochoa NP Iron deficiency anemia following bariatric surgery (Primary Dx); Iron deficiency anemia secondary to inadequate dietary iron intake 03/25/2025 1:45 PM SKIDWAY WORKER Lab [address] [place] [address] Iron deficiency anemia secondary to inadequate dietary iron intake 03/25/2025 [facility] Post Discharge Follow up phone call [address] [address] Yeni AvelarHalina 03/18/2025 2:00 PM SKIDWAY WORKER [facility] Management [address] [facility] Medical Office Building [address], [address] [place] [address] Julia Guerrero NP Weight loss counseling, encounter for (Primary Dx); Type 2 diabetes mellitus with diabetic polyneuropathy, without long-term current use of insulin (HCC); Obesity (BMI 30.0-34.9); History of gastric bypass 03/14/2025 Anticoagulation Telephone Call [facility] [address] [phone] Judy Dee RN History of deep venous thrombosis (Primary Dx); History of pulmonary embolism; Current use of correction anticoagulation 03/05/2025 1:48 PM SKIDWAY WORKER - 03/05/2025 11:59 PM SKIDWAY WORKER Hospital Encounter [facility] [address] [place] [phone] Discharge Disposition: Discharge to home or self care 03/05/2025 1:45 PM SKIDWAY WORKER Office Visit [facility] at [address] [phone] Alma Beck PA S/P reverse total shoulder arthroplasty, left (Primary Dx); Arthritis of left shoulder 03/03/2025 Orders Only [facility] [address] [phone] Morris Casas MD 02/27/2025 Telephone [facility] [address] [phone] Morris Casas MD Symptom Based Call 02/26/2025 [facility] Post Discharge Follow up phone call [address] [phone] Ciaran Burnett RN 02/21/2025 Orders Only [facility] at [address] [phone] Alma Beck PA 02/21/2025 Nurse Triage [facility] [address] [phone] Morris Casas MD 02/18/2025 10:32 AM SKIDWAY WORKER Anesthesia Event [facility] Operating Room [address] [place] [address] Nela Mckenna DO Barnhart, Lynlee Jo, NP 02/18/2025 10:30 AM SKIDWAY WORKER - 02/18/2025 3:00 PM SKIDWAY WORKER Surgery [facility] Operating Room [address] [place] [address] Ishan Gutiérrez MD LEFT ARTHROPLASTY SHOULDER - REVERSE TOTAL 02/18/2025 9:45 AM SKIDWAY WORKER Ancillary Procedure [facility] Operating Room [address] [place] [address] 02/18/2025 8:36 AM SKIDWAY WORKER - 02/19/2025 3:10 PM SKIDWAY WORKER Hospital Encounter [address] [address] Ishan Gutiérrez MD Khoukaz, Hugo Faye MD Arthritis of left shoulder region Discharge Disposition: Discharge to home or self care 02/12/2025 1:15 PM SKIDWAY WORKER Pre-Admission Testing [facility] Pre Anesthesia Testing [address] [place] [phone] Pre-op testing (Primary Dx) 02/12/2025 Orders Only [facility]ics [facility] Medicine at [address] [phone] Ishan Gutiérrez MD 02/07/2025 1:20 PM CDT Office Visit [facility] Medicine Metabolic Weight Management [address] [facility] Medical Office [address], [address] [place] [address] Meera Coffey MD Weight loss counseling, encounter for (Primary Dx); Controlled type 2 diabetes mellitus without complication, without long-term current use of insulin; Class 1 obesity with serious comorbidity and body mass index (BMI) of 30.0 to 30.9 in adult, unspecified obesity type; History of gastric bypass; Other specified intestinal malabsorption; Class 3 severe obesity with serious comorbidity in adult, unspecified BMI, unspecified obesity type 01/24/2025 1:12 PM CDT - 01/24/2025 11:59 PM CDT Hospital Encounter [facility] and Radiology [address] [place] [address] Arthritis of left shoulder Discharge Disposition: Discharge to home or self care 01/20/2025 2:30 PM CDT Lab [facility] [address] [place] [address] Left shoulder pain, unspecified chronicity; Vitamin D deficiency; Hypoglycemia 01/20/2025 Orders Only [facility] [address] [phone] Morris Casas MD 01/20/2025 Telephone [facility] [address] [phone] Morris Casas MD Additional Services Or Orders 01/17/2025 Telephone [facility] [address] [phone] Morris Casas MD 01/16/2025 2:30 PM CDT Office Visit [facility] Sports Medicine at [address] [phone] Ishan Gutiérrez MD Hypoglycemia (Primary Dx); Left shoulder pain, unspecified chronicity; Vitamin D deficiency; Arthritis of left shoulder 01/16/2025 2:24 PM CDT - 01/16/2025 11:59 PM CDT [facility] [address] [place] [phone] Discharge Disposition: Discharge to home or self care 01/09/2025 11:33 AM CDT - 01/09/2025 11:59 PM CDT Hospital Encounter [facility] [address] [place] [address] Dysuria Discharge Disposition: Discharge to home or self care 01/08/2025 Orders Only [facility] [address] [phone] Morris Casas MD Dysuria (Primary Dx) 01/08/2025 Orders Only [facility] [address] [phone] Morris Casas MD Urinary tract infection without hematuria, site unspecified (Primary Dx) 01/07/2025 1:30 PM CDT Infusion [address] [place] [phone] Iron deficiency anemia following bariatric surgery (Primary Dx) 01/07/[address] [place] [phone] Malcolm Shen MD 01/06/2025 3:00 PM CDT Office Visit [facility] [address] [place] [address] Medical Office Building [address] [place] [address] Darryn Licona MD Abdominal bloating (Primary Dx); S/P gastric bypass 12/31/2024 1:30 PM CDT Infusion [address] [place] [phone] Iron deficiency anemia following bariatric surgery (Primary Dx) from Last 3 Months Immunizations Immunization Administration Dates Next Due COVID-19 mRNA ([employer]) 0.3 m L (30 mcg) vaccine (12 years and up) 01/03/2023 Influenza, Quad, Adjuvantate d, Intramuscular 12/22/2020,12/11/2019 Influenza, Quadrivalent, Hig h Dose, Preservative Free, Intrr 02/02/2023,12/22/2021,12/20/2018,01/18,01/31/2017,01/25/2016 Influenza, Quadrivalent, Spl it, Intramuscular 12/11/2019,12/09/2017,01/21/2015 Influenza, Quadrivalent, Spl it, Preservative Free, Intramuscular 01/26/2015 Influenza, Trivalent, High D ose, Split, Preservative Free, Intramuscular 12/20/2018,01/18/2018,01/31/2017,01/24 Influenza, Trivalent, IM (MDV) 01/31/2014 Influenza, Trivalent, Preser vative Free, Intramuscular 12/11/2019,01/31/2014 Influenza, Unspecified 01/15/2024,2022,12/14/2022(Defer red: Patient Refused),12/22/2020,12/11/2019, 019 Pfizer SARS-CoV-2 Monovalent Vaccination (12+ Yrs) PURPLE 01/06/2022,08/05/2021,08/04/2021,02/01,02/01/2021,07/24/2020,07/03/2020 Pfizer Sars-Cov-2 Bivalent V accination (12+ YRS) 01/06/2022 Pneumococcal Conjugate PCV 13 09/18/2018, 015,04/10/2014 Pneumococcal Conjugate, Unspecified 04/10/2014,0 04/10/2014 Pneumococcal Polysaccharide PPV23 05/03/2017,04/2016,04/10/2010 RSV Vaccine, Pref, Recombina nt, Subunit, Adjuvanted, PF, IM (Arexvy) 02/02/2023,01/03/2023 Tdap 04/18/2019 ZOSTER LIVE 06/29/2015 Surgical History Surgery Date Site/Laterality Comments SECTION OTHER SURGICAL HISTORY bowel obstruction with resection TONSILLECTOMY KNEE ARTHROPLASTY Bilateral Knee replacement APPENDECTOMY CHOLECYSTECTOMY UMBILICAL HERNIA REPAIR THYROIDECTOMY partial CERVICAL FUSION c-5-6-7 GASTRIC BYPASS HYSTERECTOMY 04/10/1980 - 04/09/1981 CATARACT EXTRACTION CATARACT EXTRACTION 02/07/2019 Left BREAST BIOPSY 03/02/2020 Right COLONOSCOPY 07/21/2015 BACK SURGERY 08/08/2021 - 09/07/2021 KNEE ARTHROSCOPY W/ LATERAL RELEASE COLON SURGERY SECTION 1974 & 1976 FRACTURE SURGERY 1992 PORT PLACEMENT CHEST >5 YEARS 09/14/2021 N/A ORIF ANKLE FRACTURE SMALL BOWEL RESECTION SHOULDER ARTHROSCOPY Bilateral GANGLION CYST EXCISION LUMBAR FUSION ESOPHAGOGASTRODUODENOSCOPY DARYL-EN-Y PROCEDURE COLONOSCOPY 02/09/2020 - 03/09/2020 COLONOSCOPY 10/23/2024 UPPER GASTROINTESTINAL ENDOSCOPY 10/23/2024 JOINT REPLACEMENT 2007 & 2009 SPINE SURGERY ABDOMINAL SURGERY BARIATRIC SURGERY 2006 Medical History Medical History Date Comments Asthma Seasonal Allergy Induced Fibromyalgia DVT (deep venous thrombosis) ble Migraine Osteoporosis Kidney stone ETHEL (generalized anxiety disorder) Chronic idiopathic constipation MDD (major depressive disorder) DM2 (diabetes mellitus, type 2) Obesity Pulmonary embolus (HCC) HTN (hypertension) HLD (hyperlipidemia) Adenomatous colon polyp IBS (irritable bowel syndrome) Iron deficiency anemia Thyroid disease Heart disease Emphysema of lung Arthritis Menstrual problem started 1964 which l ead to hysterectomy in 1981 Infection PONV (postoperative nausea a nd vomiting) Hypothyroidism Syncope Cataract Iron deficiency anemia Family History Medical History Relation Name Comments Cancer Brother Tu Hypertension Brother Tu Prostate cancer Brother Tu Anemia Daughter 1 Lilly Arthritis Daughter 1 Lilly Asthma Daughter 1 Lilly Depression Daughter 1 Lilly Obesity Daughter 1 Lilly Rashes / Skin problems Daughter 1 Lilly Vision loss Daughter 1 Lilly Arthritis Daughter 2 Tavia Depression Daughter 2 Tavia Drug abuse Daughter 2 Tavia Early Daughter 2 Tavia Heart attack Daughter 2 Tavia Obesity Daughter 2 Tavia Alcohol abuse Father Tu Quiroz Diabetes Father Tu Quiroz Hypertension Father Tu Quiroz Obesity Maternal Grandfather Km Clotting disorder Maternal Grandmother Teena Ingersol l Diabetes Maternal Grandmother Teena Deshaun Obesity Maternal Grandmother Teena Deshaun Blood Clot Mother Chiqui Lackey Quiroz Clotting disorder Mother Chiqui Lackey Quiroz Diabetes Mother Chiqui Lackey Quiroz Heart attack Mother Chiqui Lackey Quiroz Heart disease Mother Chiqui Lackey Quiroz Hypertension Mother Chiqui Lackey Quiroz Obesity Mother Chiqui Lackey Quiroz Stroke Mother Chiuqi Lackey Quiroz Diabetes Other 1 Family history of Diabetes mellitus; Other Other 2 Family history of Blood clots, legs; Other Other 3 Family history of Heart attak before age 65; Stroke Other 4 Family history of Stroke; Other Other 5 Family history of Psoriatic arthritis; Other Other 6 Family history of Hip Dysplasia; Other Other 7 Family history of Degenerative Disc Disease; Asthma Paternal Grandmother Tracy Quiroz COPD Paternal Grandmother Tracy Quiroz Relation Name Status Comments Brother Tu Alive Daughter 1 Lilly Daughter 2 Tavia Father Tu Quiroz Maternal Grandfather Km Maternal Grandmother Teena Meade Mother Chiqui Quiroz Other 1 Other 2 Other 3 Other 4 Other 5 Other 6 Other 7 Paternal Grandmother Tracy Quiroz Social History Tobacco Use Types Packs/Day Years Used Date Smoking Tobacco: Never Smokeless Tobacco: Never Tobacco Cessation:Counseling Given: Not Answered Alcohol Use Standard Drinks/Week Comments Not Currently [...] often do you attend chur ch or religion services? More than 4 times per year [...] staff should administer the PHQ-9) 0 11/18/2024 [facility] of Occupat ional Health - Occupational Stress [...] any time in the past 12 m [facility], were you homeless or living in a senior care (including now)? No 09/10/2024 Social Connection and Isolation Panel Answer Date Recorded In a typical week, how many times do you talk on the phone with family, friends, or neighbors? Three times a week 02/19/2025 How often do you get togethe r with friends or relatives? Once a week 02/19/2025 How often do you attend chur ch or religion services? More than 4 times per year [...] any time in the past 12 m [facility], were you homeless or living in a senior care (including now)? No 02/19/2025 [facility] Utilities Answer Date Recorded In the past 12 months has th e electric, gas, oil, or water company [...] on file Legal Sex Female 8:47 PM SKIDWAY WORKER Gender Identity Not on file Sexual Orientation Not on file Occupation Industry Job Start Date Job End Date retired Not on file Not on file Not on file Obstetrics History Para Term AB IAB SAB Ectopic Multiple Livin g Live Births 2 2 2 Date Outcome GA Total Labor Labor/2nd/3rd Weight Sex Type Anes PTL Mariama A1 A5 Name Clin Term Term Last Filed Vital Signs Vital Sign Reading Time Taken Comments Blood Pressure 157/62 03/25/2025 2:05 PM SKIDWAY WORKER Pulse 79 03/25/2025 2:05 PM SKIDWAY WORKER Temperature 36.3 C (97.3 F) 03/25/2025 2:05 PM SKIDWAY WORKER Respiratory Rate 20 03/25/2025 2:05 PM SKIDWAY WORKER Oxygen Saturation 94% 03/25/2025 2:05 PM SKIDWAY WORKER Inhaled Oxygen Concentration - - Weight 84.1 kg (185 lb 6.4 oz) 03/25/2025 2:05 P M SKIDWAY WORKER Height 165.1 cm (5' 5) 03/27/2025 1:12 PM SKIDWAY WORKER Body Mass Index 30.85 03/25/2025 2:05 PM SKIDWAY WORKER Plan of Treatment Health Maintenance Due Date Last Done Comments Hepatitis B Screening 1968 Zoster Vaccine (2 of 3) 08/24/2015 06/29/2015 Foot Exam 09/22/2023 09/21/2022, 12/09, 01/03/2020, Additional history exists Covid-19 Vaccine ( season) 2024 02/02/2023, 01/03/2023, 01/06/2022, Additional history exists Influenza Vaccine (#1) 2024 , 02/02/2023, 01/03/2023, Additional history exists Well Visit 65+ 02/08/2025 02/09/2024, 01/09, 12/22/2021, Additional history exists Hemoglobin A1C 07/21/2025 01/20/2025, 08/09, 02/02/2024, Additional history exists Depression Screening 11/18/2025 11/18/2024, 08/29/2024, 08/08/2024, Additional history exists Albumin Creatinine Ratio, Urine 12/17/2025 12/17/2024, 10/06/2023, 09/14/2022, Additional history exists Fall Risk Assessment 02/19/2026 02/19/2025, 11/18/2024, 08/29/2024, Additional history exists Lipid Panel 03/27/2026 03/27/2025, 08/09, 02/02/2024, Additional history exists eGFR 03/27/2026 03/27/2025, 02/08, 02/12/2025, Additional history exists Dilated Eye Exam 08/13/2026 08/13/2024, 05/2023, 07/28/2022, Additional history exists Osteoporosis Screening-Bone Density Scan 09/26/2026 09/26/2024, 07/02/2021, 05/08/2019, Additional history exists DTaP/Tdap/Td Vaccine (2 - Td or Tdap) 04/18/2029 04/18/2019 Pneumococcal vaccine 65+ Completed 019, 05/03/2017, 04/10/2016, Additional history exists Breast Cancer Screening-Mammogram Discontinued 07/26/2024, 10/05/2023, 09/20/2022, Additional history exists Hepatitis C Screening Completed 08/22/2024, 024 Colon Cancer Screening-CT Colonography Discontinued 10/23/2024, 08/02/2023, 03/03/2020, Additional history exists Colon Cancer Screening-Colonoscopy Discontinued 10/23/2024, 08/02/2023, 03/03/2020, Additional history exists Colon Cancer Screening-DNA Stool Discontinued 10/23/2024, 08/02/2023, 03/03/2020, Additional history exists Colon Cancer Screening-FIT Discontinued 10/23, 08/02/2023, 03/03/2020, Additional history exists Colon Cancer Screening-FOBT Discontinued 10/08, 08/02/2023, 03/03/2020, Additional history exists Colon Cancer Screening-Sigmoidoscopy Discontinued 10/23/2024, 08/02/2023, 03/03/2020, Additional history exists Colorectal Cancer Screening Discontinued Goals Goal Patient Goal Type Associated Problems [...] SW if appropriate and patient is agreeable. Medical Devices Implanted Type Area Rubber Stamp Assembler Device Identifier Shelf Expiration Date Model / Serial / Lot Bard Peripheral Vascular [id number] Ultraclip Bard 17ga 12cm 2 Trigger Permanent Ultrasound - [id number] - [id number] Implanted:Qty: 1 on 03/02/2020 by Juan Davis MD at [facility] Breast Right: Breast Bard Peripheral Vascular 05/07/2022 [id number] / [id number] Medium Arthroscopic Bioinductive Implant (1) Implanted:Qty: 1 on 10/04/2017 by Ehsan Sabillon MD at [facility] Right: Shoulder [employer] c1713 08/08/2019 2169-2 / / [id number] 2503-A Bone Anchors (3) Implanted:Qty: 1 on 10/04/2017 by Ehsan Sabillon MD at [facility] Right: Shoulder [employer] c1713 07/04/2018 2503-A / / [id number] 2504-1 Tendon Anchors (8) Implanted:Qty: 1 on 10/04/2017 by Ehsan Sabillon MD at [facility] Right: Shoulder [employer] c1773 07/19/2018 2504-1 / / [id number] [employer] Head Humeral Shoulder Reverse Offset Rsp -4x32mm [place] Chromium 508-32-103 - [id number] Implanted:Qty: 1 on 02/18/2025 by Ishan Gutiérrez MD at [facility] Left: Shoulder [employer] [id number] 10/01/2030 508-32-1 [id number] A [employer] Stem Humeral Shoulder Reverse Primary Altivate [id number] Titanium 533-10-108 - [id number] Implanted:Qty: 1 on 02/18/2025 by Ishan Gutiérrez MD at [facility] Left: Shoulder [employer] 12/02/2030 533-10-1 08 / / [id number] [employer] Insert Humeral Socket Small Shell Semi Constrained Altivate Reverse 32mm Polyethylene 509-03-032 - [id number] Implanted:Qty: 1 on 02/18/2025 by Ishan Gutiérrez MD at [facility] Left: Shoulder [employer] 07/30/2029 509-03-0 32 / / [id number] [employer] Suture Fiberwire 2-0 38in Blue Non Absorbable Ar-7200b - [id number] Implanted:Qty: 2 on 02/18/2025 by Ishan Gutiérrez MD at [facility] Left: Shoulder [employer] [id number] 08/08/2027 AR-7200B / / [id number] [employer] Baseplate Glenoid Rsp 30mm Titanium 508-32-204 - [id number] Implanted:Qty: 1 on 02/18/2025 by Ishan Gutiérrez MD at [facility] Left: Shoulder [employer] [id number] 01/10/2031 508-32-2 04 / / [id number] [employer] Screw Glenoid Locking Rsp 5.0x18mm Titanium 506-03-118 - [id number] Implanted:Qty: 1 on 02/18/2025 by Ishan Gutiérrez MD at [facility] Left: Shoulder [employer] 01/01/2031 506-03-1 18 / / [id number] [employer] Screw Glenoid Locking Rsp 5.0x18mm Titanium 506-03-118 - [id number] Implanted:Qty: 1 on 02/18/2025 by Ishan Gutiérrez MD at [facility] Left: Shoulder [employer] 07/17/2030 506-03-1 18 / / [id number] [employer] Screw Glenoid Locking Rsp 5.0x26mm Titanium 506-03-126 - [id number] Implanted:Qty: 1 on 02/18/2025 by Ishan Gutiérrez MD at [facility] Left: Shoulder [employer] 10/16/2030 506-03-1 [id number] [employer] Screw Glenoid Locking Rsp 5.0x26mm Titanium 506-03-126 - [id number] Implanted:Qty: 1 on 02/18/2025 by Ishan Gutiérrez MD at [facility] Left: Shoulder [employer] 01/02/2031 506-03-1 [id number] Procedures Procedure Name Priority Date/Time Associated Diagnosis Comments XR SHOULDER LEFT 2 OR MORE VIEWS Schedule Routine, Read Routine (OP Routine) 03/30/2025 10:47 AM SKIDWAY WORKER S/P reverse total shoulder arthroplasty, left LIPID PANEL Routine 03/27/2025 11:30 AM SKIDWAY WORKER Medicare annual wellness visit, subsequent Encounter for lipid screening for cardiovascular disease EGFR Routine 03/27/2025 11:28 AM SKIDWAY WORKER Controlled type 2 diabetes mellitus without complication, without long-term current use of insulin History of gastric bypass Other specified intestinal malabsorption Class 3 severe obesity with serious comorbidity in adult, unspecified BMI, unspecified obesity type THYROID FUNCTION CASCADE Routine 03/27/2025 11:28 AM SKIDWAY WORKER Controlled type 2 diabetes mellitus without complication, without long-term current use of insulin History of gastric bypass Other specified intestinal malabsorption Class 3 severe obesity with serious comorbidity in adult, unspecified BMI, unspecified obesity type VITAMIN B12 Routine 03/27/2025 11:28 AM SKIDWAY WORKER Controlled type 2 diabetes mellitus without complication, without long-term current use of insulin History of gastric bypass Other specified intestinal malabsorption Class 3 severe obesity with serious comorbidity in adult, unspecified BMI, unspecified obesity type VITAMIN D 25 HYDROXY Routine 03/27/2025 11:28 AM SKIDWAY WORKER Controlled type 2 diabetes mellitus without complication, without long-term current use of insulin History of gastric bypass Other specified intestinal malabsorption Class 3 severe obesity with serious comorbidity in adult, unspecified BMI, unspecified obesity type FOLATE Routine 03/27/2025 11:28 AM SKIDWAY WORKER Controlled type 2 diabetes mellitus without complication, without long-term current use of insulin History of gastric bypass Other specified intestinal malabsorption Class 3 severe obesity with serious comorbidity in adult, unspecified BMI, unspecified obesity type COPPER, SERUM Routine 03/27/2025 11:28 AM SKIDWAY WORKER Controlled type 2 diabetes mellitus without complication, without long-term current use of insulin History of gastric bypass Other specified intestinal malabsorption Class 3 severe obesity with serious comorbidity in adult, unspecified BMI, unspecified obesity type COMPREHENSIVE METABOLIC PANEL Routine 03/27/2025 11:28 AM SKIDWAY WORKER Controlled type 2 diabetes mellitus without complication, without long-term current use of insulin History of gastric bypass Other specified intestinal malabsorption Class 3 severe obesity with serious comorbidity in adult, unspecified BMI, unspecified obesity type DIFFERENTIAL AUTO Routine 03/25/2025 1:5 5 PM SKIDWAY WORKER Iron deficiency anemia secondary to inadequate dietary iron intake CBC WITH AUTO DIFFERENTIAL Routine 03/25/2025 1:55 PM SKIDWAY WORKER Iron deficiency anemia secondary to inadequate dietary iron intake FERRITIN Routine 03/25/2025 1:55 PM SKIDWAY WORKER Iron deficiency anemia secondary to inadequate dietary iron intake IRON PROFILE W/ IBC Routine 03/25/2025 1 :55 PM SKIDWAY WORKER Iron deficiency anemia secondary to inadequate dietary iron intake PROTIME-INR Routine 03/14/2025 1:13 PM SKIDWAY WORKER XR SHOULDER LEFT 2 OR MORE VIEWS Schedule Routine, Read Routine (OP Routine) 03/05/2025 5:37 PM SKIDWAY WORKER S/P reverse total shoulder arthroplasty, left POCT GLUCOSE DEVICE Routine 02/19/2025 11:34 AM SKIDWAY WORKER EGFR Routine 02/19/2025 6:15 AM SKIDWAY WORKER DIFFERENTIAL AUTO Routine 02/19/2025 6:1 5 AM SKIDWAY WORKER BASIC METABOLIC PANEL Routine 02/19/2025 6:15 AM SKIDWAY WORKER CBC WITH AUTO DIFFERENTIAL Routine 02/19/2025 6:15 AM SKIDWAY WORKER POCT GLUCOSE DEVICE Routine 02/19/2025 6 :12 AM SKIDWAY WORKER POCT GLUCOSE DEVICE Routine 02/18/2025 8 :36 PM SKIDWAY WORKER POCT GLUCOSE DEVICE Routine 02/18/2025 5 :43 PM SKIDWAY WORKER SURGICAL PATHOLOGY Routine 02/18/2025 3: 56 PM SKIDWAY WORKER Arthritis of left shoulder region XR SHOULDER LEFT 2 OR MORE VIEWS IP Routine 02/18/2025 2:53 PM SKIDWAY WORKER POCT GLUCOSE DEVICE Routine 02/18/2025 1 :37 PM SKIDWAY WORKER POCT GLUCOSE DEVICE Routine 02/18/2025 11:32 AM SKIDWAY WORKER CLINICAL PATHOLOGY REPORT Routine 02/18/2025 11:31 AM SKIDWAY WORKER PREPARE RBC STAT 02/18/2025 11:17 AM SKIDWAY WORKER KS AN ELECTIVE ENDOTRACHEAL AIRWAY Routine 02/18/2025 11:02 AM SKIDWAY WORKER ARTHROPLASTY SHOULDER - REVERSE TOTAL 02/18/2025 10:33 AM SKIDWAY WORKER Arthritis of left shoulder region ANESTHESIA PERIPHERAL BLOCK Routine 02/18/2025 10:31 AM SKIDWAY WORKER POCUS INJ OCCIPITAL NERVE IP Routine 02/18/2025 9:42 AM SKIDWAY WORKER ANTIBODY IDENTIFICATION Timed 02/18/2025 9:22 AM SKIDWAY WORKER TYPE AND SCREEN Timed 02/18/2025 9:22 AM SKIDWAY WORKER PROTIME-INR STAT 02/18/2025 9:22 AM SKIDWAY WORKER POCT GLUCOSE DEVICE Routine 02/18/2025 8 :56 AM SKIDWAY WORKER CLINICAL PATHOLOGY REPORT Routine 02/12/2025 1:57 PM SKIDWAY WORKER B K ANTIGEN TYPE Routine 02/12/2025 1:57 PM SKIDWAY WORKER ANTIBODY IDENTIFICATION Routine 02/12/2025 1:57 PM SKIDWAY WORKER EGFR Routine 02/12/2025 1:57 PM SKIDWAY WORKER Pre-op testing DIFFERENTIAL AUTO Routine 02/12/2025 1:5 7 PM SKIDWAY WORKER Pre-op testing BASIC METABOLIC PANEL Routine 02/12/2025 1:57 PM SKIDWAY WORKER Pre-op testing CBC WITH AUTO DIFFERENTIAL Routine 02/12/2025 1:57 PM SKIDWAY WORKER Pre-op testing TYPE AND SCREEN Routine 02/12/2025 1:57 PM SKIDWAY WORKER Pre-op testing CT SHOULDER LEFT WO CONTRAST Schedule Routine, Read Routine (OP Routine) 01/24/2025 1:29 PM CDT Arthritis of left shoulder XR SHOULDER LEFT 2 OR MORE VIEWS Schedule Routine, Read Routine (OP Routine) 01/21/2025 12:02 PM CDT Left shoulder pain, unspecified chronicity VITAMIN D 25 HYDROXY Routine 01/20/2025 2:30 PM CDT Left shoulder pain, unspecified chronicity Vitamin D deficiency HEMOGLOBIN A1C Routine 01/20/2025 2:30 PM CDT Left shoulder pain, unspecified chronicity Hypoglycemia URINALYSIS, MICROSCOPIC ONLY Routine 01/09/2025 11:52 AM CDT Dysuria URINALYSIS AND REFLEX TO MICROSCOPIC AND CULTURE Routine 01/09/2025 11:52 AM CDT Dysuria ALBUMIN CREATININE RATIO, URINE Routine 12/17/2024 2:48 PM CDT Diabetes mellitus type II, controlled COLONOSCOPY 10/23/2024 9:48 AM CDT DEXA AXIAL SKELETON BONE DENSITY 1 OR MORE SITES Schedule Routine, Read Routine (OP Routine) 09/26/2024 11:03 AM CDT Asymptomatic menopausal state HEPATITIS PANEL, ACUTE Routine 08/22/2024 4:46 AM CDT DIABETIC EYE EXAM Routine 08/13/2024 DIAGNOSTIC MAMMOGRAM BILATERAL W SANTOSH Schedule Routine, Read Routine (OP Routine) 07/26/2024 1:04 PM CDT Abnormal mammogram HM DIABETES FOOT EXAM Routine 08/01/2016 from Last 3 Months or Most Recently Relevant to Health Maintenance Results * XR Shoulder Left 4 Views (03/30/2025 10:47 AM SKIDWAY WORKER) Anatomical Region Laterality Modality Upper Extremities, Shoulder Left Comp uted Radiography Narrative 03/30/2025 10:47 AM SKIDWAY WORKER XR 4 view left shoulder demonstrates reduced reverse shoulder arthroplasty in acceptable position without signs of loosening or failure us Ishan Gutiérrez MD IMG XR PROCEDURES Final Resul t * Lipid panel (03/27/2025 11:30 AM SKIDWAY WORKER) Cholesterol 185 30 - 199 mg/dL Comment: Interpretive Data Ages < or = 19 years Acceptable: <170 mg/dL Borderline high: 170-199 mg/dL High: >or= 200 mg/dL Ages > or = 20 years Desirable: <200 mg/dL Borderline high: 200-239 mg/dL High: >or= 240 mg/dL Literature References: 1. Expert Panel on Integrated Guidelines for Cardiovascular Health and Risk Reduction in Children and Adolescents. Pediatrics 2011;128:S213 2. NCEP Expert Panel. Circulation 2004;110:227 Current Interpretive Data was last revised on 2017. Testing performed by: [facility], [address] [place] [address]., [address] Triglycerides 82 <=149 mg/dL [facility]OSTER (VIRAL) Comment: Interpretive Data Ages < or = 9 years Acceptable: <75 mg/dL Borderline high: 75-99 mg/dL High: >or= 100 mg/dL Ages 10 to 20 years Acceptable: <90 mg/dL Borderline high: 90-129 mg/dL High: >or= 130 mg/dL Ages > or = 20 years Desirable: <150 mg/dL Borderline high: 150-199 mg/dL High: 200-499 mg/dL Very high: >or= 499 mg/dL Literature References: 1. Expert Panel on Integrated Guidelines for Cardiovascular Health and Risk Reduction in Children and Adolescents. Pediatrics 2011;128:S213 2. NCEP Expert Panel. Circulation 2004;110:227 Current Interpretive Data was last revised on 2017. Testing performed by: [facility], [address] [place] [address]., [address] HDL 90 >=40 mg/dL [facility] Martinez (VIRAL) Comment: Interpretive Data Ages < or = 19 years Acceptable: >45 mg/dL Borderline low: 40-45 mg/dL Low: <40 mg/dL Ages > or = 20 years Desirable: >or= 60 mg/dL Low: <40 mg/dL Literature References: 1. Expert Panel on Integrated Guidelines for Cardiovascular Health and Risk Reduction in Children and Adolescents. Pediatrics 2011;128:S213 2. NCEP Expert Panel. Circulation 2004;110:227 Current Interpretive Data was last revised on 2017. Testing performed by: [facility], [address] [place] [address]., [address] LDL, calculated 80 <=129 mg/dL SCOTT FOSTER (VIRAL) Comment: Interpretive Data Ages < or = 19 years Acceptable: <110 mg/dL Borderline high: 110-129 mg/dL High: >or= 130 mg/dL Ages > or = 20 years Optimal: <100 mg/dL Near optimal: 100-129 mg/dL Borderline high: 130-159 mg/dL High: >160 mg/dL Calculated using the Villegas LDL-C estimating equation. This equation was implemented on 2023. Prior to this date LDL-C was estimated using the Friedewald equation. Literature References: 1. Expert Panel on Integrated Guidelines for Cardiovascular Health and Risk Reduction in Children and Adolescents. Pediatrics 2011;128:S213 2. NCEP Expert Panel. Circulation 2004;110:227 3. Bakari M et al. GABINO Cardiol. 2020 August 08;5(5):540-548. doi: 10.1001/[email or web address].2020.0013 Current Interpretive Data was last revised on 2023. Testing performed by: [address] [address] Non-HDL Cholesterol 95 mg/dL SCOTT FOSTER (VIRAL) Comment: Interpretive Data Ages < or = 19 years Acceptable: <120 mg/dL Borderline high: 120-144 mg/dL High: >145 mg/dL Ages > or = 20 years When triglycerides are >200 mg/dL, Non-HDL cholesterol is a secondary target of therapy with treatment goals that are 30 mg/dL greater than the LDL cholesterol target. Literature References: 1. Expert Panel on Integrated Guidelines for Cardiovascular Health and Risk Reduction in Children and Adolescents. Pediatrics 2011;128:S213 2. NCEP Expert Panel. Circulation 2004;110:227 Current Interpretive Data was last revised on 2017. Testing performed by: [facility], [address] [place] [address]., [address] Chol/HDL ratio 2 ROGELIO FOSTER (VIRAL) Comment:Testing performed by : [address] [address] Blood 03/27/2025 11:3 0 AM SKIDWAY WORKER 03/27/2025 5:30 PM SKIDWAY WORKER us Dariana Caceres NP LAB BLOOD ORDERABLES Final Re sult SCOTT FOSTER (VIRAL) 1 [facility] Department of Laboratories [place], [place] [id number] * eGFR (03/27/2025 11:28 AM SKIDWAY WORKER) eGFR 74 >=60 mL/min/1. 73 m2 Comment: Interpretive Data Reference Interval Normal >/= 90 mL/min/1.73m2 Mildly decreased* 60 - 89 mL/min/1.73m2 Mildly to moderately decreased 45 - 59 mL/min/1.73m2 Moderately to severely decreased 30 - 44 mL/min/1.73m2 Severely decreased 15 - 29 mL/min/1.73m2 Kidney Failure < 15 mL/min/1.73m2 *Relative to young adult level Estimated glomerular filtration rate is determined by the 2020 CKD-EPI equation recommended by the National Kidney Foundation (A Unifying Approach to GFR Estimation: Recommendations of the NKF-ASK Task Force on Reassessing the Inclusion of Race in Diagnosing Kidney Disease, JASN 2020). The CKD-EPI equation should not be used for patients with unstable renal function and has not been validated in children and those over 70. Current interpretive data was last reviewed 2021. Testing performed by: [facility], [address] [place] [address], [address] Blood 03/27/2025 11:2 8 AM SKIDWAY WORKER 03/27/2025 5:44 PM SKIDWAY WORKER Meera Coffey MD LAB BLOOD ORDERABLES Fin al Result Performing Organization Address City/[facility]/ZIP Co de Phone Number [facility] ([employer]) [address] [place] [address] [place] [address] * Thyroid Function [place] (03/27/2025 11:28 AM SKIDWAY WORKER) TSH 1.99 0.30 - 4.20 mcIUnit/mL Comment:Testing performed by : [facility], [address] [place] [address], [id number] Blood 03/27/2025 11:2 8 AM SKIDWAY WORKER 03/27/2025 5:19 PM SKIDWAY WORKER Meera Coffey MD LAB BLOOD ORDERABLES Fin al Result [facility] ([employer]) 1 [facility] [place] [address] * Copper, serum (03/27/2025 11:28 AM SKIDWAY WORKER) Copper 122 77 - 206 mcg/dL [facility] Comment: ADDITIONAL INFORMATION This test was developed and its performance characteristics determined by [facility] in a manner consistent with CLIA requirements. This test has not been cleared or approved by the U.S. Food and Drug Administration. Test Performed by: [facility] [address] [place] [address] Slicing Machine Tender: Leroy Holland Ph.D.; CLIA# [id number] Testing performed by: [address], [address] Blood 03/27/2025 11:2 8 AM SKIDWAY WORKER 03/27/2025 5:19 PM SKIDWAY WORKER Meera Coffey MD LAB BLOOD ORDERABLES Fin al Result Performing Organization Address [facility] Co de Phone Number [facility] ([employer]) [address] [place] [address] [place] [address] [facility] * Vitamin D 25 hydroxy (03/27/2025 11:28 AM SKIDWAY WORKER) Vitamin D 25-OH 31 30 - 80 ng/mL Comment:Testing performed by : [address], [address] Blood 03/27/2025 11:2 8 AM SKIDWAY WORKER 03/27/2025 5:19 PM SKIDWAY WORKER Meera Coffey MD LAB BLOOD ORDERABLES Fin al Result Performing Organization Address [facility]/ZIP Co de Phone Number [facility] ([facility]) 1 [facility] [place] [address] * Folate (03/27/2025 11:28 AM SKIDWAY WORKER) Folic acid 17.6 >=5.0 ng/mL Comment: Hemolysis present. Results may be affected. Testing performed by: [address], [address] Blood 03/27/2025 11:2 8 AM SKIDWAY WORKER 03/27/2025 5:19 PM SKIDWAY WORKER Meera Coffey MD LAB BLOOD ORDERABLES Fin al Result [facility] FOST[facility] (VIRAL) 1 [place] [address] * Vitamin B12 (03/27/2025 11:28 AM SKIDWAY WORKER) Pathologist [facility] Vitamin B12 275 230 - 1,250 pg/mL Comment:Testing performed by : [facility], [address] [place] [address], [address] Blood 03/27/2025 11:2 8 AM SKIDWAY WORKER 03/27/2025 5:19 PM SKIDWAY WORKER Meera Coffey MD LAB BLOOD ORDERABLES Fin al Result Performing Organization Address [facility] de Phone Number SCOTT FOSTER ([employer]) 1 [facility] [place] [address] * (ABNORMAL) Comprehensive metabolic panel (03/27/2025 11:28 AM SKIDWAY WORKER) Pathologist [facility] Sodium 144 135 - 145 mmol/L Comment:Testing performed by : [facility], [address] [place] [address]., [address] Potassium, pl 3.5 3.3 - 4.9 mmol/L [facility] ([facility]) Comment:Testing performed by : [facility], [address] [place] [address], [address] Chloride 107 97 - 110 mmol/L [facility] ([facility]IR[facility]) Comment:Testing performed by : [facility], [address] [place] [address]., [address] CO2 26 22 - 32 mmol/L [facility] ([facility]) Comment:Testing performed by : [address], [address] Anion gap 11 2 - 15 mmol/L [facility] ([facility]) Comment:Testing performed by : [address], [address] BUN 21 6 - 25 mg/dL [facility] ([facility]) Comment:Testing performed by : [address] [address] Creatinine 0.82 0.60 - 1.10 mg/dL [facility] ([facility]IR[facility]) Comment:Testing performed by : [address] [address] Glucose 132 70 - 199 mg/dL [facility] ([facility]IR[facility]) Comment: Interpretive Data Fasting glucose >/= 126 mg/dl is diagnostic for diabetes. Fasting is defined as no caloric intake for at least 8 hours. Fasting glucose between 100 mg/dl to 125 mg/dl is diagnostic of prediabetes. In a patient with classic symptoms of hyperglycemia or hyperglycemic crisis, a random glucose >/= 200 mg/dl is diagnostic for diabetes. In the absence of unequivocal hyperglycemia, results should be confirmed by repeat testing. The classification and Diagnosis of Diabetes Diabetes Care 2021; 46: S19-S40. Current interpretive data was last revised 2022. Testing performed by: [address], [address] Calcium 9.0 8.5 - 10.3 mg/dL [facility] ([facility]IR[facility]) Comment:Testing performed by : [address], [address] Bilirubin, total 0.3 0.1 - 1.2 mg/dL [facility] ([facility]IR[facility]) Comment:Testing performed by : [address], [address] Protein, pl 6.8 6.5 - 8.5 g/dL [facility] ([facility]IR[facility]) Comment:Testing performed by : [address], [address] Albumin 4.2 3.5 - 5.0 g/dL [facility] ([facility]IRAL) Comment:Testing performed by : [address], [address] Alk phos 150(H) 40 - 130 Units/L [facility] ([facility]IR[facility]) Comment:Testing performed by : [address], [address] ALT 24 7 - 45 Units/L [facility] ([facility]IRAL) Comment:Testing performed by : [address], [address] AST 33 10 - 45 Units/L [facility] (VIRAL) Comment:Testing performed by : [facility], [address] [place] [address], [place]., [address] Blood 03/27/2025 11:2 8 AM SKIDWAY WORKER 03/27/2025 5:19 PM SKIDWAY WORKER us Meera Coffey MD LAB BLOOD ORDERABLES Fin al Result [facility]) 1 [facility] [place] [address] * Differential, auto (03/25/2025 1:55 PM SKIDWAY WORKER) Neutrophil abs 2.56 1.50 - 6.50 K/cumm [facility] ([facility]) Comment:Testing performed by : [facility] [address], Medical Office [facility] [address], [place] [address] Imm gran abs 0.00 0.00 - 0.10 K/cumm [facility] ([employer]) Comment:Testing performed by : [facility] [address], Medical Office [facility] [address], [place] [address] Lymphocyte abs 1.20 0.80 - 3.30 K/cumm [facility] ([facility]) Comment:Testing performed by : [facility] [address], Medical Office [facility] [address], [place] [address] Monocyte abs 0.33 0.20 - 0.80 K/cumm [facility] ([employer]) Comment:Testing performed by : [facility] [address], Medical Office [facility] [address], [place] [address] Eosinophil abs 0.16 0.00 - 0.50 K/cumm [facility] ([facility]) Comment:Testing performed by : [facility] [address], Medical Office [facility] [address], [place] [address] Basophil abs 0.02 0.00 - 0.10 K/cumm [facility] ([facility]) Comment:Testing performed by : [facility] [address], Medical Office [facility] [address], [place] [address] Neutrophil pct 60.0 % [facility] ([facility]IR[facility]) Comment: Interpretive Data Percent cell count reference ranges are not reported, since discordance with absolute values may lead to misinterpretation of CBC data. Current Interpretive Data was last revised on 2022. Testing performed by: [facility] [address], Medical Office [address], [place] [address] Imm gran pct 0.0 % [facility] ([facility]IR[facility]) Comment: Interpretive Data Percent cell count reference ranges are not reported, since discordance with absolute values may lead to misinterpretation of CBC data. Current Interpretive Data was last revised on 2022. Testing performed by: [facility] [address], Medical Office [facility] [address], [place] [address] Lymphocyte pct 28.1 % [facility] ([facility]IR[facility]) Comment: Interpretive Data Percent cell count reference ranges are not reported, since discordance with absolute values may lead to misinterpretation of CBC data. Current Interpretive Data was last revised on 2022. Testing performed by: [facility] [address], Medical Office [facility] [address], [place] [address] Monocyte pct 7.7 % [facility] ([facility]IR[facility]) Comment: Interpretive Data Percent cell count reference ranges are not reported, since discordance with absolute values may lead to misinterpretation of CBC data. Current Interpretive Data was last revised on 2022. Testing performed by: [facility] [address], Medical Office [facility] [address], [place] [address] Eosinophil pct 3.7 % [facility] ([facility]IR[facility]) Comment: Interpretive Data Percent cell count reference ranges are not reported, since discordance with absolute values may lead to misinterpretation of CBC data. Current Interpretive Data was last revised on 2022. Testing performed by: [facility] [address], Medical Office [facility] [address], [place] [address] Basophil pct 0.5 % [facility] ([facility]IRAL) Comment: Interpretive Data Percent cell count reference ranges are not reported, since discordance with absolute values may lead to misinterpretation of CBC data. Current Interpretive Data was last revised on 2022. Testing performed by: [facility] [address], Medical Office [facility] [address] [address], [place] [address] Blood 03/25/2025 1:55 PM SKIDWAY WORKER 03/25/2025 1:56 PM SKIDWAY WORKER Marita Ochoa DIRECTOR OF IT OPERATIONS LAB BLOOD ORDERABLES Final Result Performing Organization Address [facility] Co de Phone Number SCOTT FOSTER ([employer]) 1 [facility] Department [place] [address] * Iron profile w/ IBC (03/25/2025 1:55 PM SKIDWAY WORKER) Iron 106 35 - 145 mcg/dL Comment:Testing performed by : [place], [address] TIBC 321 250 - 400 mcg/dL SCOTT FOSTER (VIRAL) Comment:Testing performed by : [place], [address] Transferrin saturation 33 20 - 50 % SCOTT FOSTER (VIRAL) Comment:Testing performed by : [facility], [place], [address] Blood 03/25/2025 1:55 PM SKIDWAY WORKER 03/25/2025 2:43 PM SKIDWAY WORKER us Marita Ochoa DIRECTOR OF IT OPERATIONS LAB BLOOD ORDERABLES Final Result Performing Organization Address [facility] Co de Phone Number SCOTT FOSTER ([employer] 1 [facility] Department [place] [address] * (ABNORMAL) CBC with auto differential (03/25/2025 1:55 PM SKIDWAY WORKER) WBC 4.27 3.80 - 9.90 K/cumm SCOTT FOSTER (VIRAL) Comment:Testing performed by : [facility] [address], Medical Office [facility] [address], [place] [address] Hgb 12.4 11.9 - 15.5 g/dL SCOTT FOSTER (VIRAL) Comment:Testing performed by : [facility] [address], Medical Office [facility] [address], [place] [address] Hct 39.0 35.6 - 45.5 % [facility] (VIRAL) Comment:Testing performed by : [facility] [address], Medical Office [facility] [address], [place] [address] Plt 169 150 - 400 K/cumm [facility] (VIRAL) Comment:Testing performed by : [facility] [address], Medical Office [facility] [address], [place] [address] MPV 9.2 9.1 - 12.3 fL [facility] (VIRAL) Comment:Testing performed by : [facility] [address], Medical Office [facility] [address], [place] [address] RBC 3.98 3.90 - 5.20 M/cumm [facility] (VIRAL) Comment:Testing performed by : [facility] [address], Medical Office [facility] [address], [place] [address] MCV 98.0(H) 81.3 - 96.4 fL [facility] (VIRAL) Comment:Testing performed by : [facility] [address], Medical Office [facility] [address], [place] [address] MCH 31.2 27.1 - 33.3 pg [facility] (VIRAL) Comment:Testing performed by : [facility] [address], Medical Office [facility] [address], [place] [address] MCHC 31.8(L) 32.3 - 35.7 g/dL [facility] (VIRAL) Comment:Testing performed by : [facility] [address], Medical Office [facility] B [facility] [address], [place] [address] RDW CV 13.7 11.1 - 14.9 % [facility] (VIRAL) Comment:Testing performed by : [facility] [address], Medical Office [facility] [address], [place] [address] RDW SD 50.0(H) 35.7 - 48.1 fL [facility] (VIRAL) Comment:Testing performed by : [facility] [address], Medical Office [facility] [address], [place] [address] Blood 03/25/2025 1:55 PM SKIDWAY WORKER 03/25/2025 1:56 PM SKIDWAY WORKER us Marita Ochoa DIRECTOR OF IT OPERATIONS LAB BLOOD ORDERABLES Final Result Performing Organization Address City/[facility]/ZIP Co de Phone Number SCOTT FOSTER ([employer]) [address] [place] [address] Department [place] [address] * Ferritin (03/25/2025 1:55 PM SKIDWAY WORKER) Ferritin 87 13 - 150 ng/mL Comment:Testing performed by : [facility], One [facility], [place], [address] Blood 03/25/2025 1:55 PM SKIDWAY WORKER 03/25/2025 2:43 PM SKIDWAY WORKER us Marita Ochoa DIRECTOR OF IT OPERATIONS LAB BLOOD ORDERABLES Final Result Performing Organization Address [facility] Co de Phone Number SCOTT FOSTER ([employer] 1 [facility] Department [place] [address] * (ABNORMAL) Protime-INR (03/14/2025 1:13 PM SKIDWAY WORKER) INR 1.50(A) 0.90 - 1.10 EXTERNAL LAB Blood 03/14/2025 1:13 PM SKIDWAY WORKER us Morris Casas MD LAB BLOOD ORDERABLES Wendy l Result Performing Organization Address [facility] Co de Phone Number EXTERNAL LAB * XR Shoulder Left 2 or More Views (03/05/2025 5:37 PM SKIDWAY WORKER) Anatomical Region Laterality Modality Upper Extremities, Shoulder Left Comp uted Radiography Narrative 03/05/2025 5:37 PM SKIDWAY WORKER My interpretation of her x-rays today: Four views of her left shoulder including AP, Grashey, scapular Y, and axillary show that her instrumentation from her reverse total shoulder arthroplasty remains in excellent position. There has been no migration or failure of any of the components. us Alma ROMAN IMG XR PROCEDURES Final Resu lt * POCT glucose (02/19/2025 11:34 AM SKIDWAY WORKER) Glucose, POC 150 70 - 199 mg/dL Blood 02/19/2025 11:3 4 AM SKIDWAY WORKER 02/19/2025 11:34 AM SKIDWAY WORKER Ishan Gutiérrez MD LAB POCT ORDERABLES - DEVICE Final Result [address] [address] * eGFR (02/19/2025 6:15 AM SKIDWAY WORKER) Pathologist [facility] eGFR >90 >=60 mL/min/1. 73 m2 Comment: Interpretive Data Reference Interval Normal >/= 90 mL/min/1.73m2 Mildly decreased* 60 - 89 mL/min/1.73m2 Mildly to moderately decreased 45 - 59 mL/min/1.73m2 Moderately to severely decreased 30 - 44 mL/min/1.73m2 Severely decreased 15 - 29 mL/min/1.73m2 Kidney Failure < 15 mL/min/1.73m2 *Relative to young adult level Estimated glomerular filtration rate is determined by the 2020 CKD-EPI equation recommended by the National Kidney Foundation (A Unifying Approach to GFR Estimation: Recommendations of the NKF-ASK Task Force on Reassessing the Inclusion of Race in Diagnosing Kidney Disease, JASN 2020). The CKD-EPI equation should not be used for patients with unstable renal function and has not been validated in children and those over 70. Current interpretive data was last reviewed 2021. Blood 02/19/2025 6:15 AM SKIDWAY WORKER 02/19/2025 6:55 AM SKIDWAY WORKER us Ishan Gutiérrez MD LAB BLOOD ORDERABLES Final Re sult [address] [place] [address] * Differential, auto (02/19/2025 6:15 AM SKIDWAY WORKER) Pathologist [facility] Neutrophil abs 1.54 1.50 - 6.50 K/cumm Imm gran abs 0.01 0.00 - 0.10 K/cumm [facility] Lymphocyte abs 0.89 0.80 - 3.30 K/cumm [facility] Monocyte abs 0.38 0.20 - 0.80 K/cumm [facility] Eosinophil abs 0.07 0.00 - 0.50 K/cumm [facility] Basophil abs 0.01 0.00 - 0.10 K/cumm [facility] Neutrophil pct 53.2 % [facility] Comment: Interpretive Data Percent cell count reference ranges are not reported, since discordance with absolute values may lead to misinterpretation of CBC data. Current Interpretive Data was last revised on 2017. Imm gran pct 0.3 % [facility] Comment: Interpretive Data Percent cell count reference ranges are not reported, since discordance with absolute values may lead to misinterpretation of CBC data. Current Interpretive Data was last revised on 2017. Lymphocyte pct 30.7 % [facility] Comment: Interpretive Data Percent cell count reference ranges are not reported, since discordance with absolute values may lead to misinterpretation of CBC data. Current Interpretive Data was last revised on 2017. Monocyte pct 13.1 % [facility] Comment: Interpretive Data Percent cell count reference ranges are not reported, since discordance with absolute values may lead to misinterpretation of CBC data. Current Interpretive Data was last revised on 2017. Eosinophil pct 2.4 % [facility] Comment: Interpretive Data Percent cell count reference ranges are not reported, since discordance with absolute values may lead to misinterpretation of CBC data. Current Interpretive Data was last revised on 2017. Basophil pct 0.3 % [facility] Comment: Interpretive Data Percent cell count reference ranges are not reported, since discordance with absolute values may lead to misinterpretation of CBC data. Current Interpretive Data was last revised on 2017. Blood 02/19/2025 6:15 AM SKIDWAY WORKER 02/19/2025 6:55 AM SKIDWAY WORKER us Ishan Gutiérrez MD LAB BLOOD ORDERABLES Final Re sult [address] Department [place] [address] * (ABNORMAL) CBC with auto differential (02/19/2025 6:15 AM SKIDWAY WORKER) Pathologist [facility] WBC 2.90(L) 3.80 - 9.90 K/cumm Hgb 8.1(L) 11.9 - 15.5 g/dL [facility] Hct 26.7(L) 35.6 - 45.5 % [facility] Plt 92(L) 150 - 400 K/cumm [facility] MPV 10.0 9.1 - 12.3 fL [facility] RBC 2.71(L) 3.90 - 5.20 M/cumm [facility] MCV 98.5(H) 81.3 - 96.4 fL [facility] MCH 29.9 27.1 - 33.3 pg [facility] MCHC 30.3(L) 32.3 - 35.7 g/dL [facility] RDW CV 14.6 11.1 - 14.9 % [facility] RDW SD 52.5(H) 35.7 - 48.1 fL [facility] NRBC abs 0.00 0.00 - 0.01 K/cumm [facility] Blood 02/19/2025 6:15 AM SKIDWAY WORKER 02/19/2025 6:55 AM SKIDWAY WORKER us Ishan Gutiérrez MD LAB BLOOD ORDERABLES Final Re [facility] [address] Department [place] [address] * (ABNORMAL) Basic metabolic panel (02/19/2025 6:15 AM SKIDWAY WORKER) [facility] Sodium 143 135 - 145 mmol/L Potassium, pl 3.3 3.3 - 4.9 mmol/L [facility] Chloride 116(H) 97 - 110 mmol/L [facility] CO2 20(L) 22 - 32 mmol/L [facility] Anion gap 7 2 - 15 mmol/L [facility] BUN 12 6 - 25 mg/dL [facility] Creatinine 0.60 0.60 - 1.10 mg/dL [facility] Glucose 109 70 - 199 mg/dL [facility] Comment: Interpretive Data Fasting glucose >/= 126 mg/dl is diagnostic for diabetes. Fasting is defined as no caloric intake for at least 8 hours. Fasting glucose between 100 mg/dl to 125 mg/dl is diagnostic of prediabetes. In a patient with classic symptoms of hyperglycemia or hyperglycemic crisis, a random glucose >/= 200 mg/dl is diagnostic for diabetes. In the absence of unequivocal hyperglycemia, results should be confirmed by repeat testing. The classification and Diagnosis of Diabetes Diabetes Care 2021; 46: S19-S40. Current interpretive data was last revised 2022. Calcium 6.4(C) 8.5 - 10.3 mg/dL [address] [address] Comment:Critical Result call ed to and read back by Hilary bah, DATE: 2025-02-19 07:31:45 BY: Gabriel Sales Blood 02/19/2025 6:15 AM SKIDWAY WORKER 02/19/2025 6:55 AM SKIDWAY WORKER Ishan Gutiérrez MD LAB BLOOD ORDERABLES Final Re sult Performing Organization Address City/[facility]/ZIP Co de Phone Number SCOTT [address] [place] [address] * POCT glucose (02/19/2025 6:12 AM SKIDWAY WORKER) Glucose, POC 133 70 - 199 mg/dL Blood 02/19/2025 6:12 AM SKIDWAY WORKER 02/19/2025 6:12 AM SKIDWAY WORKER Ishan Gutiérrez MD LAB POCT ORDERABLES - DEVICE Final Result Performing Organization Address [facility]/ZIP Co de Phone Number SCOTT [address] [place] [address] * POCT glucose (02/18/2025 8:36 PM SKIDWAY WORKER) Glucose, POC 157 70 - 199 mg/dL Blood 02/18/2025 8:36 PM SKIDWAY WORKER 02/18/2025 8:36 PM SKIDWAY WORKER Ishan Gutiérrez MD LAB POCT ORDERABLES - DEVICE Final Result Performing Organization Address City/[facility] Co de Phone Number [address] [address] [place] [address] * POCT glucose (02/18/2025 5:43 PM SKIDWAY WORKER) Glucose, POC 166 70 - 199 mg/dL Blood 02/18/2025 5:43 PM SKIDWAY WORKER 02/18/2025 5:43 PM SKIDWAY WORKER Ishan Gutiérrez MD LAB POCT ORDERABLES - DEVICE Final Result Performing Organization Address [facility] de Phone Number [address] [address] [place] [address] * Surgical pathology (02/18/2025 3:56 PM SKIDWAY WORKER) Tissue (Humeral head, Non-fracture) 02/18/2025 12:18 PM SKIDWAY WORKER Narrative PATHOLOGY - 02/20/2025 8:34 PM SKIDWAY WORKER EPIC results best viewed via link to PDF [facility] Department of Pathology [address] [place] [id number] Note to Patients: This report may contain a detailed description of human tissue sent by a health care provider to the laboratory for pathologic evaluation. The content of this report is essential for diagnosis and may provide important critical findings. This information may be unfamiliar to patients to review without a medical professional present. It is advised that the patient review this report in the presence of a health care provider who can answer questions and explain the details. Final Report Patient Name: SEDRICK KITCHEN Address: [address] [place] [address]- Gender: F : 1950 (Age: 74) Service: Ortho Location: [address] Hospital #: [id number] Patient Type: EP OP in bed Taken: 02/18/2025 Received: 02/18/2025 Accessioned: 02/18/2025 Reported: 02/20/2025 Physician(s):MD Dr. Morris Garcia M.D. Diagnosis: Shoulder, left, total shoulder arthroplasty: - Degenerative joint disease. Garret Avila M.D. Report Electronically Reviewed and Signed Out By Garret Avila M.D. 02/20/2025 20:34:42 Specimen(s) Received: A: Left shoulder Microscopic Description: Microscopic examination of the decalcified section from the left shoulder shows degenerative changes that include erosion of the articular cartilage as well as clustering and fibrillation of chondrocytes. The marrow space is replaced by mature adipose tissue with a few unremarkable hematopoietic elements. There is no evidence of malignancy. Clinical History: Arthritis of left left shoulder region Procedure: left arthroplasty shoulder - reverse total Gross Description: The container is labeled SEDRICK KITCHEN and total cuts. It is a 5.3 cm in diameter discoid-shaped piece of red-dominguez bone with an articular surface on one side . The articular surface shows erosion, pitting and granularity. The specimen is decalcified and Represented in 1 cassette.. Agnie Blanc R.N., P.A./Ebonie Levi M.D. REPORT IMAGES AND SCANNED DOCUMENTS, IF INCLUDED, ONLY VIEWABLE IN PDF VERSION OF REPORT The performance characteristics of some immunohistochemical stains, fluorescence in-situ hybridization tests and immunophenotyping by flow cytometry cited in this report (if any) were determined by the Surgical Pathology Department at [facility] as part of an ongoing quality assurance advisor program and in compliance with federally mandated regulations drawn from the Clinical Laboratory Improvement Act of 1988 (CLIA '88). Some of these tests rely on the use of analyte specific reagents and are subject to specific labeling requirements by the US Food and Drug Administration. Such diagnostic tests may only be performed in a facility that is certified by the Department of Health and Human Services as a high complexity laboratory under CLIA '88. The FDA has determined that such clearance or approval is not necessary. This test is used for clinical purposes. It should not be regarded as investigational or for research. Nevertheless, federal rules concerning the medical use of analyte specific reagents require that the following disclaimer be attached to the report: This test was developed and its performance characteristics determined [facility]. It has not been cleared or approved by the U. S. Food and Drug Administration. Note for decalcified specimens: This assay has not been validated on decalcified tissues. Results should be interpreted with caution given the possibility of false negativity on decalcified specimens Ishan Gutiérrez MD LAB PATHOLOGY ORDERABLES Wendy olivas Result PATHOLOGY [address] [place] [address] * XR Shoulder Left 2+ View (02/18/2025 2:53 PM SKIDWAY WORKER) Anatomical Region Laterality Modality Upper Extremities, Shoulder Left Comp uted Radiography 02/18/2025 3:40 PM SKIDWAY WORKER Impressions 02/18/2025 3:40 PM SKIDWAY WORKER Left reverse total shoulder arthroplasty. Mild acromioclavicular arthrosis. Postoperative findings in the visualized spine and abdomen. Electronically signed by: Alexi Vegas II, D.O. Narrative 02/18/2025 3:40 PM SKIDWAY WORKER EXAMINATION: XR SHOULDER LEFT 2 OR MORE VIEWS DATE: 02/18/2025 2:45 PM HISTORY: Postop. COMPARISON: 01/24/2025. Procedure Note Alexi Vegas II, DO - 02/18/2025 EXAMINATION: XR SHOULDER LEFT 2 OR MORE VIEWS DATE: 02/18/2025 2:45 PM HISTORY: Postop. COMPARISON: 01/24/2025. IMPRESSION: Left reverse total shoulder arthroplasty. Mild acromioclavicular arthrosis. Postoperative findings in the visualized spine and abdomen. Electronically signed by: Alexi Vegas II, D.O. Ishan Gutiérrez MD IMG XR PROCEDURES Final Resul t * POCT glucose (02/18/2025 1:37 PM SKIDWAY WORKER) Glucose, POC 102 70 - 199 mg/dL Blood 02/18/2025 1:37 PM SKIDWAY WORKER 02/18/2025 1:37 PM SKIDWAY WORKER Ishan Gutiérrez MD LAB POCT ORDERABLES - DEVICE Final Result Performing Organization Address City/[facility] Co de Phone Number [address] [place] [address] * POCT glucose (02/18/2025 11:32 AM SKIDWAY WORKER) Glucose, POC 99 70 - 199 mg/dL Blood 02/18/2025 11:3 2 AM SKIDWAY WORKER 02/18/2025 11:32 AM SKIDWAY WORKER Ishan Gutiérrez MD LAB POCT ORDERABLES - DEVICE Final Result Performing Organization Address [facility] de Phone Number SCOTT [address] [place] [address] * Clinical pathology report (02/18/2025 11:31 AM SKIDWAY WORKER) Miscellaneous 02/18/2025 11: 31 AM SKIDWAY WORKER 02/24/2025 11:31 AM SKIDWAY WORKER Narrative 02/27/2025 9:17 AM SKIDWAY WORKER EPIC results best viewed via link to PDF [facility] Department of Pathology [address] [place] [id number] Final Report Note to Patients: This report may contain a detailed description of human tissue sent by a health care provider to the laboratory for pathologic evaluation. The content of this report is essential for diagnosis and may provide important critical findings. This information may be unfamiliar to patients to review without a medical professional present. It is advised that the patient review this report in the presence of a health care provider who can answer questions and explain the details. Patient Name: SEDRICK KITCHEN Address: [address] [place] [address]- Gender: F : 1950 (Age: 74) Service: Ortho Location: [address] Hospital #: [id number] Patient Type: EP OP in bed Taken: 02/18/2025 Received: 02/24/2025 Accessioned: 02/24/2025 Physician(s): Ishan Gutiérrez MD Specimen(s) Received A: Blood Blood Bank Clinical ConsultationReported:02/27/2025 Interpretation: Crossmatch compatible red blood cells lacking the K antigen should be transfused. Garret Avila M.D.Report Electronically Reviewed and Signed Out By Garret Avila M.D. 02/27/2025 09:16:55 The performance characteristics of some immunohistochemical stains, fluorescence in-situ hybridization tests and immunophenotyping by flow cytometry cited in this report (if any) were determined by the Surgical Pathology Department at [facility] as part of an ongoing quality assurance advisor program and in compliance with federally mandated regulations drawn from the Clinical Laboratory Improvement Act of 1988 (CLIA '88). Some of these tests rely on the use of analyte specific reagents and are subject to specific labeling requirements by the US Food and Drug Administration. Such diagnostic tests may only be performed in a facility that is certified by the Department of Health and Human Services as a high complexity laboratory under CLIA '88. The FDA has determined that such clearance or approval is not necessary. This test is used for clinical purposes. It should not be regarded as investigational or for research. Nevertheless, federal rules concerning the medical use of analyte specific reagents require that the following disclaimer be attached to the report: This test was developed and its performance characteristics determined by the Surgical Pathology Department [facility]. It has not been cleared or approved by the U. S. Food and Drug Administration. REPORT IMAGES AND SCANNED DOCUMENTS, IF INCLUDED, ONLY VIEWABLE IN PDF VERSION OF REPORTe o us Ishan Gutiérrez MD LAB PATHOLOGY ORDERABLES Wendy olivas Result * Prepare RBC: 2 Units (02/18/2025 11:17 AM SKIDWAY WORKER) Product code [id number] [facility] Unit Number [id number] [id number] [facility] Product Blood Type OPOS [facility] Dispense Status RETURNED [facility] Product code [id number] Unit Number [id number] [id number] [facility] Product Blood Type OPOS [facility] Dispense Status RETURNED [facility] Blood 02/18/2025 11:1 7 AM SKIDWAY WORKER Narrative SCOTT - 02/22/2025 1:47 AM SKIDWAY WORKER Specify Procedure:->L total shoulder Are special requirements needed? (All products are leukoreduced and CMV- safe)- >No Date required:-[id number] LRRBC # of [id number] Reasons:-Hold for procedure (specify procedure)} Nela Mckenna DO BLOOD BANK PRODUCT ORDERABL ES Final Result [address] [address] Department of Laboratories [place] [id number] * KS AN ELECTIVE ENDOTRACHEAL AIRWAY (02/18/2025 11:02 AM SKIDWAY WORKER) Narrative Radha Rivers AA - 02/18/2025 11:02 AM SKIDWAY WORKER Radha Rivers AA 02/18/2025 11:03 AM Airway Patient location: OR Urgency: elective Indications for airway management: anesthesia and airway protection Difficult airway: no Staff: Supervising provider: Nela Mckenna DO Placed by: AA: Radha Rivers AA Emergent airway documentation: Risks and benefits discussed: yes Consent obtained: yes Consent given by: patient Airway prep: Preoxygenated: yes Patient position: sniffing Mask difficulty assessment: 1 - vent by mask Spontaneous ventilation during airway: absent Sedation level during airway: GA Final airway details: Final airway type: endotracheal airway Tube type: ETT ETT size: 7.0 mm Cuffed: yes Technique used for successful ETT placement: video laryngoscopy Insertion site: oral Blade type: Leticia Video blade type: Rosenberg Blade size: 3 Cormack-Lehane (video): grade I - full view of glottis Cuff volume: 5 mL Cuff inflated with: air ETT to lips: 21 cm Placement verified by: auscultation and CO2 detection Airway secured with: silk tape Number of attempts: 1 Nela Mckenna DO ANESTHESIA ORDERABLES Final Result * Peripheral Block (02/18/2025 10:31 AM SKIDWAY WORKER) Narrative Nela Mckenna DO - 02/18/2025 10:31 AM SKIDWAY WORKER Nela Mckenna DO 02/18/2025 10:32 AM Peripheral Block Patient location during procedure: pre-op holding Start time: 02/18/2025 10:20 AM End time: 02/18/2025 10:20 AM Reason for block: post-op pain management per surgeon request Ultrasound image in chart or stored: yes Block type: single shot Laterality: left Block type: brachial plexus - interscalene Procedure prep: Preprocedure checklist: patient identified, procedure contraindications assessed, site marked, procedure consent, surgical consent, IV checked, risks, benefits and alternatives discussed, monitors and equipment checked and timeout performed Patient position: sitting and head of bed elevated Procedure performed while patient: sedate with meaningful contact Monitoring: ECG, oximetry and blood pressure Supplemental O2: nasal cannula Prep solution: chlorhexidine/alcohol PPE: provider hat/mask and sterile gloves Skin infiltrated with lidocaine 1%: yes Peripheral nerve block: Technique: ultrasound guided (ultrasound used for needle guidance and for visualization of local anesthetic placement) Needle type: echogenic Needle gauge: 21 G Needle length: 100 mm Injection assessment: injection made incrementally with constant monitoring, local visualized surrounding nerve on ultrasound, negative aspiration for heme, no paresthesias noted, normal resistance to injection and see flowsheet for medication details (Sedation medications documented in anesthetic record) Assessment: Block success: complete Events: patient tolerated procedure well with no complications Nela Mckenna ANESTHESIA ORDERABLES Final Result * POCUS INJ PERIPHERAL NERVE (02/18/2025 9:42 AM SKIDWAY WORKER) Narrative [facility]PACS[facility] - 02/18/2025 9:42 AM SKIDWAY WORKER This procedure was performed and interpreted by the provider. Please refer to the provider's procedure/OR operative note for results. Nela Mckenna DO POCUS ORDERABLES Final Resu lt [facility] * Antibody identification (02/18/2025 9:22 AM SKIDWAY WORKER) Antibody ID 1 Anti-K Blood 02/18/2025 9:22 AM SKIDWAY WORKER 02/18/2025 9:57 AM SKIDWAY WORKER Ishan Gutiérrez MD LAB BLOOD BANK TEST ORDERABLE S Final Result Performing Organization Address City/[facility]/ZIP Co de Phone Number SCOTT [address] [place] [address] * (ABNORMAL) Protime-INR (02/18/2025 9:22 AM SKIDWAY WORKER) PT 17.0(H) 10.2 - 13.5 sec INR 1.52(H) 0.90 - 1.20 SCOTT Comment: Interpretive data Oral anticoagulant therapeutic ranges: Venous thromboembolism prophylaxis or treatment: 2.0-3.0 CARDIOLOGY Standard range: 2.0-3.0 High-intensity range: 2.5-3.5 Refer to indication-specific guidelines for appropriate target ranges for prosthetic heart valve replacement. Current interpretive data was last revised on 2019. Blood 02/18/2025 9:22 AM SKIDWAY WORKER 02/18/2025 9:33 AM SKIDWAY WORKER Jennifer Patel DIRECTOR OF IT OPERATIONS LAB BLOOD ORDERABLES Final Res ult Performing Organization Address [facility] Co de Phone Number SCOTT [address] [address] * (ABNORMAL) Type and screen (02/18/2025 9:22 AM SKIDWAY WORKER) ABO Rh O Positive Yusra, indirect Positive(A) SCOTT Blood 02/18/2025 9:22 AM SKIDWAY WORKER 02/18/2025 9:57 AM SKIDWAY WORKER Narrative SCOTT - 02/18/2025 10:56 AM SKIDWAY WORKER Has the patient had Daratumumab or Isatuximab in the past 6 months?->Unknown Alma ROMAN LAB BLOOD BANK TEST ORDERABL ES Final Result Performing Organization Address City/[facility]/ZIP Co de Phone Number JOSIANECELIA [address] [facility] [place] [address] * POCT glucose (02/18/2025 8:56 AM SKIDWAY WORKER) Glucose, POC 101 70 - 199 mg/dL Blood 02/18/2025 8:56 AM SKIDWAY WORKER 02/18/2025 8:56 AM SKIDWAY WORKER us Ishan Gutiérrez MD LAB POCT ORDERABLES - DEVICE Final Result SCOTT [address] Department [place] [address] * Clinical pathology report (02/12/2025 1:57 PM SKIDWAY WORKER) Miscellaneous 02/12/2025 1:5 7 PM SKIDWAY WORKER 02/19/2025 7:40 AM SKIDWAY WORKER Narrative 02/20/2025 9:53 PM SKIDWAY WORKER EPIC results best viewed via link to PDF [facility] Department of Pathology [address] [place], [place] [id number] Final Report Note to Patients: This report may contain a detailed description of human tissue sent by a health care provider to the laboratory for pathologic evaluation. The content of this report is essential for diagnosis and may provide important critical findings. This information may be unfamiliar to patients to review without a medical professional present. It is advised that the patient review this report in the presence of a health care provider who can answer questions and explain the details. Patient Name: SEDRICK KITCHEN Address: [address] [place] [address]- Gender: F : 1950 (Age: 74) Service: Location: Hospital #: [id number] Patient Type: Ancillary Taken: 02/12/2025 Received: 02/19/2025 Accessioned: 02/19/2025 Physician(s): Ishan Gutiérrez MD Specimen(s) Received A: Blood Blood Bank Clinical ConsultationReported:02/20/2025 Interpretation: Crossmatch compatible red blood cells lacking the K antigen should be transfused. Garret Avila M.D.Report Electronically Reviewed and Signed Out By Garret Avila M.D. 02/20/2025 21:51:20 The performance characteristics of some immunohistochemical stains, fluorescence in-situ hybridization tests and immunophenotyping by flow cytometry cited in this report (if any) were determined by the Surgical Pathology Department at [facility] as part of an ongoing quality assurance advisor program and in compliance with federally mandated regulations drawn from the Clinical Laboratory Improvement Act of 1988 (CLIA '88). Some of these tests rely on the use of analyte specific reagents and are subject to specific labeling requirements by the US Food and Drug Administration. Such diagnostic tests may only be performed in a facility that is certified by the Department of Health and Human Services as a high complexity laboratory under CLIA '88. The FDA has determined that such clearance or approval is not necessary. This test is used for clinical purposes. It should not be regarded as investigational or for research. Nevertheless, federal rules concerning the medical use of analyte specific reagents require that the following disclaimer be attached to the report: This test was developed and its performance characteristics determined by the Surgical Pathology Department [facility]. It has not been cleared or approved by the U. S. Food and Drug Administration. REPORT IMAGES AND SCANNED DOCUMENTS, IF INCLUDED, ONLY VIEWABLE IN PDF VERSION OF REPORTe o us Ishan Gutiérrez MD LAB PATHOLOGY ORDERABLES Wendy l Result * eGFR (02/12/2025 1:57 PM SKIDWAY WORKER) eGFR 80 >=60 mL/min/1. 73 m2 Comment: Interpretive Data Reference Interval Normal >/= 90 mL/min/1.73m2 Mildly decreased* 60 - 89 mL/min/1.73m2 Mildly to moderately decreased 45 - 59 mL/min/1.73m2 Moderately to severely decreased 30 - 44 mL/min/1.73m2 Severely decreased 15 - 29 mL/min/1.73m2 Kidney Failure < 15 mL/min/1.73m2 *Relative to young adult level Estimated glomerular filtration rate is determined by the 2020 CKD-EPI equation recommended by the National Kidney Foundation (A Unifying Approach to GFR Estimation: Recommendations of the NKF-ASK Task Force on Reassessing the Inclusion of Race in Diagnosing Kidney Disease, ZEINASFroylan 2020). The CKD-EPI equation should not be used for patients with unstable renal function and has not been validated in children and those over 70. Current interpretive data was last reviewed 2021. Blood 02/12/2025 1:57 PM SKIDWAY WORKER 02/12/2025 2:14 PM SKIDWAY WORKER Marly Wilkerson DIRECTOR OF IT OPERATIONS LAB BLOOD ORDERABLES Final Result [facility] [address] Department [place] [address] * Differential, auto (02/12/2025 1:57 PM SKIDWAY WORKER) Neutrophil abs 1.81 1.50 - 6.50 K/cumm Imm gran abs 0.01 0.00 - 0.10 K/cumm [facility] Lymphocyte abs 1.20 0.80 - 3.30 K/cumm [facility] Monocyte abs 0.29 0.20 - 0.80 K/cumm [facility] Eosinophil abs 0.14 0.00 - 0.50 K/cumm [facility] Basophil abs 0.03 0.00 - 0.10 K/cumm [facility] Neutrophil pct 52.0 % [facility] Comment: Interpretive Data Percent cell count reference ranges are not reported, since discordance with absolute values may lead to misinterpretation of CBC data. Current Interpretive Data was last revised on 2017. Imm gran pct 0.3 % [facility] Comment: Interpretive Data Percent cell count reference ranges are not reported, since discordance with absolute values may lead to misinterpretation of CBC data. Current Interpretive Data was last revised on 2017. Lymphocyte pct 34.5 % [facility] Comment: Interpretive Data Percent cell count reference ranges are not reported, since discordance with absolute values may lead to misinterpretation of CBC data. Current Interpretive Data was last revised on 2017. Monocyte pct 8.3 % [facility] Comment: Interpretive Data Percent cell count reference ranges are not reported, since discordance with absolute values may lead to misinterpretation of CBC data. Current Interpretive Data was last revised on 2017. Eosinophil pct 4.0 % [facility] Comment: Interpretive Data Percent cell count reference ranges are not reported, since discordance with absolute values may lead to misinterpretation of CBC data. Current Interpretive Data was last revised on 2017. Basophil pct 0.9 % [facility] Comment: Interpretive Data Percent cell count reference ranges are not reported, since discordance with absolute values may lead to misinterpretation of CBC data. Current Interpretive Data was last revised on 2017. Blood 02/12/2025 1:57 PM SKIDWAY WORKER 02/12/2025 2:14 PM SKIDWAY WORKER Marly Wilkerson NP LAB BLOOD ORDERABLES Final Result Performing Organization Address [facility] Co de Phone Number [facility] [address] [place] [address] * B K Antigen Type (02/12/2025 1:57 PM SKIDWAY WORKER) Pathologist [facility] RBC K ag Negative Blood 02/12/2025 1:57 PM SKIDWAY WORKER 02/12/2025 7:22 PM SKIDWAY WORKER Ishan Gutiérrez MD LAB BLOOD ORDERABLES Final Re sult Performing Organization Address [facility] Co de Phone Number [facility] [address] [place] [address] * (ABNORMAL) CBC with auto differential (02/12/2025 1:57 PM SKIDWAY WORKER) Pathologist [facility] WBC 3.48(L) 3.80 - 9.90 K/cumm Hgb 12.0 11.9 - 15.5 g/dL [facility] Hct 38.9 35.6 - 45.5 % [facility] Plt 156 150 - 400 K/cumm [facility] MPV 9.9 9.1 - 12.3 fL [facility] RBC 3.99 3.90 - 5.20 M/cumm [facility] MCV 97.5(H) 81.3 - 96.4 fL [facility] MCH 30.1 27.1 - 33.3 pg [facility] MCHC 30.8(L) 32.3 - 35.7 g/dL [facility] RDW CV 15.1(H) 11.1 - 14.9 % [facility] RDW SD 54.8(H) 35.7 - 48.1 fL [facility] NRBC abs 0.00 0.00 - 0.01 K/cumm [facility] Blood 02/12/2025 1:57 PM SKIDWAY WORKER 02/12/2025 2:14 PM SKIDWAY WORKER Marly Wilkerson NP LAB BLOOD ORDERABLES Final Result Performing Organization Address City/[facility]/ZIP Co de Phone Number SCOTT [address] [facility] [place] [address] * Antibody identification (02/12/2025 1:57 PM SKIDWAY WORKER) Antibody ID 1 Anti-K Blood 02/12/2025 1:57 PM SKIDWAY WORKER 02/12/2025 7:17 PM SKIDWAY WORKER Ishan Gutiérrez MD LAB BLOOD BANK TEST ORDERABLE S Final Result Performing Organization Address [facility] Co de Phone Number [facility] [address] [facility] [place] [address] * (ABNORMAL) Type and screen (02/12/2025 1:57 PM SKIDWAY WORKER) ABO Rh O Positive Yusra, indirect Positive(A) [facility] Blood 02/12/2025 1:57 PM SKIDWAY WORKER 02/12/2025 2:15 PM SKIDWAY WORKER Narrative [facility] - 02/12/2025 3:43 PM SKIDWAY WORKER Is this test being ordered in advance for a procedure?->Yes Expected date of procedure:->02/18/25 Has the patient been transfused in the past 3 months?->Unknown Has the patient been in the past 3 months?->Unknown Marly Wilkerson NP LAB BLOOD BANK TEST ORDERA BLES Final Result [address] Department [place] [address] * (ABNORMAL) Basic metabolic panel (02/12/2025 1:57 PM SKIDWAY WORKER) Sodium 141 135 - 145 mmol/L Potassium, pl 4.4 3.3 - 4.9 mmol/L [facility] Chloride 108 97 - 110 mmol/L [facility] CO2 22 22 - 32 mmol/L [facility] Anion gap 11 2 - 15 mmol/L [facility] BUN 24 6 - 25 mg/dL [facility] Creatinine 0.77 0.60 - 1.10 mg/dL [facility] Glucose 147 70 - 199 mg/dL [facility] Comment: Interpretive Data Fasting glucose >/= 126 mg/dl is diagnostic for diabetes. Fasting is defined as no caloric intake for at least 8 hours. Fasting glucose between 100 mg/dl to 125 mg/dl is diagnostic of prediabetes. In a patient with classic symptoms of hyperglycemia or hyperglycemic crisis, a random glucose >/= 200 mg/dl is diagnostic for diabetes. In the absence of unequivocal hyperglycemia, results should be confirmed by repeat testing. The classification and Diagnosis of Diabetes Diabetes Care 2021; 46: S19-S40. Current interpretive data was last revised 2022. Calcium 8.4(L) 8.5 - 10.3 mg/dL [facility] Blood 02/12/2025 1:57 PM SKIDWAY WORKER 02/12/2025 2:14 PM SKIDWAY WORKER Marly Wilkerson NP LAB BLOOD ORDERABLES Final Result [address] Department [place] [address] * CT Shoulder Left WO Contrast (01/24/2025 1:29 PM CDT) Anatomical Region Laterality Modality Upper Extremities Left Computed Tomog [place] 01/24/2025 6:11 PM CDT Impressions 01/24/2025 6:11 PM CDT 1. Left shoulder osteoarthritis. Electronically signed by: Juan Stewart M.D., MPH Narrative 01/24/2025 6:11 PM CDT EXAMINATION: CT SHOULDER LEFT WO CONTRAST TECHNIQUE: Computed tomographic examination of the left shoulder was performed without intravenous contrast. 0 ml of Optiray 350 was administered for the examination. HISTORY: Shoulder arthroplasty COMPARISON:09/01/2023 FINDINGS: There is severe osteoarthritis at the left glenohumeral joint. There is no acute fracture dislocation. No loose joint body seen. Overlying soft tissues demonstrate no gross abnormalities. Procedure Note Juan Stewart MD - 01/24/2025 EXAMINATION: CT SHOULDER LEFT WO CONTRAST TECHNIQUE: Computed tomographic examination of the left shoulder was performed without intravenous contrast. 0 ml of Optiray 350 was administered for the examination. HISTORY: Shoulder arthroplasty COMPARISON:09/01/2023 FINDINGS: There is severe osteoarthritis at the left glenohumeral joint. There is no acute fracture dislocation. No loose joint body seen. Overlying soft tissues demonstrate no gross abnormalities. IMPRESSION: 1. Left shoulder osteoarthritis. Electronically signed by: Juan Stewart M.D., MPH Ishan Gutiérrez MD IM CT PROCEDURES Final Resul t * XR Shoulder Left 4 Views (01/21/2025 12:02 PM CDT) Anatomical Region Laterality Modality Upper Extremities, Shoulder Left Comp uted Radiography Narrative 01/21/2025 12:02 PM CDT XR 4 views left shoulder including AP, grashey, scapular Y and axillary lateral demonstrate advanced glenohumeral arthritis with joint space narrowing, subchondral sclerosis, osteophyte formation and decreased acromiohumeral distance Ishan Gutiérrez MD [facility] XR PROCEDURES Final Resul t * Vitamin D 25 hydroxy (01/20/2025 2:30 PM CDT) Vitamin D 25-OH 32 30 - 80 ng/mL Comment:Testing performed by : [facility], [address] [place] [address], [place]., [address] Blood 01/20/2025 2:30 PM CDT 01/20/2025 8:10 PM CDT Ishan Gutiérrez MD LAB BLOOD ORDERABLES Final Re sult Performing Organization Address [facility] Co de Phone Number SCOTT FOSTER ([employer] [address] [place] [address] * Hemoglobin A1c (01/20/2025 2:30 PM CDT) Hgb A1C 5.3 4.0 - 5.6 % Comment:Testing performed by : [address] [address] Estimated Average Glucose 105 mg/dL SCOTT FOSTER ([employer]) Comment: The ADA recommends reporting an estimated Average Glucose (eAG) with all Hemoglobin A1c results using the equation derived from a study of 507 normal and diabetic adults. Minority populations were underrepresented and children were not included. (Diabetes Care 31:6868-1197, 2008). The eAG is not equivalent to a fasting glucose. Testing performed by: [address] [address] Blood 01/20/2025 2:30 PM CDT 01/20/2025 8:10 PM CDT Ishan Gutiérrez MD LAB BLOOD ORDERABLES Final Re sult Performing Organization Address [facility] Co de Phone Number SOCTT FOSTER ([employer]) 1 [facility] [place] [address] * (ABNORMAL) Urinalysis reflex to microscopic and culture Urine (01/09/2025 11:52 AM CDT) Color, ur Straw Yellow Comment:Testing performed by : [address] [address] Clarity, ur Clear Clear SCOTT RIVERA ([employer]) Comment:Testing performed by : [address] [address] Specific gravity, ur 1.007 1.003 - 1.030 [facility] (VIRAL) Comment:Testing performed by : [address], [address] pH, urine 6.0 [facility] ([facility]IRAL) Comment: Interpretive Data U rine pH is affected by diet, medications, systemic acid-base disturbances, and renal tubular function. pH may affect urinary stone formation. For example, urine pH below 6.0 may help reduce the tendency for calcium phosphate stones and pH greater than 6.0 may reduce the tendency for uric acid stone formation. Source: [facility] HBCS Current Interpretive Data was last revised on 2017 Testing performed by: [address] [address] Protein, ur ql Negative Negative [facility] (VIRAL) Comment:Testing performed by : [address], [address] Glucose, ur ql Negative Negative [facility] ([place]IR[place]) Comment:Testing performed by : [address], [address] Ketones, ur Negative Negative [facility] (VIRAL) Comment:Testing performed by : [address], [address] Bilirubin, ur Negative Negative [facility] ([facility]IR[facility]) Comment:Testing performed by : [address], [address] Blood, ur Negative Negative [facility] ([facility]IR[facility]) Comment:Testing performed by : [address], [address] Urobilinogen, ur <2.0 <2.0 mg/dL [facility] ([facility]IR[facility]) Comment:Testing performed by : [address], [address] Nitrite, ur Negative Negative [facility] (VIRAL) Comment:Testing performed by : [address], [address] Leukocyte esterase, ur 2+(A) Negative [facility] (VIRAL) Comment:Testing performed by : [address], [address] UA reflex comment Reflex to microscopic UA will be performed. [facility] (VIRAL) Comment:Testing performed by : [address], [address] Urine 01/09/2025 11:5 2 AM CDT 01/09/2025 6:26 PM CDT Morris Casas MD LAB MICROBIOLOGY - GENERA L ORDERABLES Final Result Performing Organization Address [facility]/ZIP Co de Phone Number SCOTT FOSTER ([employer] 1 [facility] [place] [address] * Urinalysis, microscopic only (01/09/2025 11:52 AM CDT) WBC, ur 0-5 0 - 5 /HPF Comment:Testing performed by : [facility], [address] [place] [address]., [address] RBC, ur 0-2 0 - 2 /HPF SCOTT FOSTER (VIRAL) Comment:Testing performed by : [facility], [address] [place] [address], [address] Epithelial cells, squamous, ur 1-5 0 - 5 /HPF SCOTT FOSTER (VIRAL) Comment:Testing performed by : [facility], [address] [place] [address], [id number] Culture Reflex Comment Reflex conditions for urine culture (WBC >10) not met. SCOTT FOSTER (VIRAL) Comment:Testing performed by : [facility], [address] [place] [address]., [id number] Urine 01/09/2025 11:5 2 AM CDT 01/09/2025 6:26 PM CDT Morris Casas MD LAB URINE ORDERABLES Wendy l Result Performing Organization Address [facility]/ZIP Co de Phone Number SCOTT FOSTER (VIRAL) 1 [facility] [place] [address] * (ABNORMAL) Albumin Creatinine Ratio, Urine (12/17/2024 2:48 PM CDT) Albumin Ur 18.1 mg/L Comment: Interpretive Data No reference range established. Current interpretive data was last revised 2018. Testing performed by: [facility], [address] [place] [address], [id number] Creatinine Ur 38.5 mg/dL SCOTT [facility] (VIRAL) Comment: Interpretive Data No reference range established. Current interpretive data was last revised 2018. Testing performed by: [facility], [address] [place] [address], [address] Albumin Creatinine Ratio, Ur 47(H) 1 - 29 mg/g SCOTT [facility] (VIRAL) Comment:Testing performed by : [facility], [address] [place] [address], [id number] Urine 12/17/2024 2:48 PM CDT 12/17/2024 4:46 PM CDT us Morris Casas MD LAB URINE ORDERABLES Wendy olivas Result SCOTT FOSTER (VIRAL) 1 [facility] Department [place] [address] * Colonoscopy (10/23/2024 9:48 AM CDT) Anatomical Region Laterality Modality Other Narrative Procedure Note Jhoan Carpio, - 10/23/2024 9:48 AM CDT [facility] [place] Patient Name: Sedrick Kitchen Procedure Date: 10/23/2024 9:48 AM Date of : 1950 Admit Type: Outpatient Age: 74 Gender: Female Attending MD: Jhoan Carpio D.O., Room: [facility] ENDOSCOPY ROOM 3 Note Status: Finalized Patient Profile: Refer to note in patient chart for documentation of history and physical. Procedure: Colonoscopy Indications: Screening for colorectal malignant neoplasm, Last colonoscopy: February 2020 Referring MD: Morris Casas M.D. Providers: Jhoan Carpio D.O. Impression: - The examined portion of the ileum was normal. - Diverticulosis in the left colon. - Internal hemorrhoids. - No specimens collected. Recommendation: - Discharge patient to home. - Resume previous diet. - Continue present medications. - Repeat colonoscopy in 5 years for screening purposes. 2-3 day preparation required. - Return to GI office as previously scheduled. Medicines: Monitored Anesthesia Care Complications: No immediate complications. Estimated Blood Loss: Estimated blood loss: none. Procedure: Pre-Anesthesia Assessment: - As per anesthesia. - As per anesthesia. The benefits, risks and alternatives of theprocedure and sedation were discussed and informed consentwas obtained. All questions were answered. Please referto the signed informed consent document in the medical record. The bowel preparation used was Miralax and bisacodyl tablets via split dose instruction. The scope was passed under direct vision. TheColonoscope [id number] was introduced through the anus and advanced to the 5 cm into the ileum. The colonoscopy was performed without difficulty. The patient tolerated the procedure well. The qualityof the bowel preparation was adequate to identifypolyps. Anatomical landmarks were photographed. Findings: The perianal and digital rectal examinations were normal. The terminal ileum appeared normal. A single diverticulum was found in the left colon. Internal hemorrhoids were found. The hemorrhoids were small. No additional abnormalities were found on retroflexion. Electronically signed by Jhoan Carpio M.D. Jhoan Carpio D.O. 10/23/2024 11:35:27 AM Number of Addenda: 0 Note Initiated On: 10/23/2024 9:48 AM Procedure Code(s): --- Professional --- G0121, Colorectal cancer screening; colonoscopy on individual not meeting criteria for high risk --- Technical --- G0121, Colorectal cancer screening; colonoscopy on individual not meeting criteria for high risk Diagnosis Code(s): --- Professional --- K57.30, Diverticulosis of large intestine without perforation orabscess without bleeding K64.8, Other hemorrhoids Z12.11, Encounter for screening for malignant neoplasm of colon --- Technical --- K57.30, Diverticulosis of large intestine without perforation orabscess without bleeding K64.8, Other hemorrhoids Z12.11, Encounter for screening for malignant neoplasm of colon CPT copyright 2022 [employer]. All rights reserved. The codes documented in this report are preliminary and upon kiosk sales representative reviewmay be revised to meet current compliance requirements. Recognized by the [employer] for promoting quality in endoscopy Jhoan Carpio DO ENDOSCOPY PROCEDURES Final Res ult * Dexa Axial Skeleton Bone Density 1 or 2 Site (09/26/2024 11:03 AM CDT) Anatomical Region Laterality Modality Body N/A Other 09/26/2024 2:33 PM CDT Narrative 09/26/2024 2:34 PM CDT EXAM DESCRIPTION: DEXA AXIAL SKELETON BONE DENSITY 1 OR MORE SITES REASON FOR STUDY: 74 y/o year old F with given history of: Asymptomatic menopausal state Routine Performed bilat hips - pt has hardware throughout the entire spine Rubber Stamp Assembler/Model: [employer] Discovery SL (S/N [id number]) Facility LSC value of 0.022 for the AP spine, 0.027 for the femur, and 0.023 for the forearm. CLINICAL INFORMATION: Current height: 65 inches Maximum height: 65 inches Weight: 169 pounds Risk factors: Postmenopausal COMPARISON: None available FINDINGS: Right HIP: Total BMD is 0.772 g/cm2 T-score is -1.4 Femoral neck BMD is 0.772 g/cm2 T-score is -0.7 LEFT HIP: Total BMD is 0.683 g/cm2 T-score is -2.1 Femoral neck BMD is 0.487 g/cm2 T-score is -3.3 FRAX: FRAX not reported due to T-scores of hip, femoral neck and/or spine being at or below -2.5 (Osteoporosis). IMPRESSION: 1. Osteoporosis. REFERENCE: Bone mineral density: T-Score: Normal (T-score above or = -1.0) Low bone mass (T-score between -1.0 and -2.5) replaces the previously used term osteopenia Osteoporosis (T-score = or below -2.5) Z-Score: Within the expected range for age (Z-score above -2.0) Below the expected range for age (Z-score is -2.0 or below) Please see below follow up recommendations. Medical evaluation for secondary causes of low bone mineral density may be appropriate. FRAX is a World Health Organization validated fracture risk assessment tool that calculates a person's 10 year probability of a major osteoporosis related fracture and hip fracture. According to the National Osteoporosis Foundation guidelines, postmenopausal women and men age 50 or older with low bone mass and a 10 year probability of a major osteoporosis related fracture = or greater than 20% or a 10 year probability of a hip fracture = or greater than 3% should be considered for pharmacological treatment for the prevention of osteoporosis. For further information, including treatment recommendations, please refer to the 2019 ISCD Official Positions (http://www.iscd.org) and the NOF's Clinician's Guide to Prevention and Treatment of Osteoporosis (http://www.nof.org/professionals/clinical-guidelines) THIS IS AN ELECTRONICALLY VERIFIED FINAL REPORT 09/26/2024 2:34 PM - Electronically signed by Ochoa Hernandez M.D. MF: LATRELL Report ID: [id number] Reading Location: [id number] Procedure Note Ochoa Hernandez MD - 09/26/2024 EXAM DESCRIPTION: DEXA AXIAL SKELETON BONE DENSITY 1 OR MORE SITES REASON FOR STUDY: 74 y/o year old F with given history of:Asymptomatic menopausal state Routine Performed bilat hips - pt has hardware throughout the entirespine Rubber Stamp Assembler/Model: [employer] Discovery SL (S/N [id number]) Facility LSC value of 0.022 for the AP spine, 0.027 for the femur, and0.023 for the forearm. CLINICAL INFORMATION: Current height: 65 inches Maximum height: 65 inches Weight: 169 pounds Risk factors: Postmenopausal COMPARISON: None available FINDINGS: Right HIP: Total BMD is 0.772 g/cm2 T-score is -1.4 Femoral neck BMD is 0.772 g/cm2 T-score is -0.7 LEFT HIP: Total BMD is 0.683 g/cm2 T-score is -2.1 Femoral neck BMD is 0.487 g/cm2 T-score is -3.3 FRAX: FRAX not reported due to T-scores of hip, femoral neck and/or spine beingat or below -2.5 (Osteoporosis). IMPRESSION: 1. Osteoporosis. REFERENCE: Bone mineral density: T-Score: Normal (T-score above or = -1.0) Low bone mass (T-score between -1.0 and -2.5) replaces thepreviously used term osteopenia Osteoporosis (T-score = or below -2.5) Z-Score: Within the expected range for age (Z-score above -2.0) Below the expected range for age (Z-score is -2.0 or below) Please see below follow up recommendations. Medical evaluation forsecondary causes of low bone mineral density may be appropriate. FRAX is a World Health Organization validated fracture risk assessmenttool that calculates a person's 10 year probability of a major osteoporosisrelated fracture and hip fracture. According to the National OsteoporosisFoundation guidelines, postmenopausal women and men age 50 or older with low bonemass and a 10 year probability of a major osteoporosis related fracture = or greater than 20% or a 10 year probability of a hip fracture = or greaterthan 3% should be considered for pharmacological treatment for the preventionof osteoporosis. For further information, including treatment recommendations, please referto the 2019 ISCD Official Positions (http://www.iscd.org) and the NOF's Clinician's Guide to Prevention and Treatment of Osteoporosis (http://www.nof.org/professionals/clinical-guidelines) THIS IS AN ELECTRONICALLY VERIFIED FINAL REPORT 09/26/2024 2:34 PM - Electronically signed by Ochoa Hernandez M.D. MF: LATRELL Report ID: [id number] Reading Location: [place] [address] Morris Casas MD IMG DXA PROCEDURES Final Result * Hepatitis panel, acute Blood (08/22/2024 4:46 AM CDT) Hep A IgM Nonreactive Nonreactive Comment: Interpretive Data: If Hep A IgM Ab is reported as Equivocal, a new sample should be drawn in two weeks for testing. Current interpretive data was last revised on 19. Testing performed by: [facility], [address] [place] [address]., [id number] Hep B core IgM Nonreactive Nonreactive Norma FOSTER (VIRAL) Comment: Interpretive Data If HepB Core IgM Ab is reported as Equivocal, a new sample should be drawn in two weeks for testing. Current interpretive data was last revised on 19. Testing performed by: [facility], [address] [place] [address]., [id number] Hep C Ab Nonreactive Nonreactive SCOTT FOSTER (VIRAL) Comment: Interpretive Data Nonreactive: Antibodies to HCV not detected. Does NOT exclude the possibility of recent exposure to HCV. Equivocal: Equivocal for HCV antibodies. Supplemental molecular testing will be automatically performed to determine infection status in accordance with current CDC screening recommendations. Reactive: Positive for HCV antibodies. This may represent current or past HCV infection. Supplemental molecular testing will be automatically performed to determine current infection status in accordance with current CDC screening recommendations. Interpretive data was last revised on 2019. Testing performed by: [facility], [address] [place] [address]., [id number] HepBsAg Nonreactive Nonreactive SCOTT FOSTER (VIRAL) Comment:Testing performed by : [facility], [address] [place] [address]., [id number] Blood 08/22/2024 4:46 AM CDT 08/22/2024 10:09 AM CDT us Nu Martinez NP LAB MICROBIOLOGY - GENERAL ORDERABLES Final Result SCOTT FOSTER VIRAL) 1 [facility] Department [place] [address] * Diabetic Eye Exam (08/13/2024) 08/13/2024 Historical Provider HEALTH MAINTENANCE Final Result * Diagnostic Mammogram Bilateral W Santosh (07/26/2024 1:04 PM CDT) Anatomical Region Laterality Modality Breast Bilateral Mammography 07/26/2024 1:19 PM CDT Impressions 07/26/2024 1:19 PM CDT 1. The probably benign right breast calcifications on prior diagnostic mammogram represent benign vascular calcifications on today's follow-up mammogram. 2. The probably benign asymmetry in the inner left breast on the CC view is not seen on today's follow-up mammogram. This was occult on prior ultrasound and is considered be benign, likely representing normal dense fibroglandular tissue. 3. Mild bilateral breast skin/trabecular thickening has improved in the interval and is likely systemic. 4. No new suspicious finding in either breast on mammogram. Screening mammogram in one year is recommended. The patient was notified of these findings and recommendations at the time of the examination. OVERALL FINAL ASSESSMENT: BI-RADS Category 2: Benign. Electronically signed by: Artem Moseley M.D. Narrative 07/26/2024 1:19 PM CDT EXAMINATION: BILATERAL DIGITAL DIAGNOSTIC MAMMOGRAM INCLUDING CAD AND BILATERAL DIGITAL BREAST TOMOSYNTHESIS HISTORY: 74-year-old female presents for follow-up of probably benign findings in both breasts. COMPARISON: 10/05/2023, 09/20/2022, 07/02/2021 TECHNIQUE: Full field digital mammographic views of BOTH breasts were performed, including computer aided detection (CAD) and BILATERAL digital breast tomosynthesis (DBT). BREAST PARENCHYMAL COMPOSITION: There are scattered areas of fibroglandular density. MAMMOGRAM FINDINGS: There is mild bilateral breast skin/trabecular thickening, which has improved in the interval and is likely systemic. There is an unchanged biopsy marking clip in the lower inner right breast. The previously noted probably benign calcifications in the inner right breast (on CC view only) have not suspiciously changed and represent benign vascular calcifications on today's mammogram. There are multiple additional benign vascular calcifications in both breasts. The previously noted probably benign asymmetry in the inner left breast, middle depth, on the CC view is not identified on today's follow-up mammogram. This was occult on prior ultrasound and is considered to be benign, likely representing normal dense fibroglandular tissue. There is no new suspicious finding in either breast on mammogram. Lilly Woodward NP IMG MAMMO PROCEDURES Final Result * DIABETES FOOT EXAM (08/01/2016) Diabetic Foot Exam Normal Historical Provider MD HEALTH MAINTENANCE Final Result from Last 3 Months or Most Recently Relevant to Health Maintenance Insurance [employer] MEDICARE [place] [address] [employer] MEDIC[employer] PPO [employer] PPO Advance Directives For more information, please contact: [phone] * Full Code (Latest Code Status on File) Date Activated Date Inactivated Comments 02/18/2025 7:06 PM 02/19/2025 7:15 PM * Full Code Date Activated Date Inactivated Comments 10/23/2024 9:10 AM 10/23/2024 4:15 PM * Full Code Date Activated Date Inactivated Comments 10/23/2024 9:10 AM 10/23/2024 9:10 AM * Full Code Date Activated Date Inactivated Comments 08/18/2024 3:47 PM 08/22/2024 8:08 PM * Full Code Date Activated Date Inactivated Comments 03/03/2020 9:55 AM 03/03/2020 4:09 PM Healthcare Agents on File Name Relationship Healthcare Agent [facility] Communication Lilly Kitchen Daughter First Alternate Health Care Agent Care Teams Furnace Tender Relationship Specialty Start Date End Date Morris Casas MD [address] [place] [address] PCP - General Family Medicine 08/15/17 Colton Abraham Horticultural Farm Manager Physical Therapy 12/01/17 Malcolm Shen MD Medical Oncologist/Culinary Art Teacher Hematology and Oncology 04/20/22 Cayetano Tan MD Consulting Physician Neurology 08/22/24
[2025-04-01 13:24] LABS: EDUAAPPEAR Clear; EDUABILI Negative (Negative); EDUABLOOD 2+ (Negative); EDUACOLOR1 Dark; EDUAGLUCOSE Negative (Negative); EDUAKETONE Negative (Negative); EDUALEUKO Negative (Negative); EDUANITRATE Negative (Negative); EDUAPH 5.5; EDUAPROTEIN Negative (Negative); EDUASPGRAVITY 1.020; EDUAUROBILI 0.2
--- NOTE | 2025-04-01 14:01 | ED.FEMALEGU ---
HPI - Female Genitourinary General Chief complaint: Urogenital-Female Stated complaint: poss uti Time Seen by Provider: 04/01/25 13:45 Source: patient and RN notes reviewed Mode of arrival: ambulatory Limitations: no limitations History of Present Illness HPI Narrative: 75-year-old female presents Express Care complaining vaginal bleeding, lower abdominal pain, and low back pain. Patient said it started the last couple days ago. Patient reports bright red vaginal bleeding, since she has not had any vaginal bleeding today though. Patient said this has never happened before. Patient has a maybe she is having a urinary tract infection. Patient denies any fevers, body aches, chills, nausea vomiting, diarrhea, chest pain, breathing problems, or any other symptoms. Patient recently had a left shoulder surgery. Related Data Home Medications ?Medication ?Instructions ?Recorded ?Confirmed ?Last Taken ?Type alprazolam 0.5 mg tablet 0.5 mg PO BID PRN Anxiety 12/10/20 12/10/20 Unknown History buspirone 15 mg tablet 15 mg PO TID 12/10/20 12/10/20 Unknown History zbezivqfmi-wnrgstbkhkkbp-uofjotrh 2 tablet PO Q4-6H PRN Pain 12/10/20 12/10/20 Unknown History 50 mg-325 mg-40 mg tablet duloxetine 30 mg capsule,delayed 30 mg PO BID 12/10/20 12/10/20 Unknown History release gabapentin 400 mg capsule 400 mg PO BID 12/10/20 12/10/20 Unknown History levothyroxine 100 mcg tablet 100 mcg PO DAILY 12/10/20 12/10/20 Unknown History losartan 100 mg tablet 100 mg PO DAILY 12/10/20 12/10/20 Unknown History montelukast 10 mg tablet 10 mg PO DAILY 12/10/20 12/10/20 Unknown History pantoprazole 40 mg tablet,delayed 40 mg PO QAM 12/10/20 12/10/20 Unknown History release simvastatin 20 mg tablet 20 mg PO DAILY 12/10/20 12/10/20 Unknown History warfarin 4 mg tablet 4 mg PO DAILY 12/10/20 12/10/20 Unknown History famotidine 20 mg tablet mg 04/01/25 Unknown History furosemide 40 mg tablet mg 04/01/25 Unknown History lubiprostone 24 mcg capsule mcg PO 04/01/25 Unknown History methocarbamol 500 mg tablet mg 04/01/25 Unknown History warfarin 3 mg tablet mg 04/01/25 Unknown History Allergies Allergy/AdvReac Type Severity Reaction Status Date / Time Sulfa (Sulfonamide Allergy Mild Rash Verified 04/01/25 13:13 Antibiotics) morphine Allergy Itching Verified 04/01/25 13:13 sulfur dioxide Allergy Itching Verified 04/01/25 13:13 Corticosteroids AdvReac Intermediate Other Verified 04/01/25 13:13 (Glucocorticoids) hydromorphone (From Dilaudid) AdvReac Mild Itching Verified 04/01/25 13:13 Review of Systems Review of Systems: CONSTITUTIONAL: Denies fever, chills, or sweats. EYES: Denies visual changes, redness, or discharge. ENT: Denies rhinorrhea, congestion, sore throat, or otalgia. CARDIOVASCULAR: Denies chest pain, palpitations, or edema. RESPIRATORY: Denies cough or dyspnea. GASTROINTESTINAL: Positive for abdominal pain. Negative for nausea, vomiting, or diarrhea. GENITOURINARY: Denies dysuria or hematuria. Positive vaginal bleeding. SKIN: Denies rash or itching. MUSCULOSKELETAL: Positive for low back pain. Negative for joint pain, or myalgia. NEUROLOGIC: Denies headache, numbness, or weakness. PSYCHIATRIC: Denies anxiety or depression. All other systems reviewed are negative, except as documented in HPI. [facility] Past Medical History Medical History Fibromyalgia Asthma Bronchitis Hypertension Hyperlipidemia Diabetes Surgical History Surgical History H/O section Hx of tonsillectomy History of bilateral knee replacement H/O gastric bypass Family History Family History Mother Heart disease Cerebrovascular accident Hypertension Grandparent Diabetes mellitus Father Hypertension Diabetes mellitus Cirrhosis Sibling Hypertension Social History Social History Smoking status: Never smoker Alcohol intake: former Alcohol use details: only socially has not had alcohol for years due to Coumadin Substance use: never Living arrangements: alone Gender identity (if verbalized by the patient): Female Comments At the time of my signature, I reviewed and agree with the nursing past medical, surgical, social, and family history. There is no relevant family history pertinent to the patient complaint. Exam Narrative: GENERAL: This is a well-nourished, well-developed adult, in no apparent distress. They are non ill-appearing, nontoxic appearing. HEAD: normocephalic, atraumatic. EYES: Sclera clear/white. Conjunctiva normal. Vision is grossly intact. Extraocular movements intact EARS: External ears normal, Hearing grossly intact. NOSE: External nose normal THROAT: Mucous membranes moist, NECK: Neck supple, CARDIOVASCULAR: Regular rate and rhythm without murmurs, gallops, or rubs. RESPIRATORY: Clear to auscultation. Breath sounds equal bilaterally. No wheezes, rales, or rhonchi. GASTROINTESTINAL: Abdomen soft, lower abdominal tenderness to palpation, nondistended. Bowel sounds are active. No hepato-splenomegaly, or palpable masses. No guarding or rigidity. SKIN: warm, Dry, intact with no suspicious lesions or rash, good texture and turgor. NEURO: awake, alert, and oriented to person, place and time. There were no obvious focal neurologic abnormalities. EXTREMITIES: No joint tenderness, effusion, or edema noted. BACK: Nontender without deformity. There is left CVA tenderness. Course Course Level of Care: Express Care Visit Vital Signs Vital signs: Vital Signs Temperature 97.9 F 04/01/25 13:01 Pulse Rate 67 04/01/25 13:01 Respiratory Rate 18 04/01/25 13:01 Blood Pressure 113/73 04/01/25 13:01 Pulse Oximetry 98 04/01/25 13:01 Oxygen Delivery Room Air 04/01/25 13:01 Temperature 97.9 F 04/01/25 13:01 Pulse Rate 67 04/01/25 13:01 Respiratory Rate 18 04/01/25 13:01 Blood Pressure 113/73 04/01/25 13:01 Pulse Oximetry 98 04/01/25 13:01 Oxygen Delivery Room Air 04/01/25 13:01 Transfer Transfered to: [facility] Transportation: Other (Private vehicle) Transfer rationale: Vaginal bleeding, abdominal pain come patient requires higher level care. Accepting physician: Dr. Georges [facility] Narrative Medical decision making narrative: Urine dipstick is show 2+ blood otherwise unremarkable. Urine culture pending. Symptoms are consistent with urinary tract infection, patient reports also having vaginal bleeding which is concerning for her age. Patient is having abdominal tenderness and CVA tenderness. Given patient's symptoms, it is recommend the patient seek a higher level care and proceed immediately to the emergency department. Patient is agreeable to go to [facility] ER. Called over to [facility] ER and spoke to Bárbara HOFFMAN who is aware this patient and Dr. Georges accepted the patient for transfer. Patient advised to remain NPO and proceed immediately to the ER. Differential Diagnosis Differential Diagnosis: Urinary tract infection, pyelonephritis, vaginal bleeding, dysmenorrhea, cervical cancer, cystitis Lab Data MDM Lab Attestation statement: I personally reviewed the patient's lab results. Labs: Lab Results 04/01/25 Range/Units 13:21 POC Urine Color Dark POC Urine Clarity Clear POC Urine pH 5.5 POC Ur Specif [place] 1.020 POC Urine Protein Negative (Negative) POC Ur Glucose (UA) Negative (Negative) POC Urine Ketones Negative (Negative) POC Urine Blood 2+ (Negative) POC Urine Nitrite Negative (Negative) POC Urine Bilirubin Negative (Negative) POC Urine Urobilinogen 0.2 POC U Leukocyte Esteras Negative (Negative) Critical Care Time Critical Care Time Critical Care Time: No Discharge Plan Discharge Clinical Impression: Abnormal vaginal bleeding Abdominal pain Qualifiers: Abdominal location: lower abdomen, unspecified Qualified Code(s): R10.30 - Lower abdominal pain, unspecified Patient Disposition: Acute Care Hospital Condition: Stable Patient Language: Estonian Prescriptions: No Action levothyroxine 100 mcg Tablet 100 mcg PO DAILY losartan 100 mg Tablet 100 mg PO DAILY gabapentin 400 mg capsule 400 mg PO BID warfarin [Coumadin] 4 mg Tablet 4 mg PO DAILY pantoprazole 40 mg Tablet,Delayed Release (Dr/Ec) 40 mg PO QAM simvastatin 20 mg Tablet 20 mg PO DAILY montelukast 10 mg Tablet 10 mg PO DAILY miqzbgmgxh-vessvloftijlm-lxsh 50-325-40 mg tablet 2 tablet PO Q4-6H PRN (Reason: Pain) alprazolam 0.5 mg Tablet 0.5 mg PO BID PRN (Reason: Anxiety) buspirone 15 mg Tablet 15 mg PO TID duloxetine 30 mg Capsule,Delayed Release(Dr/Ec) 30 mg PO BID furosemide 40 mg tablet methocarbamol 500 mg tablet warfarin 3 mg tablet famotidine 20 mg tablet lubiprostone 24 mcg capsule PO Follow-up/Referrals: Harms,Morris Son M.D. [Primary Care Provider] Time of Disposition: 14:12
== END 2025-04-01 14:15 | disposition short-term general hospital (02) ==
PROVIDERS: PCP Family Medicine
DX: N93.9 Abnormal uterine and vaginal bleeding, unspecified (principal); R10.30 Lower abdominal pain, unspecified; E11.9 Type 2 diabetes mellitus without complications; I10 Essential (primary) hypertension; E78.5 Hyperlipidemia, unspecified; J45.909 Unspecified asthma, uncomplicated; M79.7 Fibromyalgia; Z96.653 Presence of artificial knee joint, bilateral; Z98.84 Bariatric surgery status; Z79.01 Long term (current) use of anticoagulants
CPT/HCPCS: 81003; 87086; 99213; G0463